=== PATIENT | male | born 1970 | race Caucasian/White ===

== ENCOUNTER 2020-12-26 15:22 | Inpatient (IN) | payer MEDICAID ==
[~2020-12-26] VITALS: Ht 190.5 cm; Wt 125.1 kg
[2020-12-26] MEDS ORDERED: morphine 4 MG/ML inj SYRINge IV PRN (16:40)
[2020-12-26] MEDS ORDERED: furosemide 10 MG/1 ML 10ml inj IV ONE (16:40)
[2020-12-26] MEDS ORDERED: piperacillin/tazo 3.375gm/50ml 50 ML IV ONE (16:40)
--- NOTE | 2020-12-26 17:33 | NUR ---
Pt still not able to void, bladder scan for 161 ml. PA notified
[2020-12-26 17:36] LABS: ALANINE AMINOTRANSFERASE 15 U/L (12-78); ALBUMIN 3.5 G/DL (3.4-5.0); ALBUMIN/GLOBULIN RATIO 0.8 (1.1-1.5); ALKALINE PHOSPHATASE 50 IU/L (46-116); ANION GAP 17 (8-16); ASPARTATE AMINO TRANSFERASE 16 U/L (10-37); BILIRUBIN,TOTAL 0.4 MG/DL (0.1-1.0); BLOOD UREA NITROGEN 40 MG/DL (7-18); BUN/CREATININE RATIO 23.1 (5.4-32.0); CALCIUM 9.8 MG/DL (8.5-10.1); CHLORIDE 99 MMOL/L (99-107); CREATININE 1.73 MG/DL (0.60-1.10); GLUCOSE 249 MG/DL (70-104); SODIUM 134 MMOL/L (135-145); TOTAL CARBON DIOXIDE 18.4 MMOL/L (24-32); TOTAL PROTEIN 7.8 G/DL (6.4-8.2); eGFR 42 ML/MIN
[2020-12-26] MEDS ORDERED: vancomycin/NS 1 GM ADD-VANTAGE 250 ML IV ONE (17:50)
[2020-12-26 17:53] LABS: BASOPHILS # (AUTO) 0.1 X10'3 (0-0.2); BASOPHILS % (AUTO) 0.9 % (0-1); EOSINOPHILS # (AUTO) 0.1 X10'3 (0-0.9); EOSINOPHILS % (AUTO) 0.9 % (0-6); HEMATOCRIT 42.9 % (42.0-52.0); HEMOGLOBIN 13.9 g/dl (14.0-17.9); LYMPHOCYTES # (AUTO) 1.6 X10'3 (1.1-4.8); LYMPHOCYTES % (AUTO) 24.6 % (21-51); MEAN CORPUSCULAR HEMOGLOBIN 29.1 PG (27.0-31.0); MEAN CORPUSCULAR HGB CONC 32.5 g/dL (33.0-36.5); MEAN CORPUSCULAR VOLUME 89.7 FL (78-98); MEAN PLATELET VOLUME 12.1 FL (7.4-10.4); MONOCYTES # (AUTO) 0.4 X10'3 (0-0.9); MONOCYTES % (AUTO) 6.8 % (2-12); NEUTROPHILS # (AUTO) 4.3 X10'3 (1.8-7.7); NEUTROPHILS % (AUTO) 66.8 % (42-75); PLATELET COUNT 155 X10'3 (140-440); RED BLOOD COUNT 4.79 X10'6 (4.70-6.10); RED CELL DISTRIBUTION WIDTH 14.2 % (11.5-14.5); WHITE BLOOD COUNT 6.4 X10'3 (4.5-11.0)
--- NOTE | 2020-12-26 17:54 | NUR ---
PA notified of corrected BNP level
[2020-12-26 17:55] LABS: GIANT PLATELET FEW; LARGE PLATELETS MODERATE; PLATELET ESTIMATE NORMAL
[2020-12-26] MEDS: MESSAGE TO NURSING PO SCH (18:00)
[2020-12-26] MEDS ORDERED: iohexol 350MG/ML 100ml bottle IV ONE (18:06)
[2020-12-26] MEDS ORDERED: LIDOcaine 2% 10ml TOPICAL JELLY (Urojet) MM ONE (18:10)
[2020-12-26 18:28] LABS: CLARITY,URINE CLOUDY (Clear); COLOR,URINE YELLOW (Yellow); GLUCOSE, URINE NEGATIVE (Neg); KETONES,URINE NEGATIVE (Neg); LEUKOCYTE ESTERASE ,URINE NEGATIVE (Neg); NITRITES, URINE NEGATIVE (Neg); OCCULT BLOOD,URINE NEGATIVE (Neg); PROTEIN,URINE TRACE mg/dl (Neg)
--- NOTE | 2020-12-26 18:30 | NUR ---
Pt voided about 20 ml, will place oseguera per PA
[2020-12-26 18:33] LABS: UA COLLECTION TYPE CLN CATCH MIDSTREAM
[2020-12-26 18:37] LABS: RBC,URINE 0-2 /HPF (0-2); WBC,URINE 0-4 /HPF (0-4)
[2020-12-26 18:38] LABS: BACTERIA,URINE FEW /HPF (Neg); MUCUS STRANDS FEW /LPF (Neg); SQUAMOUS EPITHELIAL CELL,UR MODERATE /LPF (FEW); TRANSITIONAL EPI CELLS,URINE FEW /HPF
[2020-12-26 18:39] LABS: AMORPHOUS URATES 2+; HYALINE CASTS 0-3 /LPF (NEGATIVE)
--- NOTE | 2020-12-26 18:53 | NUR ---
Pt resting in bed, vitals taken and oseguera catheter inserted. Pt has urine flowing into bag at this time. Pt states relief. Testicular swelling being monitored as well as blood pressure.
[2020-12-26] MEDS ORDERED: NPH,100V SQ (19:41)
[2020-12-26] MEDS ORDERED: ASPI-1265 PO (19:41)
[2020-12-26] MEDS ORDERED: MAGN296S70 PO (19:41)
[2020-12-26] MEDS ORDERED: GABA-530 PO (19:41)
[2020-12-26] MEDS ORDERED: METF500T PO (19:41)
[2020-12-26] MEDS ORDERED: LIRA0.6P2 SQ (19:41)
[2020-12-26] MEDS ORDERED: LISI-644 PO (19:41)
[2020-12-26] MEDS ORDERED: GEMF600T89 PO (19:41)
[2020-12-26] MEDS ORDERED: FURO-150 PO (19:46)
--- NOTE | 2020-12-26 21:43 | NUR ---
HOSPITALIST AT BEDSIDE FOR EVAL/ADMISSION
[2020-12-26] MEDS ORDERED: potassium Cl 20 mEq SR tablet PO PRN ×2 (22:05)
[2020-12-26] MEDS ORDERED: magnesium hydroxide 30ml (MOM) UD suspension PO PRN (22:05)
[2020-12-26] MEDS ORDERED: ondansetron/PF 4mg/2ml inj IV PRN (22:05)
[2020-12-26] MEDS ORDERED: acetaminophen 325mg tablet PO PRN (22:05)
[2020-12-26] MEDS ORDERED: potassium Cl 40MEQ/1/2NS 520ml 520 ML IV PRN ×2 (22:05)
[2020-12-26] MEDS ORDERED: mag hydrox/Alum hydrox/simeth 30ml oral suspension PO PRN (22:05)
[2020-12-26] MEDS ORDERED: glucagon, human recombinant 1mg kit SUBCUT PRN (22:10)
[2020-12-26] MEDS ORDERED: dextrose ORAL solution 15 GM/59 ML bottle PO PRN ×2 (22:10)
[2020-12-26] MEDS ORDERED: dextrose 50%-water 50ml dispensing syringe IV PRN ×2 (22:10)
[2020-12-26] MEDS ORDERED: MESSAGE TO PHARMACY PO ONE (22:10)
[2020-12-26 22:26] LABS: HEMOGLOBIN A1C 10.3 % (4.5-6.2)
[2020-12-26] MEDS ORDERED: diltiazem 5mg/ml 5ml inj. IV ONE ×2 (22:30→22:55)
[2020-12-26] MEDS ORDERED: diltiazem-D5W 125mg/125ml 125 ML IV SCH (22:45)
--- NOTE | 2020-12-26 22:45 | NUR ---
AZRA (BROTHER) PLEASE CALL FOR A RIDE [phone]
--- NOTE | 2020-12-26 22:45 | NUR ---
Pt moved from bed 14 to bed 4.
[2020-12-26] MEDS: diltiazem-NS 100mg/100ml 100 ML IV SCH (22:55)
--- NOTE | 2020-12-26 22:59 | NUR ---
PT IN AFIB WITH RVR RATE 160-170. GIVEN CARDIZEM 10 MG IV 20 MIN AGO WITH NO CHANGE. JUST GIVEN 2ND DOSE OF CARDIZEM 10 MG IV AND CARDIZEM GTT STARTED AT 5 MG HR. PT REPORTS NOT TAKING ANY MEDS FOR AFIB. DR. GONZALEZ AWARE OF EVENTS.
--- NOTE | 2020-12-26 23:04 | NUR ---
IPA 315A.
--- NOTE | 2020-12-26 23:15 | NUR ---
Per Dr. Mares, BLBEATRICE wrapped with ALLAN wrap towards heart
--- NOTE | 2020-12-26 23:38 | NUR ---
Per Dr. Mares, pt to remain in ER until HR is around 140. ELIZABETH Doe notified. Addendum: 12/27/20 at 0001 by VALENTINE Maia JOHNSON notified about keeping Pt. in ER until heart rate stable in 140's or below.
[2020-12-27] VITALS (11 sets, daily range): BP systolic 97–115; BP diastolic 63–76
--- NOTE | 2020-12-27 00:08 | NUR ---
Dr. Mares updated that pt has been on the cardizem gtt 1 hr 15 min and has been titrated up to 15 mg hr and that Pt received the cardizem IV push of 10mg two doses over 1.5 hr ago. Verbal received for amioderone 100 mg iv push x1 now.
[2020-12-27] MEDS ORDERED: amiodarone 50MG/ML inj IV ONE ×2 (00:15→00:45)
--- NOTE | 2020-12-27 00:45 | NUR ---
given amioderone 100 mg ivp 5 min ago, bp 105/78, hr 145. pt reporting no cp and no pain. denies any sob , but rr 30.
--- NOTE | 2020-12-27 01:02 | NUR ---
Dr. Mares ordering amioderone 150 mg iv push
--- NOTE | 2020-12-27 01:25 | NUR ---
2nd dose amioderone given, 150 mg. i spoke with Dr. Mares just prior to administration
--- NOTE | 2020-12-27 01:41 | NUR ---
Report to ELIZABETH Manrique, ACCE. IPA 315A. PTS HR HAS BEEN PRIMARILY UNDER 140'S SINCE LAST AMIODERONE IV PUSH.
--- NOTE | 2020-12-27 02:17 | NUR ---
patient arrived on the floor. On cardizem drip at 20mg/hr. HR still at upper 130's.
[2020-12-27] MEDS: diltiazem-NS 100mg/100ml 100 ML IV SCH ×5 (02:21→21:53)
[2020-12-27 05:41] LABS: EOSINOPHILS % (AUTO) 0.8 % (0-6); LYMPHOCYTES # (AUTO) 1.2 X10'3 (1.1-4.8); LYMPHOCYTES % (AUTO) 20.3 % (21-51); MEAN CORPUSCULAR HEMOGLOBIN 29.1 PG (27.0-31.0); MEAN CORPUSCULAR HGB CONC 32.5 g/dL (33.0-36.5); MONOCYTES # (AUTO) 0.4 X10'3 (0-0.9); NEUTROPHILS # (AUTO) 4.2 X10'3 (1.8-7.7); WHITE BLOOD COUNT 5.9 X10'3 (4.5-11.0)
[2020-12-27 05:43] LABS: BASOPHILS % (AUTO) 0.6 % (0-1); HEMATOCRIT 38.3 % (42.0-52.0); HEMOGLOBIN 12.4 g/dl (14.0-17.9); MEAN CORPUSCULAR VOLUME 89.7 FL (78-98); MEAN PLATELET VOLUME 11.6 FL (7.4-10.4); MONOCYTES % (AUTO) 6.2 % (2-12); NEUTROPHILS % (AUTO) 72.1 % (42-75); PLATELET COUNT 128 X10'3 (140-440); RED BLOOD COUNT 4.27 X10'6 (4.70-6.10)
[2020-12-27 05:51] LABS: ALANINE AMINOTRANSFERASE 14 U/L (12-78); ALBUMIN/GLOBULIN RATIO 0.8 (1.1-1.5); ALKALINE PHOSPHATASE 41 IU/L (46-116); ANION GAP 11 (8-16); ASPARTATE AMINO TRANSFERASE 13 U/L (10-37); BILIRUBIN,TOTAL 0.5 MG/DL (0.1-1.0); BLOOD UREA NITROGEN 39 MG/DL (7-18); BUN/CREATININE RATIO 23.5 (5.4-32.0); CALCIUM 9.1 MG/DL (8.5-10.1); CHLORIDE 101 MMOL/L (99-107); CREATININE 1.66 MG/DL (0.60-1.10); GLUCOSE 289 MG/DL (70-104); SODIUM 136 MMOL/L (135-145); TOTAL PROTEIN 6.7 G/DL (6.4-8.2); eGFR 44 ML/MIN
[2020-12-27 05:54] LABS: CHOL/HDL RATIO 3.4 (0.00-4.99); CHOLESTEROL 142 MG/DL (0-200); HDL CHOLESTEROL 42 MG/DL (35-60); LDL CHOLESTEROL 76 MG/DL (50-100); TRIGLYCERIDES 140 MG/DL (20-135)
[2020-12-27 06:13] LABS: LARGE PLATELETS FEW; PLATELET ESTIMATE DECREASED
--- NOTE | 2020-12-27 06:34 | NUR ---
Problems reprioritized. Patient report given, questions answered & plan of care reviewed with Carl-RN.
[2020-12-27] MEDS ORDERED: heparin, porcine 5000 units/ml vial SQ SCH (08:00)
[2020-12-27] MEDS ORDERED: levoFLOXACIN-Levaquin 500mg/D5 100 ML IV SCH (08:00)
[2020-12-27] MEDS ORDERED: lisinopril 20mg tablet PO SCH (08:00)
[2020-12-27] MEDS: K and/or MAG REPLACEMENT MC SCH ×2 (08:00→20:00)
[2020-12-27] MEDS: insulin Lispro (HumaLOG) vial - multi-dose SQ SCH ×3 (08:33→19:22)
[2020-12-27] MEDS: aspirin 81mg tab.chew PO SCH (08:38)
[2020-12-27] MEDS: enoxaparin 100mg/ml syringe SUBCUT SCH ×2 (08:39→19:34)
[2020-12-27] MEDS: furosemide 20 MG/2 ML vial IV SCH ×2 (08:40→19:34)
[2020-12-27 09:39] LABS: PARTIAL THROMBOPLASTIN TIME 24 SECONDS (22-32)
--- NOTE | 2020-12-27 14:45 | NUR ---
DM Consult: Pt A1c level is 10.3%. international sourcing manager visited pt at bedside to provide verbal and written DM education. Pt reports living with brother and has been cooking for him. Pt admits being inconsistent with taking diabetes medication and difficulty managing blood glucose. Encouraged pt to f/u with DM dietitian. D/w pt the importance of staying hydrated, carb-counting, having a high protein diet, and some complications of uncontrolled blood glucose. Pt is passive and verbalized understanding of DM education. Will provide full assessment on 12/31 Addendum: 12/27/20 at 1445 by Sravan Kennedy MEASUREMENT SUPERINTENDENT RD Amended: Links added. Addendum: 12/27/20 at [address] RD agree with landscape maintenance internship note
[2020-12-27] MEDS: vancomycin/NS 1 GM ADD-VANTAGE 250 ML IV SCH (15:25)
[2020-12-27] MEDS: piperacillin/tazo 3.375gm/50ml 50 ML IV SCH ×2 (17:06→23:59)
[2020-12-27] MEDS: MESSAGE TO NURSING PO SCH (18:00)
--- NOTE | 2020-12-27 19:27 | NUR ---
Called Dr. Mares regarding the patient's platelet being 128 and 100mg of lovenox SubQ scheduled for 1999. He okayed to administer the Lovenox despite the patient's platelet being 128. No other orders were given at this time.
[2020-12-27] MEDS: lactobacillus rhamnosus 10,000 MMU CELLS/CAPSULE PO SCH (19:34)
[2020-12-27] MEDS: insulin glargine (Lantus) pen - multi-dose SQ SCH (21:13)
[2020-12-28] VITALS (12 sets, daily range): BP systolic 95–108; BP diastolic 58–75
[2020-12-28] MEDS: diltiazem-NS 100mg/100ml 100 ML IV SCH (02:44)
[2020-12-28] MEDS: vancomycin/NS 1 GM ADD-VANTAGE 250 ML IV SCH (03:18)
[2020-12-28 05:51] LABS: BASOPHILS % (AUTO) 0.8 % (0-1); EOSINOPHILS # (AUTO) 0.1 X10'3 (0-0.9); EOSINOPHILS % (AUTO) 1.6 % (0-6); HEMATOCRIT 37.9 % (42.0-52.0); HEMOGLOBIN 12.4 g/dl (14.0-17.9); LYMPHOCYTES # (AUTO) 1.2 X10'3 (1.1-4.8); LYMPHOCYTES % (AUTO) 24.7 % (21-51); MEAN CORPUSCULAR HEMOGLOBIN 29.1 PG (27.0-31.0); MEAN CORPUSCULAR HGB CONC 32.7 g/dL (33.0-36.5); MEAN PLATELET VOLUME 11.2 FL (7.4-10.4); MONOCYTES # (AUTO) 0.4 X10'3 (0-0.9); MONOCYTES % (AUTO) 7.4 % (2-12); NEUTROPHILS # (AUTO) 3.2 X10'3 (1.8-7.7); NEUTROPHILS % (AUTO) 65.5 % (42-75); PLATELET COUNT 128 X10'3 (140-440); RED BLOOD COUNT 4.26 X10'6 (4.70-6.10); RED CELL DISTRIBUTION WIDTH 13.8 % (11.5-14.5); WHITE BLOOD COUNT 4.9 X10'3 (4.5-11.0)
--- NOTE | 2020-12-28 06:12 | NUR ---
Patient report received , questions answered & plan of care reviewed with night ELIZABETH Manrique .
--- NOTE | 2020-12-28 06:12 | NUR ---
Problems reprioritized. Patient report given, questions answered & plan of care reviewed with Katlin-ELIZABETH.
[2020-12-28 06:13] LABS: ALANINE AMINOTRANSFERASE 13 U/L (12-78); ALBUMIN/GLOBULIN RATIO 0.8 (1.1-1.5); ALKALINE PHOSPHATASE 38 IU/L (46-116); ANION GAP 7 (8-16); ASPARTATE AMINO TRANSFERASE 12 U/L (10-37); BILIRUBIN,TOTAL 0.5 MG/DL (0.1-1.0); BLOOD UREA NITROGEN 38 MG/DL (7-18); BUN/CREATININE RATIO 20.8 (5.4-32.0); CALCIUM 9.4 MG/DL (8.5-10.1); CHLORIDE 102 MMOL/L (99-107); CREATININE 1.83 MG/DL (0.60-1.10); GLUCOSE 98 MG/DL (70-104); POTASSIUM 4.2 MMOL/L (3.5-5.1); SODIUM 138 MMOL/L (135-145); TOTAL CARBON DIOXIDE 28.6 MMOL/L (24-32); TOTAL PROTEIN 6.7 G/DL (6.4-8.2); eGFR 39 ML/MIN
--- NOTE | 2020-12-28 06:15 | NUR ---
Patient in room MED 315. I have received report from ELIZABETH Manrique and had the opportunity to ask questions and assume patient care.
[2020-12-28] MEDS: furosemide 20 MG/2 ML vial IV SCH ×2 (07:20→19:18)
[2020-12-28] MEDS: piperacillin/tazo 3.375gm/50ml 50 ML IV SCH (07:20)
[2020-12-28] MEDS: enoxaparin 100mg/ml syringe SUBCUT SCH ×2 (07:21→19:18)
[2020-12-28] MEDS: lactobacillus rhamnosus 10,000 MMU CELLS/CAPSULE PO SCH ×2 (07:21→19:17)
[2020-12-28] MEDS: aspirin 81mg tab.chew PO SCH (07:21)
[2020-12-28] MEDS: diltiazem 30mg tablet PO SCH ×3 (07:51→19:17)
[2020-12-28] MEDS: K and/or MAG REPLACEMENT MC SCH ×2 (08:00→20:00)
[2020-12-28] MEDS: insulin Lispro (HumaLOG) vial - multi-dose SQ SCH ×3 (09:08→19:15)
--- NOTE | 2020-12-28 15:07 | NUR ---
PAGER ID: [phone] MESSAGE: Re: Delmar Venegas Room 315 HR has consistently been trending up since cardizem drip off and PO started. HR 120's to 130's. Last BP 95/67. Thanks, Zoila wright [phone]
--- NOTE | 2020-12-28 15:47 | NUR ---
PAGER ID: [phone] MESSAGE: Re: Delmar Venegas Room 315 2nd page - HR is still elevated in 120's with bursts into 130's. Current BP 94/67. Zoila [phone] Addendum: 12/28/20 at 1548 by Ziola Red RN MD will review and enter orders - awaiting orders.
[2020-12-28] MEDS: amiodarone 200mg tablet PO SCH ×2 (15:59→19:18)
--- NOTE | 2020-12-28 18:06 | NUR ---
Problems reprioritized. Patient report given, questions answered & plan of care reviewed with ELIZABETH Manrique.
[2020-12-28] MEDS: insulin glargine (Lantus) pen - multi-dose SQ SCH (21:31)
--- NOTE | 2020-12-29 01:29 | NUR ---
The patient's vancomycin dc and there was still vanc level ordered for 0230. Called pharmacy regarding the vancomycin level. They said there is no need for it and okayed to cancel the vancomycin level.
[2020-12-29 02:00] VITALS: BP 105/74
[2020-12-29] MEDS: diltiazem 30mg tablet PO SCH ×4 (02:03→19:42)
[2020-12-29] MEDS ORDERED: VANCOMYCIN LEVEL IV ONE (02:30)
[2020-12-29 06:08] LABS: BASOPHILS # (AUTO) 0.1 X10'3 (0-0.2); BASOPHILS % (AUTO) 1.2 % (0-1); EOSINOPHILS # (AUTO) 0.1 X10'3 (0-0.9); EOSINOPHILS % (AUTO) 2.2 % (0-6); HEMATOCRIT 39.5 % (42.0-52.0); HEMOGLOBIN 12.9 g/dl (14.0-17.9); LYMPHOCYTES # (AUTO) 1.6 X10'3 (1.1-4.8); LYMPHOCYTES % (AUTO) 34.7 % (21-51); MEAN CORPUSCULAR HGB CONC 32.6 g/dL (33.0-36.5); MEAN CORPUSCULAR VOLUME 88.8 FL (78-98); MEAN PLATELET VOLUME 11.1 FL (7.4-10.4); MONOCYTES # (AUTO) 0.3 X10'3 (0-0.9); MONOCYTES % (AUTO) 7.2 % (2-12); NEUTROPHILS # (AUTO) 2.5 X10'3 (1.8-7.7); NEUTROPHILS % (AUTO) 54.7 % (42-75); PLATELET COUNT 128 X10'3 (140-440); RED BLOOD COUNT 4.44 X10'6 (4.70-6.10); RED CELL DISTRIBUTION WIDTH 13.9 % (11.5-14.5); WHITE BLOOD COUNT 4.5 X10'3 (4.5-11.0)
[2020-12-29 06:23] LABS: ALANINE AMINOTRANSFERASE 17 U/L (12-78); ALBUMIN 3.1 G/DL (3.4-5.0); ALBUMIN/GLOBULIN RATIO 0.8 (1.1-1.5); ALKALINE PHOSPHATASE 41 IU/L (46-116); ANION GAP 9 (8-16); ASPARTATE AMINO TRANSFERASE 17 U/L (10-37); BILIRUBIN,TOTAL 0.5 MG/DL (0.1-1.0); BLOOD UREA NITROGEN 37 MG/DL (7-18); BUN/CREATININE RATIO 19.9 (5.4-32.0); CALCIUM 9.2 MG/DL (8.5-10.1); CHLORIDE 101 MMOL/L (99-107); CREATININE 1.86 MG/DL (0.60-1.10); GLUCOSE 119 MG/DL (70-104); POTASSIUM 3.6 MMOL/L (3.5-5.1); SODIUM 139 MMOL/L (135-145); TOTAL CARBON DIOXIDE 28.7 MMOL/L (24-32); TOTAL PROTEIN 7.1 G/DL (6.4-8.2); eGFR 38 ML/MIN
--- NOTE | 2020-12-29 06:33 | NUR ---
Problems reprioritized. Patient report given, questions answered & plan of care reviewed with Nely-RN(T).
[2020-12-29] MEDS: K and/or MAG REPLACEMENT MC SCH ×2 (08:00→20:00)
[2020-12-29] MEDS: lactobacillus rhamnosus 10,000 MMU CELLS/CAPSULE PO SCH ×2 (08:56→19:42)
[2020-12-29] MEDS: enoxaparin 100mg/ml syringe SUBCUT SCH (08:56)
[2020-12-29] MEDS: aspirin 81mg tab.chew PO SCH (08:56)
[2020-12-29] MEDS ORDERED: digoxin 250mcg/ml 2ml ampule IV ONE ×3 (09:35→20:50)
[2020-12-29] MEDS: insulin Lispro (HumaLOG) vial - multi-dose SQ SCH ×2 (10:20→13:56)
[2020-12-29] MEDS: amiodarone 200mg tablet PO SCH ×2 (10:34→19:42)
[2020-12-29] MEDS: furosemide 20 MG/2 ML vial IV SCH ×2 (11:54→19:43)
[2020-12-29] MEDS: metolazone 2.5mg tablet PO SCH (11:55)
[2020-12-29 15:00] VITALS: BP 100/58
[2020-12-29 18:00] VITALS: BP 97/67
[2020-12-29] MEDS: apixaban 5mg tablet PO SCH (19:42)
--- NOTE | 2020-12-29 20:38 | NUR ---
Page Sent PAGER ID: [phone] MESSAGE: Delmar Venegas in room 315 adm for scrotal swelling, found to be in afib. 120's to 130's. Pt on 400 amiodarone bid, 60 Cardizem bid, dig 0.5 this am dig .25 this pm. Dig 0.5 ordered this PM, wanted to clear that with you.- [phone] Chapo
[2020-12-29 22:00] VITALS: BP 103/71
[2020-12-29] MEDS: insulin glargine (Lantus) pen - multi-dose SQ SCH (23:14)
[2020-12-30 02:00] VITALS: BP 96/63
[2020-12-30] MEDS: diltiazem 30mg tablet PO SCH ×3 (02:00→13:19)
[2020-12-30 06:35] LABS: BASOPHILS % (AUTO) 0.9 % (0-1); EOSINOPHILS # (AUTO) 0.1 X10'3 (0-0.9); EOSINOPHILS % (AUTO) 2.4 % (0-6); HEMATOCRIT 38.2 % (42.0-52.0); HEMOGLOBIN 12.7 g/dl (14.0-17.9); LYMPHOCYTES # (AUTO) 1.3 X10'3 (1.1-4.8); LYMPHOCYTES % (AUTO) 32.3 % (21-51); MEAN CORPUSCULAR HGB CONC 33.2 g/dL (33.0-36.5); MEAN CORPUSCULAR VOLUME 87.5 FL (78-98); MEAN PLATELET VOLUME 10.1 FL (7.4-10.4); MONOCYTES # (AUTO) 0.3 X10'3 (0-0.9); MONOCYTES % (AUTO) 7.6 % (2-12); NEUTROPHILS # (AUTO) 2.4 X10'3 (1.8-7.7); NEUTROPHILS % (AUTO) 56.8 % (42-75); PLATELET COUNT 128 X10'3 (140-440); RED BLOOD COUNT 4.37 X10'6 (4.70-6.10); RED CELL DISTRIBUTION WIDTH 13.5 % (11.5-14.5); WHITE BLOOD COUNT 4.2 X10'3 (4.5-11.0)
[2020-12-30 06:55] LABS: ALANINE AMINOTRANSFERASE 19 U/L (12-78); ALBUMIN 3.1 G/DL (3.4-5.0); ALBUMIN/GLOBULIN RATIO 0.8 (1.1-1.5); ALKALINE PHOSPHATASE 38 IU/L (46-116); ANION GAP 6 (8-16); ASPARTATE AMINO TRANSFERASE 19 U/L (10-37); BILIRUBIN,TOTAL 0.5 MG/DL (0.1-1.0); BLOOD UREA NITROGEN 32 MG/DL (7-18); BUN/CREATININE RATIO 18.3 (5.4-32.0); CALCIUM 9.3 MG/DL (8.5-10.1); CHLORIDE 101 MMOL/L (99-107); CREATININE 1.75 MG/DL (0.60-1.10); GLUCOSE 117 MG/DL (70-104); POTASSIUM 3.2 MMOL/L (3.5-5.1); SODIUM 141 MMOL/L (135-145); TOTAL CARBON DIOXIDE 34.2 MMOL/L (24-32); TOTAL PROTEIN 7.1 G/DL (6.4-8.2); eGFR 41 ML/MIN
[2020-12-30 07:00] VITALS: BP 97/67
[2020-12-30] MEDS: lisinopril 2.5mg tablet PO SCH (08:00)
[2020-12-30] MEDS: K and/or MAG REPLACEMENT MC SCH ×2 (08:00→20:00)
[2020-12-30] MEDS: furosemide 20 MG/2 ML vial IV SCH ×2 (08:53→19:59)
[2020-12-30] MEDS: amiodarone 200mg tablet PO SCH (08:54)
[2020-12-30] MEDS: metolazone 2.5mg tablet PO SCH (08:54)
[2020-12-30] MEDS: aspirin 81mg tab.chew PO SCH (08:54)
[2020-12-30] MEDS: lactobacillus rhamnosus 10,000 MMU CELLS/CAPSULE PO SCH ×2 (08:55→22:15)
[2020-12-30] MEDS: apixaban 5mg tablet PO SCH ×2 (08:55→22:16)
[2020-12-30] MEDS: digoxin 250mcg (0.25mg) tablet PO SCH (09:03)
[2020-12-30 10:00] VITALS: BP 103/61
--- NOTE | 2020-12-30 13:02 | NUR ---
PAGER ID: [phone] MESSAGE: Teofilo Venegas Room 315 HR 150's, at rest - please advise. K 3.2 - replacing with 40mEq KCL - protocol has been d/c'd. Thanks, Aracelis [phone]
[2020-12-30] MEDS: insulin Lispro (HumaLOG) vial - multi-dose SQ SCH ×2 (13:24→18:17)
[2020-12-30 14:00] VITALS: BP 109/73
[2020-12-30] MEDS ORDERED: ondansetron 4mg rapidly disintigrating tab PO PRN (14:10)
[2020-12-30] MEDS: amiodarone/D5 360MG/200ML BAG 200 ML IV SCH ×2 (14:41→19:59)
--- NOTE | 2020-12-30 16:12 | NUR ---
Initial: Pt presented to ED with c/o scrotal edema and admit with acute CHF, atrial fibrillation, and anasarca per MD notes. Pt average PO intake is 75-100% of meals, meeting nutrient needs. Pt receiving carb-controlled, heart healthy and is on fluid restriction. Pt weight gain of 16.1 kg since admit likely d/t different weight scale method. Pt last BM 12/29, pt receiving bowel care as needed. Will continue to monitor. recs: 1. Continue carb-controlled, heart healthy, and dry tray diet 2. Continue bowel care as needed 3. Weight per rx Addendum: 12/30/20 at [address] RD agree with copywriting intern note Addendum: 12/30/20 at 1613 by Sravan DANIELSETIC INTERN RD Amended: Links added.
[2020-12-30] MEDS ORDERED: potassium Cl 20 mEq SR tablet PO PRN (17:45)
[2020-12-30] MEDS ORDERED: magnesium Cl slow-release 64mg tablet PO PRN (17:45)
[2020-12-30] MEDS ORDERED: magnesium 4gm in 100ml NS 100 ML IV PRN (17:45)
[2020-12-30] MEDS ORDERED: potassium Cl 40MEQ/1/2NS 520ml 520 ML IV PRN (17:45)
[2020-12-30 18:00] VITALS: BP 108/79
[2020-12-30] MEDS: carVEDilol 3.125mg tablet PO SCH (20:00)
--- NOTE | 2020-12-30 21:00 | NUR ---
Clarified with Dr. Friedman that he wanted amiodarone gtt to run continuously for 24 hours at 1 mg/min.
[2020-12-30 22:00] VITALS: BP 108/69
[2020-12-30] MEDS: potassium Cl 20 mEq SR tablet PO PRN (22:17)
[2020-12-30] MEDS: insulin glargine (Lantus) pen - multi-dose SQ SCH (22:19)
[2020-12-31] MEDS: potassium Cl 20 mEq SR tablet PO PRN (01:29)
[2020-12-31 02:00] VITALS: BP 101/77
[2020-12-31] MEDS: amiodarone/D5 360MG/200ML BAG 200 ML IV SCH ×4 (02:23→22:23)
[2020-12-31 06:00] VITALS: BP 100/70
[2020-12-31 06:18] LABS: BASOPHILS % (AUTO) 0.6 % (0-1); EOSINOPHILS # (AUTO) 0.1 X10'3 (0-0.9); EOSINOPHILS % (AUTO) 2.2 % (0-6); HEMATOCRIT 42.6 % (42.0-52.0); LYMPHOCYTES # (AUTO) 1.4 X10'3 (1.1-4.8); LYMPHOCYTES % (AUTO) 28.2 % (21-51); MEAN CORPUSCULAR HEMOGLOBIN 29.2 PG (27.0-31.0); MEAN CORPUSCULAR HGB CONC 32.9 g/dL (33.0-36.5); MEAN CORPUSCULAR VOLUME 88.7 FL (78-98); MEAN PLATELET VOLUME 10.1 FL (7.4-10.4); MONOCYTES # (AUTO) 0.4 X10'3 (0-0.9); MONOCYTES % (AUTO) 8.2 % (2-12); NEUTROPHILS # (AUTO) 3.1 X10'3 (1.8-7.7); NEUTROPHILS % (AUTO) 60.8 % (42-75); PLATELET COUNT 133 X10'3 (140-440); RED CELL DISTRIBUTION WIDTH 13.6 % (11.5-14.5)
[2020-12-31 06:41] LABS: ALANINE AMINOTRANSFERASE 18 U/L (12-78); ALBUMIN 3.2 G/DL (3.4-5.0); ALBUMIN/GLOBULIN RATIO 0.8 (1.1-1.5); ALKALINE PHOSPHATASE 41 IU/L (46-116); ANION GAP 8 (8-16); ASPARTATE AMINO TRANSFERASE 29 U/L (10-37); BILIRUBIN,TOTAL 0.5 MG/DL (0.1-1.0); BLOOD UREA NITROGEN 28 MG/DL (7-18); BUN/CREATININE RATIO 16.6 (5.4-32.0); CALCIUM 9.4 MG/DL (8.5-10.1); CHLORIDE 99 MMOL/L (99-107); CREATININE 1.69 MG/DL (0.60-1.10); GLUCOSE 150 MG/DL (70-104); POTASSIUM 3.7 MMOL/L (3.5-5.1); SODIUM 142 MMOL/L (135-145); TOTAL CARBON DIOXIDE 35.3 MMOL/L (24-32); TOTAL PROTEIN 7.4 G/DL (6.4-8.2); eGFR 43 ML/MIN
[2020-12-31] MEDS: lactobacillus rhamnosus 10,000 MMU CELLS/CAPSULE PO SCH ×2 (08:16→19:18)
[2020-12-31] MEDS: apixaban 5mg tablet PO SCH ×2 (08:17→19:18)
[2020-12-31] MEDS: aspirin 81mg tab.chew PO SCH (08:17)
[2020-12-31] MEDS: carVEDilol 3.125mg tablet PO SCH ×2 (08:17→19:18)
[2020-12-31] MEDS: lisinopril 2.5mg tablet PO SCH (08:17)
[2020-12-31] MEDS: metolazone 2.5mg tablet PO SCH (08:17)
[2020-12-31] MEDS: digoxin 250mcg (0.25mg) tablet PO SCH (08:18)
[2020-12-31] MEDS: furosemide 20 MG/2 ML vial IV SCH ×2 (08:19→19:17)
[2020-12-31] MEDS: K and/or MAG REPLACEMENT MC SCH ×2 (08:31→19:19)
[2020-12-31] MEDS: insulin Lispro (HumaLOG) vial - multi-dose SQ SCH ×3 (09:21→19:17)
[2020-12-31 12:00] VITALS: BP 96/73
[2020-12-31 15:00] VITALS: BP 107/58
[2020-12-31 18:00] VITALS: BP 115/76
[2020-12-31 22:00] VITALS: BP 105/71
[2020-12-31] MEDS: insulin glargine (Lantus) pen - multi-dose SQ SCH (22:16)
[2021-01-01 02:00] VITALS: BP 112/67
[2021-01-01] MEDS: amiodarone/D5 360MG/200ML BAG 200 ML IV SCH ×4 (04:09→19:11)
[2021-01-01 06:00] VITALS: BP 93/72
--- NOTE | 2021-01-01 06:27 | NUR ---
Patient in room MED 315. I have received report from bryn Cochran and had the opportunity to ask questions and assume patient care.
[2021-01-01] MEDS: K and/or MAG REPLACEMENT MC SCH ×2 (08:00→19:22)
[2021-01-01] MEDS: lisinopril 2.5mg tablet PO SCH (08:00)
[2021-01-01] MEDS: aspirin 81mg tab.chew PO SCH (08:18)
[2021-01-01] MEDS: apixaban 5mg tablet PO SCH ×2 (08:18→19:22)
[2021-01-01] MEDS: digoxin 250mcg (0.25mg) tablet PO SCH (08:19)
[2021-01-01] MEDS: carVEDilol 3.125mg tablet PO SCH (08:25)
[2021-01-01] MEDS: furosemide 20 MG/2 ML vial IV SCH ×2 (08:25→19:21)
[2021-01-01] MEDS: insulin Lispro (HumaLOG) vial - multi-dose SQ SCH ×2 (09:27→13:22)
[2021-01-01] MEDS: metolazone 2.5mg tablet PO SCH (09:28)
[2021-01-01] MEDS: lactobacillus rhamnosus 10,000 MMU CELLS/CAPSULE PO SCH ×2 (09:28→19:22)
[2021-01-01 10:00] VITALS: BP 97/72
[2021-01-01 14:00] VITALS: BP 85/64
[2021-01-01] MEDS ORDERED: bisacodyl 10mg suppository rectal RC PRN (15:45)
[2021-01-01 18:00] VITALS: BP 99/67
[2021-01-01] MEDS: carvedilol 6.25mg tablet PO SCH (19:22)
[2021-01-01] MEDS: insulin glargine (Lantus) pen - multi-dose SQ SCH (21:03)
[2021-01-01 22:00] VITALS: BP 106/71
--- NOTE | 2021-01-02 00:52 | NUR ---
Patient in room MED 315. I have received report from Chapo JOHNSON. and had the opportunity to ask questions and assume patient care. Pt resting in bed. NAD noted, RR even and unlabored. Safety precautios in place. Will continue to monitor.
[2021-01-02 02:00] VITALS: BP 114/72
[2021-01-02] MEDS: amiodarone/D5 360MG/200ML BAG 200 ML IV SCH ×4 (02:00→20:55)
[2021-01-02 06:00] VITALS: BP 108/69
--- NOTE | 2021-01-02 06:15 | NUR ---
Problems reprioritized. Patient report given, questions answered & plan of care reviewed with Iris JOHNSON.
--- NOTE | 2021-01-02 06:19 | NUR ---
Patient in room MED 315. I have received report from suzanne clemente and had the opportunity to ask questions and assume patient care.
[2021-01-02] MEDS: furosemide 20 MG/2 ML vial IV SCH ×2 (07:43→20:07)
[2021-01-02] MEDS: carvedilol 6.25mg tablet PO SCH ×2 (07:44→20:07)
[2021-01-02] MEDS: aspirin 81mg tab.chew PO SCH (07:44)
[2021-01-02] MEDS: digoxin 250mcg (0.25mg) tablet PO SCH (07:44)
[2021-01-02] MEDS: lactobacillus rhamnosus 10,000 MMU CELLS/CAPSULE PO SCH ×2 (07:44→20:07)
[2021-01-02] MEDS: apixaban 5mg tablet PO SCH ×2 (07:45→20:07)
[2021-01-02 07:51] LABS: ALBUMIN 3.4 G/DL (3.4-5.0); ANION GAP 5 (8-16); BLOOD UREA NITROGEN 33 MG/DL (7-18); BUN/CREATININE RATIO 21.7 (5.4-32.0); CALCIUM 9.9 MG/DL (8.5-10.1); CHLORIDE 91 MMOL/L (99-107); CREATININE 1.52 MG/DL (0.60-1.10); GLUCOSE 147 MG/DL (70-104); POTASSIUM 3.2 MMOL/L (3.5-5.1); SODIUM 136 MMOL/L (135-145); TOTAL CARBON DIOXIDE 39.6 MMOL/L (24-32); eGFR 49 ML/MIN
[2021-01-02] MEDS: metolazone 2.5mg tablet PO SCH (08:00)
[2021-01-02] MEDS: K and/or MAG REPLACEMENT MC SCH (08:00)
[2021-01-02 09:21] LABS: MAGNESIUM 1.6 MG/DL (1.5-2.4)
[2021-01-02] MEDS: insulin Lispro (HumaLOG) vial - multi-dose SQ SCH ×3 (09:39→18:57)
[2021-01-02] MEDS ORDERED: magnesium citrate 296ml oral solution PO ONE (09:45)
[2021-01-02 11:00] VITALS: BP 96/74
[2021-01-02] MEDS: potassium Cl 20 mEq SR tablet PO PRN ×2 (11:04→20:59)
[2021-01-02 14:00] VITALS: BP 99/62
--- NOTE | 2021-01-02 18:00 | NUR ---
Patient in room MED 315. I have received report from Iris JOHNSON and had the opportunity to ask questions and assume patient care. Assisted pt back to bed. NAD noted, RR even and unlabored. Pt voiced no concern. Safety precautions inplace. Will continue to monitor.
--- NOTE | 2021-01-02 18:20 | NUR ---
Problems reprioritized. Patient report given, questions answered & plan of care reviewed with bryn tolentino.
[2021-01-02] MEDS: amiodarone 200mg tablet PO SCH (20:07)
[2021-01-02] MEDS ORDERED: magnesium Cl slow-release 64mg tablet PO PRN (20:20)
[2021-01-02] MEDS ORDERED: magnesium 4gm in 100ml NS 100 ML IV PRN (20:20)
[2021-01-02] MEDS ORDERED: potassium Cl 20 mEq SR tablet PO PRN (20:20)
[2021-01-02] MEDS: insulin glargine (Lantus) pen - multi-dose SQ SCH (20:46)
[2021-01-02 22:00] VITALS: BP 94/57
[2021-01-03 02:00] VITALS: BP 99/67
[2021-01-03] MEDS: amiodarone/D5 360MG/200ML BAG 200 ML IV SCH ×4 (02:27→20:28)
[2021-01-03] MEDS: potassium Cl 20 mEq SR tablet PO PRN (05:01)
[2021-01-03 06:00] VITALS: BP 96/67
--- NOTE | 2021-01-03 06:20 | NUR ---
Patient in room MED 315. I have received report from bryn palacios and had the opportunity to ask questions and assume patient care.
--- NOTE | 2021-01-03 06:27 | NUR ---
Problems reprioritized. Patient report given, questions answered & plan of care reviewed with Iris JOHNSON.
[2021-01-03 07:41] LABS: ALBUMIN 3.4 G/DL (3.4-5.0); ANION GAP 2 (8-16); BLOOD UREA NITROGEN 43 MG/DL (7-18); BUN/CREATININE RATIO 22.8 (5.4-32.0); CHLORIDE 91 MMOL/L (99-107); CREATININE 1.89 MG/DL (0.60-1.10); GLUCOSE 142 MG/DL (70-104); POTASSIUM 3.5 MMOL/L (3.5-5.1); SODIUM 135 MMOL/L (135-145); eGFR 38 ML/MIN
[2021-01-03 07:52] LABS: TOTAL CARBON DIOXIDE 41.8 MMOL/L (24-32)
[2021-01-03] MEDS: lactobacillus rhamnosus 10,000 MMU CELLS/CAPSULE PO SCH ×2 (07:58→20:36)
[2021-01-03] MEDS: apixaban 5mg tablet PO SCH ×2 (07:59→20:35)
[2021-01-03] MEDS: carvedilol 6.25mg tablet PO SCH ×2 (07:59→20:36)
[2021-01-03] MEDS: digoxin 250mcg (0.25mg) tablet PO SCH (07:59)
[2021-01-03] MEDS: metolazone 2.5mg tablet PO SCH (07:59)
[2021-01-03] MEDS: amiodarone 200mg tablet PO SCH ×2 (07:59→20:36)
[2021-01-03] MEDS: furosemide 20 MG/2 ML vial IV SCH ×2 (08:00→20:36)
[2021-01-03] MEDS: aspirin 81mg tab.chew PO SCH (08:06)
[2021-01-03] MEDS: K and/or MAG REPLACEMENT MC SCH ×2 (08:10→20:00)
[2021-01-03] MEDS: insulin Lispro (HumaLOG) vial - multi-dose SQ SCH ×3 (08:19→21:17)
[2021-01-03 08:37] LABS: MAGNESIUM 2.4 MG/DL (1.5-2.4)
--- NOTE | 2021-01-03 10:00 | NUR ---
aware co2=41.8
[2021-01-03 11:00] VITALS: BP 104/66
[2021-01-03 14:00] VITALS: BP 102/68
--- NOTE | 2021-01-03 16:00 | NUR ---
PT AMB 50 FT IN HALLWAY ON MONITER,HEART RATE UP BRIEFLY 140-150 LESS THAN 1 MIN ,SLOWING TO 100-120 WITH PAUSE IN AMB,PT ASYMPTOMATIC,UP IN CHAIR FOR DINNER,HEART RATE AT REST 95-110
[2021-01-03 18:00] VITALS: BP 109/73
--- NOTE | 2021-01-03 18:07 | NUR ---
Problems reprioritized. Patient report given, questions answered & plan of care reviewed with .ELIZABETH JEFFRIES
--- NOTE | 2021-01-03 18:35 | NUR ---
Patient in room MED 315. I have received report from Winnie, and had the opportunity to ask questions and assume patient care.
--- NOTE | 2021-01-03 21:04 | NUR ---
unable to cover the patient's dinner blood sugar coverage. Will check his 2100 blood sugar and administer insulin as ordered. patient is alert, oriented x4. Not at any distress.
[2021-01-03] MEDS: insulin glargine (Lantus) pen - multi-dose SQ SCH (21:16)
[2021-01-03] MEDS ORDERED: acetaZOLAMIDE IV 500mg inj IV ONE (21:40)
[2021-01-03 22:00] VITALS: BP 109/61
[2021-01-04] MEDS: amiodarone/D5 360MG/200ML BAG 200 ML IV SCH ×5 (01:56→22:28)
[2021-01-04 02:00] VITALS: BP 95/70
[2021-01-04 06:00] VITALS: BP 97/67
--- NOTE | 2021-01-04 06:15 | NUR ---
Problems reprioritized. Patient report given, questions answered & plan of care reviewed with Vu.
[2021-01-04 06:20] LABS: BASOPHILS # (AUTO) 0.1 X10'3 (0-0.2); BASOPHILS % (AUTO) 0.9 % (0-1); EOSINOPHILS # (AUTO) 0.1 X10'3 (0-0.9); EOSINOPHILS % (AUTO) 1.7 % (0-6); HEMATOCRIT 43.3 % (42.0-52.0); HEMOGLOBIN 14.3 g/dl (14.0-17.9); LYMPHOCYTES # (AUTO) 1.7 X10'3 (1.1-4.8); LYMPHOCYTES % (AUTO) 25.3 % (21-51); MEAN CORPUSCULAR HEMOGLOBIN 28.6 PG (27.0-31.0); MEAN CORPUSCULAR VOLUME 86.8 FL (78-98); MEAN PLATELET VOLUME 10.9 FL (7.4-10.4); MONOCYTES # (AUTO) 0.4 X10'3 (0-0.9); MONOCYTES % (AUTO) 6.5 % (2-12); NEUTROPHILS # (AUTO) 4.4 X10'3 (1.8-7.7); NEUTROPHILS % (AUTO) 65.6 % (42-75); PLATELET COUNT 143 X10'3 (140-440); RED BLOOD COUNT 4.99 X10'6 (4.70-6.10); RED CELL DISTRIBUTION WIDTH 13.7 % (11.5-14.5); WHITE BLOOD COUNT 6.7 X10'3 (4.5-11.0)
[2021-01-04 06:30] LABS: ALANINE AMINOTRANSFERASE 26 U/L (12-78); ALBUMIN 3.5 G/DL (3.4-5.0); ALBUMIN/GLOBULIN RATIO 0.7 (1.1-1.5); ALKALINE PHOSPHATASE 55 IU/L (46-116); ANION GAP 6 (8-16); ASPARTATE AMINO TRANSFERASE 22 U/L (10-37); BILIRUBIN,TOTAL 0.9 MG/DL (0.1-1.0); BLOOD UREA NITROGEN 49 MG/DL (7-18); BUN/CREATININE RATIO 23.8 (5.4-32.0); CALCIUM 9.9 MG/DL (8.5-10.1); CHLORIDE 88 MMOL/L (99-107); CREATININE 2.06 MG/DL (0.60-1.10); GLUCOSE 204 MG/DL (70-104); MAGNESIUM 2.7 MG/DL (1.5-2.4); PHOSPHORUS 4.7 MG/DL (2.3-4.5); POTASSIUM 3.3 MMOL/L (3.5-5.1); SODIUM 133 MMOL/L (135-145); TOTAL CARBON DIOXIDE 39.5 MMOL/L (24-32); TOTAL PROTEIN 8.3 G/DL (6.4-8.2); eGFR 34 ML/MIN
[2021-01-04] MEDS: K and/or MAG REPLACEMENT MC SCH ×2 (08:00→20:00)
[2021-01-04] MEDS ORDERED: furosemide 20 MG/2 ML vial IV SCH (08:00)
[2021-01-04] MEDS: lactobacillus rhamnosus 10,000 MMU CELLS/CAPSULE PO SCH ×2 (08:50→19:15)
[2021-01-04] MEDS: digoxin 250mcg (0.25mg) tablet PO SCH (08:50)
[2021-01-04] MEDS: carvedilol 6.25mg tablet PO SCH ×2 (08:50→19:16)
[2021-01-04] MEDS: apixaban 5mg tablet PO SCH ×2 (08:50→19:16)
[2021-01-04] MEDS: aspirin 81mg tab.chew PO SCH (08:50)
[2021-01-04] MEDS: amiodarone 200mg tablet PO SCH ×2 (08:50→19:17)
[2021-01-04] MEDS: metolazone 2.5mg tablet PO SCH (08:52)
[2021-01-04] MEDS: insulin Lispro (HumaLOG) vial - multi-dose SQ SCH ×3 (08:57→19:15)
[2021-01-04] MEDS: potassium Cl 20 mEq SR tablet PO PRN ×2 (09:02→19:21)
[2021-01-04] MEDS: acetaZOLAMIDE IV 500mg inj IV SCH (10:14)
[2021-01-04 10:19] LABS: LARGE PLATELETS MODERATE; PLATELET ESTIMATE NORMAL
--- NOTE | 2021-01-04 10:54 | NUR ---
Orders to D/C lasix IV and start on 40mg PO Lasix BID put in per Dr. Friedman. Orders to D/C metalozone put in as well. Orders to start on 10 mEq of potassium PO BID put in per Dr. Friedman.
[2021-01-04 11:00] VITALS: BP 131/92
--- NOTE | 2021-01-04 18:30 | NUR ---
Patient in room MED 315. I have received report from Vu, and had the opportunity to ask questions and assume patient care.
[2021-01-04] MEDS: furosemide 40mg tablet PO SCH (19:16)
[2021-01-04] MEDS: POTASSIUM BICARBONATE/CIT AC 10 MEQ TABLET.EFF PO SCH (19:21)
[2021-01-04] MEDS: insulin glargine (Lantus) pen - multi-dose SQ SCH (21:00)
--- NOTE | 2021-01-04 21:18 | NUR ---
Patient's 2100 blood sugar was 2100. Patient refused the lantus. No sign and symptom of hypoglycemia. Resting comfortably.
[2021-01-04 22:00] VITALS: BP 131/92
[2021-01-05 02:00] VITALS: BP 100/68
[2021-01-05] MEDS: amiodarone/D5 360MG/200ML BAG 200 ML IV SCH ×4 (04:22→23:32)
[2021-01-05 06:00] VITALS: BP 104/69
[2021-01-05 06:28] LABS: BASOPHILS % (AUTO) 0.8 % (0-1); EOSINOPHILS # (AUTO) 0.2 X10'3 (0-0.9); EOSINOPHILS % (AUTO) 3.2 % (0-6); HEMATOCRIT 41.8 % (42.0-52.0); LYMPHOCYTES # (AUTO) 1.8 X10'3 (1.1-4.8); LYMPHOCYTES % (AUTO) 31.3 % (21-51); MEAN CORPUSCULAR HEMOGLOBIN 28.6 PG (27.0-31.0); MEAN CORPUSCULAR HGB CONC 33.3 g/dL (33.0-36.5); MEAN CORPUSCULAR VOLUME 85.9 FL (78-98); MEAN PLATELET VOLUME 10.5 FL (7.4-10.4); MONOCYTES # (AUTO) 0.5 X10'3 (0-0.9); MONOCYTES % (AUTO) 8.5 % (2-12); NEUTROPHILS # (AUTO) 3.3 X10'3 (1.8-7.7); NEUTROPHILS % (AUTO) 56.2 % (42-75); PLATELET COUNT 144 X10'3 (140-440); RED BLOOD COUNT 4.87 X10'6 (4.70-6.10); RED CELL DISTRIBUTION WIDTH 14.1 % (11.5-14.5); WHITE BLOOD COUNT 5.9 X10'3 (4.5-11.0)
--- NOTE | 2021-01-05 06:34 | NUR ---
Problems reprioritized. Patient report given, questions answered & plan of care reviewed with Dora (T).
[2021-01-05 06:40] LABS: ALANINE AMINOTRANSFERASE 29 U/L (12-78); ALBUMIN 3.4 G/DL (3.4-5.0); ALBUMIN/GLOBULIN RATIO 0.7 (1.1-1.5); ALKALINE PHOSPHATASE 52 IU/L (46-116); ANION GAP 10 (8-16); ASPARTATE AMINO TRANSFERASE 29 U/L (10-37); BILIRUBIN,TOTAL 0.8 MG/DL (0.1-1.0); BLOOD UREA NITROGEN 57 MG/DL (7-18); BUN/CREATININE RATIO 27.7 (5.4-32.0); CALCIUM 9.8 MG/DL (8.5-10.1); CHLORIDE 87 MMOL/L (99-107); CREATININE 2.06 MG/DL (0.60-1.10); GLUCOSE 142 MG/DL (70-104); MAGNESIUM 2.7 MG/DL (1.5-2.4); PHOSPHORUS 5.5 MG/DL (2.3-4.5); SODIUM 133 MMOL/L (135-145); TOTAL CARBON DIOXIDE 36.5 MMOL/L (24-32); TOTAL PROTEIN 8.2 G/DL (6.4-8.2); eGFR 34 ML/MIN
[2021-01-05 06:42] LABS: POTASSIUM 2.8 MMOL/L (3.5-5.1)
[2021-01-05 07:27] LABS: LARGE PLATELETS FEW; PLATELET ESTIMATE NORMAL
[2021-01-05] MEDS: potassium Cl 40MEQ/1/2NS 520ml 520 ML IV PRN ×2 (07:41→13:29)
--- NOTE | 2021-01-05 07:48 | NUR ---
Paged Dr. Way regarding no tele order for patient and patient is on amio gtt. PAGER ID: [phone] MESSAGE: 315. PALMER KINSEY. PATIENT HAS NO TELE ORDER AND ON AMIO GTT. MAY I PUT IN TELE ORDER? THANK YOU. REGI Moreira [phone] Addendum: 01/05/21 at 0935 by Regi Hamlin RN Talked to Dr. Way when he came on the floor and he said to order for patient to be placed on band sawing machine operator.
[2021-01-05] MEDS: apixaban 5mg tablet PO SCH ×2 (08:51→19:28)
[2021-01-05] MEDS: furosemide 40mg tablet PO SCH (08:51)
[2021-01-05] MEDS: POTASSIUM BICARBONATE/CIT AC 10 MEQ TABLET.EFF PO SCH ×2 (08:52→19:27)
[2021-01-05] MEDS: digoxin 250mcg (0.25mg) tablet PO SCH (08:52)
[2021-01-05] MEDS: amiodarone 200mg tablet PO SCH ×2 (08:52→19:28)
[2021-01-05] MEDS: lactobacillus rhamnosus 10,000 MMU CELLS/CAPSULE PO SCH ×2 (08:52→19:28)
[2021-01-05] MEDS: aspirin 81mg tab.chew PO SCH (08:52)
[2021-01-05] MEDS: carvedilol 6.25mg tablet PO SCH ×2 (08:52→19:28)
[2021-01-05] MEDS: K and/or MAG REPLACEMENT MC SCH ×2 (08:53→20:31)
[2021-01-05] MEDS: acetaZOLAMIDE IV 500mg inj IV SCH (09:02)
--- NOTE | 2021-01-05 09:34 | NUR ---
Orders to place patient on telemetry monitoring put in per Dr. Way.
--- NOTE | 2021-01-05 09:58 | NUR ---
Reassessment: Pt continues on heart healthy CHO controlled diet with 2 L fluid restriction, documented with 75-100% PO intake. D/w dietary to send double protein BIDLD for satiety. No new scaled weight however wt likely to fluctuate d/t fluid balance, receiving Lasix with -28,897 mL fluid balance since admit per I&O. Serum K low at 2.8 mg/dL, pt receiving PRN replacement. Noted that Phos is elevated at 5.5 mg/dL, up from 4.7 mg/dL 01/04. LBM 01/03. Will continue to follow and monitor renal labs and need for further nutrition intervention. recs: 1. Continue carb controlled heart healthy diet with 2L fluid restriction per MD 2. Double protein BIDLD 3. Monitor renal labs 4. Bowel care per rx 5. Scaled weights per rx Addendum: 01/05/21 at [address] Amended: Links added.
[2021-01-05] MEDS: insulin Lispro (HumaLOG) vial - multi-dose SQ SCH ×3 (10:59→19:27)
[2021-01-05 11:00] VITALS: BP 100/68
[2021-01-05 15:00] VITALS: BP 102/63
--- NOTE | 2021-01-05 18:30 | NUR ---
Patient in room MED 315. I have received report from Aracelis JOHNSON and had the opportunity to ask questions and assume patient care.
[2021-01-05 18:46] VITALS: BP 106/73
[2021-01-05] MEDS: furosemide 20MG tablet PO SCH (20:00)
[2021-01-05] MEDS: insulin glargine (Lantus) pen - multi-dose SQ SCH (21:11)
[2021-01-05 22:00] VITALS: BP 101/65
[2021-01-06 02:07] VITALS: BP 100/74
[2021-01-06 06:00] VITALS: BP 106/58
--- NOTE | 2021-01-06 06:03 | NUR ---
Problems reprioritized. Patient report given, questions answered & plan of care reviewed with Aracelis Peterson.
[2021-01-06 07:32] LABS: BASOPHILS # (AUTO) 0.1 X10'3 (0-0.2); BASOPHILS % (AUTO) 1.1 % (0-1); EOSINOPHILS # (AUTO) 0.2 X10'3 (0-0.9); EOSINOPHILS % (AUTO) 3.9 % (0-6); HEMOGLOBIN 14.2 g/dl (14.0-17.9); LYMPHOCYTES # (AUTO) 1.7 X10'3 (1.1-4.8); LYMPHOCYTES % (AUTO) 32.3 % (21-51); MEAN CORPUSCULAR HEMOGLOBIN 28.7 PG (27.0-31.0); MEAN CORPUSCULAR VOLUME 86.8 FL (78-98); MEAN PLATELET VOLUME 10.6 FL (7.4-10.4); MONOCYTES # (AUTO) 0.5 X10'3 (0-0.9); MONOCYTES % (AUTO) 9.6 % (2-12); NEUTROPHILS # (AUTO) 2.9 X10'3 (1.8-7.7); NEUTROPHILS % (AUTO) 53.1 % (42-75); PLATELET COUNT 161 X10'3 (140-440); RED BLOOD COUNT 4.95 X10'6 (4.70-6.10); RED CELL DISTRIBUTION WIDTH 13.7 % (11.5-14.5); WHITE BLOOD COUNT 5.4 X10'3 (4.5-11.0)
[2021-01-06 08:15] LABS: ALANINE AMINOTRANSFERASE 34 U/L (12-78); ALBUMIN 3.4 G/DL (3.4-5.0); ALBUMIN/GLOBULIN RATIO 0.7 (1.1-1.5); ALKALINE PHOSPHATASE 58 IU/L (46-116); ANION GAP 11 (8-16); ASPARTATE AMINO TRANSFERASE 36 U/L (10-37); BILIRUBIN,TOTAL 0.7 MG/DL (0.1-1.0); BLOOD UREA NITROGEN 61 MG/DL (7-18); BUN/CREATININE RATIO 28.4 (5.4-32.0); CALCIUM 9.6 MG/DL (8.5-10.1); CHLORIDE 90 MMOL/L (99-107); CREATININE 2.15 MG/DL (0.60-1.10); GLUCOSE 177 MG/DL (70-104); MAGNESIUM 2.5 MG/DL (1.5-2.4); PHOSPHORUS 4.5 MG/DL (2.3-4.5); POTASSIUM 3.3 MMOL/L (3.5-5.1); SODIUM 133 MMOL/L (135-145); TOTAL CARBON DIOXIDE 31.6 MMOL/L (24-32); TOTAL PROTEIN 8.3 G/DL (6.4-8.2); eGFR 33 ML/MIN
[2021-01-06] MEDS: lactobacillus rhamnosus 10,000 MMU CELLS/CAPSULE PO SCH (08:27)
[2021-01-06] MEDS: POTASSIUM BICARBONATE/CIT AC 10 MEQ TABLET.EFF PO SCH (08:27)
[2021-01-06] MEDS: aspirin 81mg tab.chew PO SCH (08:27)
[2021-01-06] MEDS: apixaban 5mg tablet PO SCH (08:27)
[2021-01-06] MEDS: digoxin 250mcg (0.25mg) tablet PO SCH (08:28)
[2021-01-06] MEDS: amiodarone 200mg tablet PO SCH (08:28)
[2021-01-06] MEDS: carvedilol 6.25mg tablet PO SCH (08:29)
[2021-01-06] MEDS: K and/or MAG REPLACEMENT MC SCH (08:30)
[2021-01-06 09:02] LABS: LARGE PLATELETS MODERATE; PLATELET ESTIMATE NORMAL
[2021-01-06] MEDS: furosemide 20MG tablet PO SCH (09:08)
[2021-01-06] MEDS: insulin Lispro (HumaLOG) vial - multi-dose SQ SCH ×2 (09:12→14:02)
[2021-01-06] MEDS ORDERED: CARV6.253 PO (10:31)
[2021-01-06] MEDS ORDERED: DIGO250T4 PO (10:31)
[2021-01-06] MEDS ORDERED: APIX5TAB3 PO (10:31)
[2021-01-06] MEDS ORDERED: AMIO200T67 PO (10:31)
[2021-01-06] MEDS ORDERED: FURO-150 PO (10:31)
[2021-01-06 11:00] VITALS: BP 105/72
[2021-01-06] MEDS ORDERED: potassium Cl 20 mEq SR tablet PO PRN (11:40)
[2021-01-06] MEDS: potassium Cl 20 mEq SR tablet PO PRN ×2 (11:47→16:24)
--- NOTE | 2021-01-06 16:35 | NUR ---
Discharge instructions given to patient, verbalized understanding, discharged home with brother, condition stable.
== END 2021-01-06 16:39 | disposition home health service (06) | DRG 194 ==
LOC: ER 15:23 → ED HOLD 22:05 → MED 3N 12-27 02:03
PROVIDERS: ADMIT Internal Medicine; ATTEND Family Medicine
PROC: BW211ZZ Computerized Tomography (CT Scan) of Abdomen and Pelvis using Low Osmolar Contrast (ICD-10-PCS; principal; 2020-12-26)
DX: I50.23 Acute on chronic systolic (congestive) heart failure (principal); R18.8 Other ascites; N17.9 Acute kidney failure, unspecified; K86.89 Other specified diseases of pancreas; D69.6 Thrombocytopenia, unspecified; E11.22 Type 2 diabetes mellitus with diabetic chronic kidney disease; E87.2 Acidosis; B18.2 Chronic viral hepatitis C; E87.3 Alkalosis; F17.200 Nicotine dependence, unspecified, uncomplicated; I25.10 Atherosclerotic heart disease of native coronary artery without angina pectoris; I25.5 Ischemic cardiomyopathy; I42.8 Other cardiomyopathies; I48.0 Paroxysmal atrial fibrillation; K72.90 Hepatic failure, unspecified without coma; N50.819 Testicular pain, unspecified; D72.819 Decreased white blood cell count, unspecified; N18.30 Chronic kidney disease, stage 3 unspecified; R00.0 Tachycardia, unspecified; E87.6 Hypokalemia; T50.2X5A Adverse effect of carbonic-anhydrase inhibitors, benzothiadiazides and other diuretics, initial encounter; N50.89 Other specified disorders of the male genital organs; Z79.01 Long term (current) use of anticoagulants; Z79.82 Long term (current) use of aspirin; Z79.899 Other long term (current) drug therapy; Z86.19 Personal history of other infectious and parasitic diseases; Y92.89 Other specified places as the place of occurrence of the external cause; Z79.4 Long term (current) use of insulin; Z71.6 Tobacco abuse counseling
CPT/HCPCS: 36415; 71045; 74177; 76870; 76937; 80048; 80053; 80061; 80162; 81001; 82948; 83036; 83605; 83735; 83880; 84100; 84145; 84439; 84443; 84480; 84484; 85008; 85025; 85610; 85730; 87040; 87081; 93005; 93306; 93308; 96365; 96366; 96368; 96375; 97110; 97116; 97161; 97530; 99285; G0378; J1120; J1160; J1650; J1815; J1940; J1956; J2270; J2543; J3370; J3480; J3490; Q9967

== ENCOUNTER 2022-08-01 15:36 | Inpatient (IN) | payer MEDICAID ==
[~2022-08-01] VITALS: Ht 190.5 cm; Wt 120.9 kg
[~2022-08-01 15:36] MED LIST: AMIO200T67 PO; APIX5TAB3 PO; ASPI-1265 PO; CARV6.253 PO; DIGO250T4 PO; FURO-150 PO; GABA-530 PO; GEMF600T89 PO; LIRA0.6P2 SQ; MAGN296S70 PO; NPH,100V SQ
[2022-08-01 16:19] LABS: BASOPHILS # (AUTO) 0.1 X10'3 (0-0.2); BASOPHILS % (AUTO) 1.2 % (0-1); EOSINOPHILS # (AUTO) 0.2 X10'3 (0-0.9); EOSINOPHILS % (AUTO) 2.7 % (0-6); HEMATOCRIT 35.5 % (42.0-52.0); HEMOGLOBIN 12.5 g/dl (14.0-17.9); LYMPHOCYTES # (AUTO) 1.8 X10'3 (1.1-4.8); LYMPHOCYTES % (AUTO) 27.4 % (21-51); MEAN CORPUSCULAR HEMOGLOBIN 33.7 PG (27.0-31.0); MEAN CORPUSCULAR VOLUME 96.2 FL (78-98); MEAN PLATELET VOLUME 9.5 FL (7.4-10.4); MONOCYTES # (AUTO) 0.5 X10'3 (0-0.9); NEUTROPHILS # (AUTO) 3.9 X10'3 (1.8-7.7); NEUTROPHILS % (AUTO) 60.7 % (42-75); PLATELET COUNT 205 X10'3 (140-440); RED CELL DISTRIBUTION WIDTH 14.5 % (11.5-14.5); WHITE BLOOD COUNT 6.4 X10'3 (4.5-11.0)
[2022-08-01 16:28] LABS: ALANINE AMINOTRANSFERASE 21 U/L (12-78); ALBUMIN 3.1 G/DL (3.4-5.0); ALBUMIN/GLOBULIN RATIO 0.8 (1.1-1.5); ALKALINE PHOSPHATASE 74 IU/L (46-116); ANION GAP 12 (8-16); ASPARTATE AMINO TRANSFERASE 16 U/L (10-37); BILIRUBIN,TOTAL 0.3 MG/DL (0.1-1.0); BLOOD UREA NITROGEN 37 MG/DL (7-18); BUN/CREATININE RATIO 13.9 (5.4-32.0); CALCIUM 8.4 MG/DL (8.5-10.1); CHLORIDE 99 MMOL/L (99-107); CREATININE 2.67 MG/DL (0.60-1.10); GLUCOSE 322 MG/DL (70-104); POTASSIUM 4.3 MMOL/L (3.5-5.1); SODIUM 134 MMOL/L (135-145); TOTAL CARBON DIOXIDE 23.3 MMOL/L (24-32); eGFR 25 ML/MIN
[2022-08-01] MEDS ORDERED: normal saline 1000ML IV soln IVB ONE ×2 (17:10→20:20)
[2022-08-01] MEDS ORDERED: potassium CL 10mEq/100ml bag 100 ML IV PRN (21:35)
[2022-08-01] MEDS ORDERED: mag hydrox/Alum hydrox/simeth 30ml oral suspension PO PRN (21:35)
[2022-08-01] MEDS ORDERED: acetaminophen 325mg tablet PO PRN (21:35)
[2022-08-01] MEDS ORDERED: magnesium 2GM in 50ml NS 50 ML IV PRN (21:35)
[2022-08-01] MEDS ORDERED: POTASSIUM BICARB 20meq eff tab 20 MEQ TABLET.EFF PO PRN ×2 (21:35)
[2022-08-01] MEDS ORDERED: ondansetron/PF 4mg/2ml inj IV PRN (21:35)
[2022-08-01] MEDS ORDERED: magnesium Cl slow-release 64mg tablet PO PRN (21:35)
[2022-08-01] MEDS ORDERED: magnesium 4gm in 100ml NS 100 ML IV PRN (21:35)
[2022-08-01] MEDS ORDERED: PERFLUTREN PROTEIN-A MICROSPHR (Optison) 0.22 MG/ML 3ML VIAL IV PRN (21:35)
[2022-08-01] MEDS ORDERED: magnesium hydroxide 30ml (MOM) UD suspension PO PRN (21:35)
[2022-08-01] MEDS ORDERED: MESSAGE TO PHARMACY PO ONE (21:40)
[2022-08-01] MEDS ORDERED: dextrose 50%-water 50ml dispensing syringe IV PRN ×2 (21:40)
[2022-08-01] MEDS ORDERED: glucagon, human recombinant 1mg kit SUBCUT PRN (21:40)
[2022-08-01] MEDS ORDERED: DEXTROSE 15 GM of carb/4 tabs (each vial/BOTTLE has 4 tablets) PO PRN ×2 (21:40)
[2022-08-01 22:43] LABS: APTT 23 SECONDS (22-32)
[2022-08-01] MEDS: normal saline 1000ml 1,000 ML IV SCH (22:51)
[2022-08-01 22:52] LABS: MAGNESIUM 1.9 MG/DL (1.5-2.4); POTASSIUM 4.6 MMOL/L (3.5-5.1)
[2022-08-02 03:08] LABS: BASOPHILS # (AUTO) 0.1 X10'3 (0-0.2); BASOPHILS % (AUTO) 1.3 % (0-1); EOSINOPHILS # (AUTO) 0.2 X10'3 (0-0.9); EOSINOPHILS % (AUTO) 3.1 % (0-6); HEMATOCRIT 33.1 % (42.0-52.0); HEMOGLOBIN 11.7 g/dl (14.0-17.9); LYMPHOCYTES # (AUTO) 2.8 X10'3 (1.1-4.8); LYMPHOCYTES % (AUTO) 39.8 % (21-51); MEAN CORPUSCULAR HEMOGLOBIN 33.8 PG (27.0-31.0); MEAN CORPUSCULAR HGB CONC 35.4 g/dL (33.0-36.5); MEAN CORPUSCULAR VOLUME 95.4 FL (78-98); MEAN PLATELET VOLUME 9.9 FL (7.4-10.4); MONOCYTES # (AUTO) 0.4 X10'3 (0-0.9); MONOCYTES % (AUTO) 6.4 % (2-12); NEUTROPHILS # (AUTO) 3.4 X10'3 (1.8-7.7); NEUTROPHILS % (AUTO) 49.4 % (42-75); PLATELET COUNT 191 X10'3 (140-440); RED BLOOD COUNT 3.47 X10'6 (4.70-6.10); RED CELL DISTRIBUTION WIDTH 14.6 % (11.5-14.5); WHITE BLOOD COUNT 6.9 X10'3 (4.5-11.0)
[2022-08-02 03:22] LABS: ALANINE AMINOTRANSFERASE 21 U/L (12-78); ALBUMIN 3.1 G/DL (3.4-5.0); ALBUMIN/GLOBULIN RATIO 0.8 (1.1-1.5); ALKALINE PHOSPHATASE 63 IU/L (46-116); ANION GAP 11 (8-16); ASPARTATE AMINO TRANSFERASE 14 U/L (10-37); BILIRUBIN,TOTAL 0.3 MG/DL (0.1-1.0); BLOOD UREA NITROGEN 43 MG/DL (7-18); BUN/CREATININE RATIO 14.3 (5.4-32.0); CALCIUM 8.7 MG/DL (8.5-10.1); CHLORIDE 100 MMOL/L (99-107); GLUCOSE 238 MG/DL (70-104); POTASSIUM 4.5 MMOL/L (3.5-5.1); SODIUM 135 MMOL/L (135-145); TOTAL CARBON DIOXIDE 24.5 MMOL/L (24-32); TOTAL PROTEIN 7.1 G/DL (6.4-8.2); eGFR 22 ML/MIN
[2022-08-02] MEDS: K and/or MAG REPLACEMENT MC SCH ×2 (08:00→20:00)
--- NOTE | 2022-08-02 08:03 | NUR ---
SPOKE TO DR ADAMS REGARDING PT STATUS ,INFORMED MD THAT PT IS BEEN D/C AND ALL THE MEDS ARE D/C , PER MD HE HAS NOT D/C THE PT .
[2022-08-02] MEDS: aspirin 81mg tab.chew PO SCH (08:30)
[2022-08-02] MEDS: docusate sod 100mg capsule PO SCH ×2 (08:30→20:17)
--- NOTE | 2022-08-02 09:42 | NUR ---
CALLLED DIETRY TO BRING THE [facility] CONTROL FOOD TRAY WE HAVEN'T RECIEVED THIS AM , PER DIETERY THEY SENT IT ,TOLD IT WAS NOT IN CART.DIETRY WILL SEND THE NEW FOOD TRAY AND THEN WILL CORRECT THE B.S.
--- NOTE | 2022-08-02 09:48 | NUR ---
DR ADAMS CAME TO NURSES STATION ,CHECKED THE PT LAB VALUES ,CREATINE IS HIGH ,VERBAL ORDER TO START NORMAL SALINE 125 ML/HR IT WAS RUNNING AT 40 ML/HR ,ORTHOSTATIC VITALS FOR DIZZINESS.WILL FOLLOW THE ORDERS.
[2022-08-02] MEDS ORDERED: normal saline 1000ml 1,000 ML IV SCH (09:50)
[2022-08-02] MEDS: insulin Lispro (HumaLOG) vial - multi-dose SQ SCH ×2 (10:16→14:14)
[2022-08-02 11:04] LABS: CLARITY,URINE CLEAR (Clear); COLOR,URINE YELLOW (Yellow); GLUCOSE, URINE >=1000 mg/dl (Neg); KETONES,URINE NEGATIVE (Neg); LEUKOCYTE ESTERASE ,URINE NEGATIVE (Neg); NITRITES, URINE NEGATIVE (Neg); OCCULT BLOOD,URINE NEGATIVE (Neg); PROTEIN,URINE NEGATIVE (Neg); UROBILINOGEN,URINE 0.2 E.U/dL (0.2-1.0)
[2022-08-02 11:13] LABS: UA COLLECTION TYPE VOIDED
[2022-08-02 11:17] LABS: BACTERIA,URINE NONE SEEN /HPF (Neg); MUCUS STRANDS NONE SEEN /LPF (Neg); RBC,URINE NONE SEEN /HPF (0-2); SQUAMOUS EPITHELIAL CELL,UR FEW /LPF (FEW); WBC,URINE 0-4 /HPF (0-4)
[2022-08-02 11:18] LABS: SPERM FEW /HPF (NEGATIVE)
[2022-08-02] MEDS: normal saline 1000ml 1,000 ML IV SCH ×2 (14:15→18:35)
[2022-08-02 17:19] VITALS: BP 122/78
[2022-08-02] MEDS ORDERED: AMIO200T61 PO (18:18)
[2022-08-02] MEDS ORDERED: ASPI-1397 PO (18:18)
[2022-08-02] MEDS ORDERED: FURO20TA4 PO (18:18)
[2022-08-02] MEDS ORDERED: IBUP-1985 PO (18:18)
[2022-08-02] MEDS ORDERED: GABA300C PO (18:18)
[2022-08-02] MEDS ORDERED: LISI20TA28 PO (18:18)
[2022-08-02] MEDS ORDERED: METO-411 PO (18:18)
[2022-08-02] MEDS ORDERED: HUM100IN SQ (18:18)
[2022-08-02 20:00] VITALS: BP_SYST 102; BP_SYST 114; BP_SYST 137; BP_DIAS 57; BP_DIAS 64; BP_DIAS 71
[2022-08-02] MEDS: insulin glargine (Lantus) pen - multi-dose SQ SCH ×2 (20:20→20:25)
--- NOTE | 2022-08-02 20:25 | NUR ---
Gfr 22 less than 30 gave 6 units per protocol
[2022-08-02 22:00] VITALS: BP 135/81
[2022-08-03 02:00] VITALS: BP 114/64
[2022-08-03] MEDS: normal saline 1000ml 1,000 ML IV SCH (05:56)
--- NOTE | 2022-08-03 06:38 | NUR ---
Patient in room PCU 3013. I have received report from myrna clemente and had the opportunity to ask questions and assume patient care.
[2022-08-03 07:15] VITALS: BP 148/71
[2022-08-03] MEDS: docusate sod 100mg capsule PO SCH (07:23)
[2022-08-03] MEDS: aspirin 81mg tab.chew PO SCH (07:23)
[2022-08-03] MEDS: K and/or MAG REPLACEMENT MC SCH (08:00)
[2022-08-03 08:34] LABS: ALBUMIN 3.2 G/DL (3.4-5.0); ANION GAP 14 (8-16); BLOOD UREA NITROGEN 37 MG/DL (7-18); CALCIUM 9.3 MG/DL (8.5-10.1); CHLORIDE 103 MMOL/L (99-107); CREATININE 2.05 MG/DL (0.60-1.10); GLUCOSE 270 MG/DL (70-104); POTASSIUM 4.4 MMOL/L (3.5-5.1); SODIUM 141 MMOL/L (135-145); TOTAL CARBON DIOXIDE 23.9 MMOL/L (24-32); eGFR 34 ML/MIN
[2022-08-03] MEDS: insulin Lispro (HumaLOG) vial - multi-dose SQ SCH (09:25)
--- NOTE | 2022-08-03 11:40 | NUR ---
PT DISCHARGED IN STABLE CONDITION. LEFT FACILITY IN PRIVATE VEHICLE WITH BROTHER. IV DC CANULA INTACT. FOLLOW UP INSTRUCTIONS GIVEN, ALL QUESTIONS ANSWERED. ALL BELONGINGS IN HAND. Addendum: 08/03/22 at 1231 by Alida Pedersen RN Amended: Links added.
== END 2022-08-03 11:38 | disposition home health service (06) | DRG 422 ==
LOC: ER 15:37 → ED HOLD 21:38 → UNDODISIN 21:40 → PCU 3S 08-02 17:12
PROVIDERS: ADMIT Internal Medicine; ATTEND Internal Medicine
DX: E86.0 Dehydration (principal); N17.0 Acute kidney failure with tubular necrosis; I42.9 Cardiomyopathy, unspecified; E11.22 Type 2 diabetes mellitus with diabetic chronic kidney disease; I95.1 Orthostatic hypotension; E11.40 Type 2 diabetes mellitus with diabetic neuropathy, unspecified; N20.0 Calculus of kidney; B19.20 Unspecified viral hepatitis C without hepatic coma; I48.0 Paroxysmal atrial fibrillation; Z20.822 Contact with and (suspected) exposure to COVID-19; I12.9 Hypertensive chronic kidney disease with stage 1 through stage 4 chronic kidney disease, or unspecified chronic kidney disease; E11.65 Type 2 diabetes mellitus with hyperglycemia; E78.5 Hyperlipidemia, unspecified; N18.9 Chronic kidney disease, unspecified; Z79.01 Long term (current) use of anticoagulants; Z79.899 Other long term (current) drug therapy; Z79.82 Long term (current) use of aspirin; Z79.4 Long term (current) use of insulin
CPT/HCPCS: 36415; 71045; 76770; 80048; 80053; 81001; 82542; 82948; 83735; 83880; 84132; 84443; 84484; 85025; 85610; 85730; 87081; 87811; 93005; 93306; 96360; 99285; A4615; G0378; J1815; J7030; J7120

== ENCOUNTER 2024-07-15 11:26 | Emergency (ER) | payer MEDICAID ==
[~2024-07-15] VITALS: Ht 190.5 cm; Wt 113.6 kg
[~2024-07-15 11:26] MED LIST changes: +AMI200T PO; -AMIO200T67 PO; -ASPI-1265 PO; +ASPI-1397 PO; -CARV6.253 PO; -DIGO250T4 PO; -FURO-150 PO; +FURO20TA4 PO; -GABA-530 PO; +GABA300C PO; +HUM100IN SQ; +IBUP-1985 PO; -LIRA0.6P2 SQ; -MAGN296S70 PO; -NPH,100V SQ
[2024-07-15 12:04] LABS: BASOPHILS # (AUTO) 0.1 X10'3 (0-0.2); BASOPHILS % (AUTO) 1.1 % (0-1); EOSINOPHILS # (AUTO) 0.3 X10'3 (0-0.9); HEMATOCRIT 37.4 % (42.0-52.0); HEMOGLOBIN 12.7 g/dl (14.0-17.9); LYMPHOCYTES # (AUTO) 1.9 X10'3 (1.1-4.8); LYMPHOCYTES % (AUTO) 25.2 % (21-51); MEAN CORPUSCULAR HEMOGLOBIN 31.1 PG (27.0-31.0); MEAN CORPUSCULAR VOLUME 91.4 FL (78-98); MEAN PLATELET VOLUME 8.6 FL (7.4-10.4); MONOCYTES # (AUTO) 0.5 X10'3 (0-0.9); MONOCYTES % (AUTO) 6.7 % (2-12); NEUTROPHILS # (AUTO) 4.8 X10'3 (1.8-7.7); PLATELET COUNT 248 X10'3 (140-440); RED CELL DISTRIBUTION WIDTH 14.5 % (11.5-14.5); WHITE BLOOD COUNT 7.6 X10'3 (4.5-11.0)
[2024-07-15 12:18] LABS: ALANINE AMINOTRANSFERASE 32 U/L (12-78); ALBUMIN 3.6 G/DL (3.4-5.0); ALBUMIN/GLOBULIN RATIO 0.8 (1.1-1.5); ALKALINE PHOSPHATASE 73 IU/L (46-116); ANION GAP 9 (8-16); ASPARTATE AMINO TRANSFERASE 21 U/L (10-37); BILIRUBIN,TOTAL 0.8 MG/DL (0.1-1.0); BLOOD UREA NITROGEN 20 MG/DL (7-18); BUN/CREATININE RATIO 13.7 (10.0-20.0); CALCIUM 9.2 MG/DL (8.5-10.1); CHLORIDE 102 MMOL/L (99-107); CREATININE 1.46 MG/DL (0.60-1.10); GLUCOSE 171 MG/DL (70-104); POTASSIUM 4.6 MMOL/L (3.5-5.1); SODIUM 136 MMOL/L (135-145); TOTAL CARBON DIOXIDE 25.5 MMOL/L (24-32); TOTAL PROTEIN 8.2 G/DL (6.4-8.2); eCRCL 68 ML/MIN; eGFR 50 ML/MIN
[2024-07-15 12:27] LABS: PRO BRAIN NATRIURETIC PEPTIDE 165 PG/ML (0-125)
[2024-07-15 15:14] VITALS: BP 154/89; PULSE 82; RESP 16; TEMP 98; O2SAT 98
== END 2024-07-15 15:15 | disposition home or self-care (01) ==
LOC: ER 11:26
DX: R07.81 Pleurodynia (principal); H54.8 Legal blindness, as defined in USA; R53.1 Weakness; E11.9 Type 2 diabetes mellitus without complications; Z79.899 Other long term (current) drug therapy; Z79.82 Long term (current) use of aspirin
CPT/HCPCS: 36415; 71045; 80053; 83880; 84484; 85025; 93005; 99285

== ENCOUNTER 2025-08-10 13:47 | Inpatient (IN) | payer MEDICAID ==
[~2025-08-10] VITALS: Ht 190.5 cm; Wt 122.7 kg
[~2025-08-10 13:47] MED LIST changes: -AMI200T PO; +AMIO200T76 PO; -IBUP-1985 PO; +IBUP600T52 PO
--- NOTE | 2025-08-10 14:33 | ELECTROCARDIOGRAPH REPORT ---
[facility] Test Date: 2025-08-10 Test Time: 14:30:01 Pat Name: PALMER KINSEY Department: [facility]-ER Patient ID: [facility]-[id number] Room: [facility] Gender: M [employer]: : 1970 Requested By: LAURA SERRANO Order Number: [id number] Reading MD: Dr. Leonardo Dempsey Measurements Intervals [place] Rate: 99 P: -4 MS: 146 QRS: -40 QRSD: 94 T: 65 QT: 315 QTc: 405 Interpretive Statements Sinus rhythm Left anterior fascicular block Anteroseptal infarct, old Electronically Signed On 08-27-2025 7:44:[address] Leonardo Dempsey Please click the below link to view image of tracing.
[2025-08-10 14:42] LABS: MEAN PLATELET VOLUME 9.0 FL (7.4-10.4); RED CELL DISTRIBUTION WIDTH 13.6 % (11.5-14.5)
[2025-08-10] MEDS: normal saline 1000ml 1,000 ML IV ONE ×3 (14:43→17:36)
[2025-08-10 15:04] LABS: CREATININE 3.47 MG/DL (0.60-1.10); PRO BRAIN NATRIURETIC PEPTIDE 1995 PG/ML (0-125); TOTAL CARBON DIOXIDE 24.1 MMOL/L (24-32); eCRCL 28 ML/MIN; eGFR 18 ML/MIN
--- NOTE | 2025-08-10 15:10 | RADIOLOGY REPORT ---
CLINICAL HISTORY: CP TECHNIQUE: Single view of the chest was obtained. COMPARISON: DI CHEST,SINGLE VIEW on DOS: 07/15/24, CHEST,SINGLE VIEW on DOS: 08/01/22, CHEST,SINGLE VIEW on DOS: 01/03/21, CHEST,SINGLE VIEW on DOS: 12/26/20 FINDINGS: The heart size normal with pulmonary vascular congestion. There are perihilar opacities. IMPRESSION: Pulmonary vascular congestion. Perihilar opacities, favor pulmonary edema.
--- NOTE | 2025-08-10 15:15 | Physician Documentation ---
Addendum CHIEF COMPLAINT/HPI: The patient is a 55-year-old male with a history of intellectual delay, insulin- dependent type 2 diabetes, left foot infection who is brought in accompanied by his caregiver who reports that he has been lethargic for the past two days, spending most of the time lying in bed. There is also worsening of the left foot infection compared with yesterday. He presents with a fever. REVIEW OF SYSTEMS: Not obtainable due to patient intellectual delay. PHYSICAL EXAMINATION: Vitals and nursing note reviewed. Constitutional: General: Patient is awake, alert, oriented x 4 in no acute distress and well appearing. Speech is clear and lucid. Appearance: Normal appearance. Patient is not ill-appearing, toxic-appearing or diaphoretic. HENT: Head: Normocephalic and atraumatic. Mouth: Mucous membranes are moist. Pharynx: Oropharynx is clear. Eyes: General: No scleral icterus. Extraocular Movements: Extraocular movements intact. Pupils: Pupils are equal, round, and reactive to light. Neck: Supple, no Kernig or Brudzinski sign. Cardiovascular: Rate and Rhythm: Normal rate and regular rhythm. Heart sounds: No murmur heard. Pulmonary: Effort: No respiratory distress. Breath sounds: No wheezing, rhonchi or rales. Abdominal: General: There is no distension. Palpations: There is no fluid wave, hepatomegaly or mass. Tenderness: There is no abdominal tenderness. There is no guarding. Musculoskeletal: General: Ulceration on the bottom of the left foot over the head of the 1st metatarsal with swelling and redness of the distal foot. Skin: Coloration: Skin is not jaundiced. Findings: No erythema or rash. Neurological: Mental Status: Patient is alert. MEDICAL DECISION MAKING: PROCEDURE: Ultrasound Guided right internal jugular Central Venous Line Insertion DIAGNOSIS: Septic shock Procedure Performed by Colten Serrano MD INFORMED CONSENT: Informed Consent was obtained. Procedural pause was observed at 1630. I have verified the correct patient, correct procedure, correct position, correct site, and available equipment. The site was marked. PROCEDURE START TIME: 1630 PROCEDURE STOP TIME: 1650 INDICATION: Administration of pressors PROCEDURE IN DETAIL: The patient and ultrasound transducer were prepped and draped in sterile fashion. Using the linear probe covered in a sterile sheath, a short axis view of the vein was obtained. This vein was completely compressible and was identified as separate from the adjacent non-compressible arterial structure. No intraluminal clot was visualized. Longitudinal views of the target vein were also obtained. No intravascular thrombus was identified. Under dynamic ultrasound guidance, an 18 gauge needle was advanced with return of dark red, non-pulsatile blood. A wire was advanced without difficulty. A 0.5 cm incision was made at the skin and the subcutaneous tissue is dilated. The catheter was advanced over the wire via the Seldinger technique and the wire was removed. All ports flushed without difficulty. The catheter was secured in place with sutures and the entrance site covered with a sterile, transparent, semi-permeable dressing With placement of CHG Biopatch. Placement was confirmed by radiography. These images were captured, recorded, and archived. The patient tolerated the procedure well with no complications. Blood loss was minimal. Conclusion: Successful central venous catheterization under ultrasound guidance. This 55-year-old male presents with fever, septic shock, left foot infection, chest infection, elevated troponin and acute on chronic kidney injury. I have started him on fluids and antibiotics and will get him admitted to the ICU. Departure Disposition: ADMITTED INPATIENT Impression: Primary Impression: Septic shock Condition: Critical COLTEN SERRANO MD Aug 10, 2025 15:15
[2025-08-10] MEDS: NORepinephrine 8mg/ 250ml NS 250 ML IV PRN (16:04)
[2025-08-10] MEDS ORDERED: SEMA2PEN SUBCUT (16:55)
[2025-08-10] MEDS ORDERED: CARV-50 PO (16:55)
[2025-08-10] MEDS ORDERED: AMLO2.5T2 PO (16:55)
[2025-08-10] MEDS ORDERED: CHOL200026 PO (16:55)
[2025-08-10] MEDS ORDERED: ATOR80TA13 PO (16:55)
[2025-08-10] MEDS ORDERED: LISI20TA28 PO (16:55)
[2025-08-10] MEDS ORDERED: ESCI10TA PO (16:55)
--- NOTE | 2025-08-10 17:17 | RADIOLOGY REPORT ---
CLINICAL HISTORY: central line placement confirmation TECHNIQUE: Single view of the chest was obtained. COMPARISON: DI CHEST,SINGLE VIEW on DOS: 08/10/25, DI CHEST,SINGLE VIEW on DOS: 07/15/24, CHEST,SINGLE VIEW on DOS: 08/01/22, CHEST,SINGLE VIEW on DOS: 01/03/21, CHEST,SINGLE VIEW on DOS: 12/26/20 FINDINGS: A right IJ line terminates at the cavoatrial junction. The heart size is borderline enlarged with unchanged pulmonary vascular congestion. There is no dense consolidation. IMPRESSION: Pulmonary vascular congestion.
[2025-08-10] MEDS ORDERED: morphine 4 MG/ML inj SYRINge IV PRN (17:35)
[2025-08-10] MEDS ORDERED: ondansetron/PF 4mg/2ml inj IV PRN (17:35)
[2025-08-10] MEDS ORDERED: magnesium hydroxide 30ml (MOM) UD suspension PO PRN (17:35)
[2025-08-10] MEDS: VANCOMYCIN 2GM/400ML H20 (PEG) 400 ML IV ONE (17:36)
--- NOTE | 2025-08-10 17:46 | HISTORY AND PHYSICAL ---
History of Present Illness End CC ~ Admission Diagnosis:.: Severe Sepsis History of Present Illness H/O IDDM sent to ER due to Low BP. Pt with L Foot wound. Has been going to wound care for several weeks. According to group care worker, wound is getting worse. Pressors started in the ER after IVF bolus. Allergies: Coded Allergies: No Known Allergies (Unverified , 07/15/24) Home Medications Home Medications Active Eliquis (Apixaban) 5 Mg Tablet 5 Mg PO BID Reported Lisinopril 20 Mg Tablet 1 Tab PO DAILY 30 Days Lipitor (Atorvastatin Calcium) 80 Mg Tablet 1 Tab PO DAILY 30 Days Coreg* (Carvedilol) 12.5 Mg Tablet 6.25 Tab PO BID 30 Days Vitamin D3 (Cholecalciferol (Vitamin D3)) 50 Mcg (2000 Unit) Tablet 100 Mcg PO DAILY 30 Days Lexapro (Escitalopram Oxalate) 10 Mg Tablet 1 Tab PO DAILY 30 Days Ozempic (Semaglutide) 2 Mg/0.75 Ml (8 Mg/3 Ml) Pen.injctr 0.2 Mg SUBCUT Q7D 30 Days Norvasc* (Amlodipine Besylate) 2.5 Mg Tablet 10 Tab PO DAILY 30 Days Aspirin EC (Aspirin) 81 Mg Tablet.dr 1 Tab PO DAILY Furosemide 20 Mg Tablet 1 Tab PO DAILY Humulin 70/30 Kwikpen (Hum Insulin NPH/Reg Insulin Hm) 100 Unit/1 Ml Insuln.pen 0 SQ BID 40 units before breakfast and 42 units before dinner Neurontin (Gabapentin) 300 Mg Capsule 1 Cap PO TID Past Surgical History Past Surgical History: noncontributory Past Social History Alcohol Use: None Drug Use: None Lives In: Home Advance Care Planning Advanced Care plannin - 30 Minutes Review of Systems Integumentary: Reports: wound(s) Physical Exam Last Vital Signs recorded: Temperature: 100.8, Source: Axillary, Heart Rate: 86, Respiratory Rate: 29, BP: 89/43, Pulse Oximetry: 93, Weight: 122.730 General Appearance: alert, no apparent distress EENT: PERRL/EOMI Neck: full range of motion Respiratory: lungs clear Cardiovascular: normal peripheral pulses Peripheral Pulses: 1+ carotid (R), 1+ carotid (L), 1+ radial (R), 1+ radial (L), 1+ femoral (R), 1+ femoral (L), 1+ dorsalis pedis (R), 1+ dorsalis pedis (L), 1+ posterior tib (R), 1+ posterior tib (L), 1+ other Gastrointestinal: bowels sounds present Extremities: no edema Neurologic: oriented x4 Skin L Foot wound with yellowish discoloration Results Diagram Lab Result Diagram: 08/10/25142108/10/251421 Assessment/Plan 1-Severe Sepsis + Shock due to Infected Diabetic Foot -Broad spectrum abx -Check MRI -Pressors as needed -Fluid resuscitation 2-DM -BS control Kai Epstein CC time 35min DARRON EPSTEIN MD Aug 10, 2025 17:46
[2025-08-10] MEDS: ringers solution, lacted 1,000 ML IV SCH (19:30)
[2025-08-10] MEDS ORDERED: piperacillin/tazo 3.375gm/50ml 50 ML IV SCH (20:00)
[2025-08-10] MEDS: insulin glargine (Lantus) pen - multi-dose SQ SCH (20:00)
[2025-08-10] MEDS: albumin (Human) 5% 250ml 250 ML IV ONE (20:56)
[2025-08-10 22:25] VITALS: BP 112/61; PULSE 91; RESP 20; TEMP 97.7; O2SAT 97
[2025-08-10 22:45] VITALS: RESP 20; O2SAT 97
[2025-08-10] MEDS: morphine 4 MG/ML inj SYRINge IV PRN (22:57)
[2025-08-10] MEDS: piperacillin/tazo 4.5gm/100ml 100 ML IV SCH (23:36)
[2025-08-11 02:00] VITALS: BP 123/69; PULSE 96; RESP 23; TEMP 98.4; O2SAT 92
[2025-08-11 05:14] LABS: MEAN PLATELET VOLUME 8.8 FL (7.4-10.4); RED CELL DISTRIBUTION WIDTH 13.9 % (11.5-14.5)
[2025-08-11 05:27] LABS: CREATININE 2.77 MG/DL (0.60-1.10); PHOSPHORUS 3.1 MG/DL (2.3-4.5); TOTAL CARBON DIOXIDE 20.8 MMOL/L (24-32); eCRCL 36 ML/MIN; eGFR 24 ML/MIN
[2025-08-11 06:00] VITALS: BP 121/54; PULSE 96; RESP 25; TEMP 97.8; O2SAT 95
[2025-08-11 08:00] VITALS: RESP 18; O2SAT 98
[2025-08-11] MEDS: pantoprazole 40mg Tablet.DR PO SCH (09:44)
[2025-08-11] MEDS: enoxaparin 40mg/0.4ml syringe SUBCUT SCH (09:45)
[2025-08-11] MEDS ORDERED: CARV6.253 PO (10:16)
[2025-08-11 10:40] LABS: MEAN PLATELET VOLUME 8.6 FL (7.4-10.4); RED CELL DISTRIBUTION WIDTH 14.0 % (11.5-14.5)
--- NOTE | 2025-08-11 13:49 | RADIOLOGY REPORT ---
CLINICAL HISTORY: Left foot osteomyelitis. Left foot infection. TECHNIQUE: Multi sequence multi planar MRI images of the left midfoot and forefoot were obtained without IV contrast. COMPARISON: None FINDINGS: There is a wound at the plantar aspect of the forefoot near the level of the 1st MTP joint with adjacent subcutaneous edema and ill-defined fluid, likely cellulitis and possible phlegmon. There is prominent fluid in the 1st intermetatarsal bursa. There is no evidence for osteomyelitis. No evidence of acute osseous abnormality. There is moderate subcutaneous edema throughout the rest of the midfoot and forefoot, which is nonspecific, may be due to cellulitis and/or other inflammation or venous stasis changes. There is a cutaneous fluid collection along the plantar medial aspect of the foot measuring up to 4.6 cm in greatest dimension, possible skin blistering, although correlation with clinical findings is needed. Marked fatty atrophy of the intrinsic musculature of the forefoot. IMPRESSION: 1. Wound at the plantar aspect of the forefoot near the 1st MTP joint with adjacent soft tissue inflammatory changes, likely cellulitis and possible phlegmon in the appropriate clinical setting. 2. No evidence for osteomyelitis. 3. Additional findings as described above.
[2025-08-11 18:00] VITALS: BP 140/72; PULSE 108; RESP 8; TEMP 99.9; O2SAT 93
--- NOTE | 2025-08-11 18:45 | CARDIOLOGY REPORT ---
APPROVED REPORT EXAM: Comprehensive 2D, Doppler, and color-flow Echocardiogram. Patient Location: [facility] Blood Pressure: 123/69 mmHg Heart Rate: 104 bpm Rhythm: Sinus Tachycardia with PVCs Indications Cardiomegaly Diabetes E Commerce Developer is Alphonso Munoz MD Previous echo 08/02/22 [facility] 65-70% ; tr MR m TR 2D Dimensions LA Diam 5.6 cm IVSd 1.4 (0.7-1.1cm) LVDd 6.7 cm PWd 1.4 (0.7-1.1cm) IVSs 2.0 (0.8-1.2cm) LVDs 3.8 (2.5-4.0cm) Aortic Root(2D) 4.0 cm PWs 1.9 (0.8-1.2cm) LVOT Diameter 2.56 (1.8-2.4cm) LVEF(%) 72.6 (>50%) Ao Asc Diam. 3.80 cm IVC 23.10 mm FS (%) 42.7 % SV 166.3 ml CO 17.5 L/min M-Mode Dimensions Aortic Cusp Exc 1.88 (1.5-2.0cm) MV EPSS 0.6 (<0.5cm) Aortic Valve AoV Peak Adam. 233.5 cm/s AoV VTI 41.6 cm AO Peak GR. 21.8 mmHg AO Mean GR. 11 mmHg LVOT VTI 32.80 cm LVOT Peak Adam. 155.1 cm/s RACHEL(VTI)/BSA 4.07 cm2/m2 RACHEL (VTI) 4.07 cm2 AV DI 0.79 % Mitral Valve MV E Velocity 123.1 cm/s MV Peak Gr. 11 mmHg MV DECEL TIME 232 ms MV A Velocity 93.0 cm/s MV PHT 64 ms E/A Ratio 1.3 MVA (PHT) 3.44 cm2 MV VMax 166.5 cm/s Tricuspid Valve TR P. Velocity 306 cm/s RAP ESTIMATE 15 mmHg TR Peak Gr. 37 mmHg RVSP 52 mmHg LEFT VENTRICLE LV is moderately dilated with moderate concentric hypertrophy and prominent septal knuckle. Increased LV basal velocity of 3.54 cm/s. Peak / mean LV gradients of 50 / 16 mmHg at rest. Velocity increases to 7.42 mmHg. Peak / mean LV gradients of 220 / 97 mmHg post PVC. Patient unable to perform successful Valsalva. Significant systolic anterior motion (OMAR detected). See loop: 11, 37. Velocity increase throughout due to prominent septal hyperdynamic LV function. Findings consistent with HOCM (hypertrophic obstructive cardiomyopathy). Overall systolic function is hyperdynamic. LVEF is 75%. RIGHT VENTRICLE RV appears mildly dilated with normal contractility. RVSP is estimated at 52 mmHG. ATRIA Left atrium is severely dilated. AORTIC VALVE Trileaflet AV appears sclerotic without stenosis. No insufficiency. MITRAL VALVE MV is thickened with mild annular thickening. OMAR of the mitral apparatus present (Loop 11, 37) with obstruction. TRICUSPID VALVE The tricuspid valve is normal in structure. Trace tricuspid regurgitation. PULMONIC VALVE The pulmonary valve is normal in structure. Trace pulmonic insufficiency. GREAT VESSELS Aortic root is dilated. Ascending aorta measured at 3.8 cm. IVC is dilated and collapses greater than 50% with inspiration. PERICARDIUM There is no pericardial effusion. Other Information Study Quality: Adequate Conclusion LV is moderately dilated with moderate concentric hypertrophy and prominent septal knuckle. Increased LV basal velocity of 3.54 cm/s. Peak / mean LV gradients of 50 / 16 mmHg at rest. Velocity increases to 7.42 mmHg. Peak / mean LV gradients of 220 / 97 mmHg post PVC. Patient unable to perform succ essful Valsalva. Significant systolic anterior motion (OMAR detected). See loop: 11, 37. Velocity increase throughout due to prominent septal hyperdynamic LV function. Findings consistent with HOCM (hypertrophic obstructive cardiomyopathy). Overall systolic function is hyperdynamic. LVEF is 75%. RV appears mildly dilated with normal contractility. RVSP is estimated at 52 mmHG. Left atrium is severely dilated. Trileaflet AV appears sclerotic without stenosis. No insufficiency. MV is thickened with mild annular thickening. OMAR of the mitral apparatus present (Loop 11, 37) with obstruction. The tricuspid valve is normal in structure. Trace tricuspid regurgitation. The pulmonary valve is normal in structure. Trace pulmonic insufficiency. Aortic root is dilated. Ascending aorta measured at 3.8 cm. There is no pericardial effusion.
--- NOTE | 2025-08-11 19:11 | HISTORY AND PHYSICAL-Residence ---
History & Physical Providers to CC Resident Creating Document: DASH CUMMINS RES ~ History of Present Illness Primary Medical Doctor: [facility] Reason for Admit\Complaint: Sepsis, septic shock History of Present Illness This is a 55-year-old male with past medical history of hypertension, type 2 diabetes, heart failure preserved ejection fraction who came to the ER with septicemia and septic shock from a wound on his left plantar surface. According to the patient he had a wound from a trauma which he did not notice due to diabetic neuropathy. When the [facility] worker came for a checkup, he examined the wound and ask the patient to follow up with the primary care. He was on outpatient antibiotic and wound care since the past 3-4 months. He came to the ER yesterday when he developed high fever and generalized weakness. He was found to be in septic shock in the ER and was admitted to the ICU for fluid resuscitation. Once his vitals had normalized he was downgraded to PCU. Currently the patient is maintaining blood pressure, off pressors and fluids, short of breath at rest most likely due to exacerbation of heart failure from fluid resuscitation. He also complains of orthopnea. Allergies: Coded Allergies: No Known Allergies (Unverified , 07/15/24) Home Medications Home Medications Active Eliquis (Apixaban) 5 Mg Tablet 5 Mg PO BID Reported Carvedilol 6.25 Mg Tablet 1 Tab PO BID Lisinopril 20 Mg Tablet 1 Tab PO DAILY 30 Days Lipitor (Atorvastatin Calcium) 80 Mg Tablet 1 Tab PO DAILY 30 Days Vitamin D3 (Cholecalciferol (Vitamin D3)) 50 Mcg (2000 Unit) Tablet 100 Mcg PO DAILY 30 Days Lexapro (Escitalopram Oxalate) 10 Mg Tablet 1 Tab PO DAILY 30 Days Ozempic (Semaglutide) 2 Mg/0.75 Ml (8 Mg/3 Ml) Pen.injctr 0.2 Mg SUBCUT Q7D 30 Days Norvasc* (Amlodipine Besylate) 2.5 Mg Tablet 10 Tab PO DAILY 30 Days Aspirin EC (Aspirin) 81 Mg Tablet.dr 1 Tab PO DAILY Furosemide 20 Mg Tablet 1 Tab PO DAILY Humulin 70/30 Kwikpen (Hum Insulin NPH/Reg Insulin Hm) 100 Unit/1 Ml Insuln.pen 0 SQ BID 40 units before breakfast and 42 units before dinner Neurontin (Gabapentin) 300 Mg Capsule 1 Cap PO TID Past Medical History Past Medical History Hypertension Type 2 diabetes Diabetic neuropathy Congestive heart failure with preserved ejection fraction Family History Family History: Family history was reviewed; no changes noted. Past Social History Alcohol Use: None Drug Use: None Lives with: Other (Roommate) Lives In: Home Domestic Violence: Neg ROS Constitutional: Reports: diaphoresis, fever Eyes: Reports: no symptoms reported ENT: Reports: no symptoms reported Respiratory: Reports: SOB with exertion, SOB at rest Cardiovascular: Reports: no symptoms reported Gastrointestinal: Reports: no symptoms reported Genitourinary: Reports: no symptoms reported Male Genitalia: Reports: no symptoms reported Neurological: Reports: no symptoms reported Musculoskeletal: Reports: no symptoms reported Integumentary: Reports: no symptoms reported, wound(s) Allergic/Immunologic: Reports: no symptoms reported Hematologic/Lymphatic: Reports: no symptoms reported Endocrine: Reports: no symptoms reported Psychiatric: Reports: no symptoms reported Exam Vitals: Vital Signs Date Time Temp Pulse Resp B/P (MAP) Pulse Ox O2 Delivery O2 Flow Rate FiO2 08/11/25 08:00 18 98 Room Air 08/11/25 06:00 97.8 96 121/54 (76) 08/10/25 20:51 0 08/10/25 14:37 N/A General: General: Obese, Well alert, well oriented, not confused, not agitated, not in acute distress, well cooperated during the physical. HEENT: Conjunctive are pink, sclerae clear, no icterus, pupil is equal in both sides, reactive to light, no ear discharge, no pharyngeal erythema or an edema. Neck: Supple, no JVD, no lymphadenopathy and thyromegaly. Chest: Equal air entry on both lungs, bilateral fine Creps in lower lobes Cardiovascular: S1-S2 regular sinus rhythm and, regular rate, no gallops, no rubs, no murmurs Abdomen: No visible peristalsis, Bowel sounds present on auscultation, soft, nontender, no guarding, no rigidity Extremities: Localized region of temperature in the left leg. Wound noticed on left plantar surface 1 x1 cm, 2+ pitting edema bilaterally, capillary refill intact, peripheral pulsations are intact on both sides Central Nervous System: No focal neurological deficits, no motor or sensory weakness in all 4 extremities, could move all 4 extremities, 2+ deep tendon reflexes, negative Babinski. Musculoskeletal: No joint swelling, deformities, inflammations, and no scoliosis and back tenderness Skin: Warm and dry. Diagnostic Data Last Recorded Lab Results: 08/11/25 1027 08/11/25 0450 Counseling Services Smoking & Tobacco Cessation: 3-10 Minutes Advance Care Planning Advanced Care planning: N/A Additional Plan Assessment: This is a 55-year-old male with history of diabetes and diabetic nephropathy who came in with sepsis and septic shock from of wound in left foot, restricted in the ICU, downgraded to PCU once his blood pressure stabilized. Plan: Sepsis, septic shock Left foot wound Currently the patient does not meet sepsis criteria Vitals: Blood pressure soft 100/60, pulse 80s, respiratory rate 25 One fever spike of 102 in the past 24 hour WBC 10.5, raised inflammatory markers Lactic acid normalized to 1.2 Lower extremity MRI ruled out osteomyelitis Plan: Patient on Zosyn 4.5 IV q.4h linezolid 600 mg p.o. b.i.d. Fluid resuscitation Ringer's lactate at 150 mL/hour Wound culture sent, continue wound care Hypertension , hyperlipidemia Acute exacerbation of CHF with preserved ejection fraction of 75% NYHA class 4 -Serial troponin negative, NT proBNP 10318 Most likely due to fluid resuscitation from septic shock -Blood pressure still on the soft side, to diurese when the blood pressure stabilize -Chest x-ray shows pulmonary vascular congestion -Echocardiogram shows moderately dilated left ventricle with concentric hypertrophy and prominent septal knuckle with hyperdynamic ejection fraction of 75% Significant some detected, findings consistent with HOCM, most likely due to dehydration RVSP at 52, left atrium severely dilated, serum of mitral apparatus present with obstruction. Plan: Hold all antihypertensive medication until BP stabilizes Continue home medication aspirin 81 mg p.o. daily, apixaban 5 mg p.o. b.i.d., atorvastatin 80 mg p.o. daily. Ordered lipid level and urinalysis Type 2 diabetes with diabetic nephropathy Hemoglobin A1c 6.9 Patient on low-dose insulin protocol with insulin glargine 20 Continue gabapentin 100 mg p.o. b.i.d. Code status: Full code DVT prophylaxis: Eliquis 5 mg p.o. b.i.d. Analgesia/sedation: Morphine/[place] Line/tube: PIV GI prophylaxis: None Nutrition: Heart healthy PT: Ordered. Prognosis: Guarded Disposition: Continue medical management in PCU Dash Cummins MD PGY1, Internal Medicine [facility] Addendum esr 110, needs ortho eval jocelyn 2 to sepsis Date of Service: Aug 11, 2025 Billing Provider: JUAN ADAMS MD Common Visit Codes: [id number] INP/OBS CARE (HIGH) DASH CUMMINS, RES Aug 11, 2025 19:11 JUAN ADAMS MD Aug 11, 2025 22:50
[2025-08-11 20:00] VITALS: RESP 8; O2SAT 93
[2025-08-12] VITALS (7 sets, daily range): BP systolic 146–160; BP diastolic 44–74; PULSE 100–115; RESP 17–30; TEMP 98.1–101.8; O2SAT 91–98
[2025-08-12 06:47] LABS: CREATININE 2.51 MG/DL (0.60-1.10); PHOSPHORUS 2.4 MG/DL (2.3-4.5); TOTAL CARBON DIOXIDE 21.6 MMOL/L (24-32); eCRCL 39 ML/MIN; eGFR 27 ML/MIN
[2025-08-12] MEDS: aspirin 81mg, enteric-coated 1 TAB TABLET.DR PO SCH (08:21)
--- NOTE | 2025-08-12 19:35 | PROGRESS NOTE- Residence ---
Progress Note - Resident Providers to CC Resident Creating Document: DASH WEI RES ~ Central Line/PICC still needed: N\A Rodriguez-Non Protocol Rodriguez Indications Met/Not Met: F/C Indications Not Met Antibiotic Timeout Antibiotic Ordered?: Yes Objective Vital Signs Date Time Temp Pulse Resp B/P (MAP) Pulse Ox O2 Delivery O2 Flow Rate FiO2 08/12/25 15:00 98.3 115 30 152/74 (100) 92 Room Air 08/10/25 20:51 0 08/10/25 14:37 N/A Result Diagram: 08/11/25 1027 08/12/25 0606 General: Obese, Well alert, well oriented, not confused, not agitated, not in acute distress, well cooperated during the physical. HEENT: Conjunctive are pink, sclerae clear, no icterus, pupil is equal in both sides, reactive to light, no ear discharge, no pharyngeal erythema or an edema. Neck: Supple, no JVD, no lymphadenopathy and thyromegaly. Chest: Equal air entry on both lungs, bilateral fine Creps in lower lobes Cardiovascular: S1-S2 regular sinus rhythm and, regular rate, no gallops, no rubs, no murmurs Abdomen: No visible peristalsis, Bowel sounds present on auscultation, soft, nontender, no guarding, no rigidity Extremities: Localized region of temperature in the left leg. Wound noticed on left plantar surface 1 x1 cm, 2+ pitting edema bilaterally, capillary refill intact, peripheral pulsations are intact on both sides Central Nervous System: No focal neurological deficits, no motor or sensory weakness in all 4 extremities, could move all 4 extremities, 2+ deep tendon reflexes, negative Babinski. Musculoskeletal: No joint swelling, deformities, inflammations, and no scoliosis and back tenderness Skin: Warm and dry. Assessment Assessment This is a 55-year-old male with history of diabetes and diabetic nephropathy who came in with sepsis and septic shock from of wound in left foot, restricted in the ICU, downgraded to PCU once his blood pressure stabilized. Plan Plan Sepsis, septic shock Left foot wound Currently the patient does not meet sepsis criteria Vitals: Blood pressure soft 100/60, pulse 80s, respiratory rate 25 One fever spike of 102 in the past 24 hour WBC 10.5, raised inflammatory markers Lactic acid normalized to 1.2 Lower extremity MRI ruled out osteomyelitis Plan: Patient on Zosyn 4.5 IV q.4h linezolid 600 mg p.o. b.i.d. Fluid resuscitation Ringer's lactate at 150 mL/hour Wound culture sent, continue wound care 08/12/2025: Blood culture came back positive for Staphylococcus aureus Patient already on linezolid 600 mg p.o. b.i.d. MRI shows phlegmon, Dr. Perez fire prevention inspector consulted if incision and drainage needs to be done Fluid resuscitation stopped. Hypertension , hyperlipidemia Acute exacerbation of CHF with preserved ejection fraction of 75% NYHA class 4 -Serial troponin negative, NT proBNP 51710 Most likely due to fluid resuscitation from septic shock -Blood pressure still on the soft side, to diurese when the blood pressure stabilize -Chest x-ray shows pulmonary vascular congestion -Echocardiogram shows moderately dilated left ventricle with concentric hypertrophy and prominent septal knuckle with hyperdynamic ejection fraction of 75% Significant some detected, findings consistent with HOCM, most likely due to dehydration RVSP at 52, left atrium severely dilated, serum of mitral apparatus present with obstruction. Plan: Hold all antihypertensive medication until BP stabilizes Lasix 20 mg IV b.i.d. strict input and output monitoring Continue home medication aspirin 81 mg p.o. daily, apixaban 5 mg p.o. b.i.d., atorvastatin 80 mg p.o. daily. Ordered lipid level and urinalysis Type 2 diabetes with diabetic nephropathy Hemoglobin A1c 6.9 Patient on low-dose insulin protocol with insulin glargine 20 Continue gabapentin 100 mg p.o. b.i.d. Code status: Full code DVT prophylaxis: Eliquis 5 mg p.o. b.i.d. Analgesia/sedation: Morphine/[place] Line/tube: PIV GI prophylaxis: None Nutrition: Heart healthy PT: Ordered. Prognosis: Guarded Disposition: Continue medical management in PCU Dash Wei MD PGY1, Internal Medicine [facility] Date of Service: Aug 12, 2025 Billing Provider: JUAN ADAMS MD Common Visit Codes: [id number] INP/OBS CARE(HIGH) DASH WEI, RES Aug 12, 2025 19:35 JUAN ADAMS MD Aug 13, 2025 06:52
[2025-08-12 20:34] LABS: CHOL/HDL RATIO 4.3 (0.00-4.99); LDL CHOLESTEROL 46 MG/DL (50-100)
[2025-08-12 23:21] LABS: LEUKOCYTE ESTERASE ,URINE NEGATIVE (Neg); NITRITES, URINE NEGATIVE (Neg); OCCULT BLOOD,URINE MODERATE (Neg)
[2025-08-12 23:27] LABS: UA COLLECTION TYPE NON-SPECIFIED
[2025-08-12 23:35] LABS: AMORPHOUS URATES 1+; MUCUS STRANDS NONE SEEN /LPF (Neg); SQUAMOUS EPITHELIAL CELL,UR FEW /LPF (FEW)
[2025-08-13] VITALS (14 sets, daily range): BP systolic 117–138; BP diastolic 63–69; PULSE 86–97; RESP 18–24; TEMP 97.9–98.4; O2SAT 93–98
[2025-08-13] MEDS ORDERED: DEXTROSE 15 GM of carb/4 tabs (each vial/BOTTLE has 4 tablets) PO PRN ×2 (00:20)
[2025-08-13] MEDS ORDERED: dextrose 50%-water 50ml dispensing syringe IV PRN ×2 (00:20)
[2025-08-13] MEDS ORDERED: glucagon, human recombinant 1mg kit SUBCUT PRN (00:20)
[2025-08-13 06:15] LABS: CREATININE 2.20 MG/DL (0.60-1.10); PHOSPHORUS 2.9 MG/DL (2.3-4.5); TOTAL CARBON DIOXIDE 26.0 MMOL/L (24-32); eCRCL 45 ML/MIN; eGFR 31 ML/MIN
[2025-08-13] MEDS: ipratropium/albuterol 3ml nebule NEB SCH (07:00)
[2025-08-13] MEDS: INSULIN LISPRO 100 UNIT/ML INSULN.PEN MULTI-DOSE SQ SCH (07:27)
[2025-08-13] MEDS: ESCITALOPRAM 10 mg tablet 10 MG TABLET PO SCH (07:44)
[2025-08-13] MEDS: carvedilol 6.25mg tablet PO SCH (07:44)
[2025-08-13] MEDS: JUVEN Smoothie Arginine/Glut./Ca2+Bmb (Juven 19.3pkt) 240ml cup PO SCH (08:00)
--- NOTE | 2025-08-13 11:33 | CONSULTATION REPORT ---
History of Present Illness Providers to CC ~ Reason for Admit\Admit Dx: Sepsis, septic shock Refering MD: ALLAN History of Present Illness pt with chronic wound sub 1st met head left foot with surrounding cellulitis Allergies: Coded Allergies: No Known Allergies (Unverified , 07/15/24) Home Medications Home Medications Active Eliquis (Apixaban) 5 Mg Tablet 5 Mg PO BID Reported Carvedilol 6.25 Mg Tablet 1 Tab PO BID Lisinopril 20 Mg Tablet 1 Tab PO DAILY 30 Days Lipitor (Atorvastatin Calcium) 80 Mg Tablet 1 Tab PO DAILY 30 Days Vitamin D3 (Cholecalciferol (Vitamin D3)) 50 Mcg (2000 Unit) Tablet 100 Mcg PO DAILY 30 Days Lexapro (Escitalopram Oxalate) 10 Mg Tablet 1 Tab PO DAILY 30 Days Ozempic (Semaglutide) 2 Mg/0.75 Ml (8 Mg/3 Ml) Pen.injctr 0.2 Mg SUBCUT Q7D 30 Days Norvasc* (Amlodipine Besylate) 2.5 Mg Tablet 10 Tab PO DAILY 30 Days Aspirin EC (Aspirin) 81 Mg Tablet.dr 1 Tab PO DAILY Furosemide 20 Mg Tablet 1 Tab PO DAILY Humulin 70/30 Kwikpen (Hum Insulin NPH/Reg Insulin Hm) 100 Unit/1 Ml Insuln.pen 0 SQ BID 40 units before breakfast and 42 units before dinner Neurontin (Gabapentin) 300 Mg Capsule 1 Cap PO TID Physical Exam Last Vital Signs Recorded: Temperature: 98.0, Source: Oral, Heart Rate: 89, Respiratory Rate: 24, BP: 137/64, Pulse Oximetry: 93, Weight: 122.730 Physical Exam gen: pt is NAD vasc: edema to LLe and pedal pulses faintly palpable derm: wound sub 1st met head with surrounding edema, erythema and bullous changes, wound does not probe to bone neuro: sensation decreased to ian LLE msk: no gross msk deformities noted General Appearance: alert, no apparent distress EENT: PERRL/EOMI Neck: full range of motion Respiratory: lungs clear Cardiovascular: normal peripheral pulses Peripheral Pulses: 1+ carotid (R), 1+ carotid (L), 1+ radial (R), 1+ radial (L), 1+ femoral (R), 1+ femoral (L), 1+ dorsalis pedis (R), 1+ dorsalis pedis (L), 1+ posterior tib (R), 1+ posterior tib (L), 1+ other Gastrointestinal: bowels sounds present Extremities: no edema Neurologic: oriented x4 Results Diagram Lab Result Diagram: 08/11/25 1027 08/13/25 0531 Assessment/Plan Additional Plan pt seen and evaluated imaging reviewed continue abx per medical team will order arterial us and decide treatment plan after that continue wound care BRENNEN NAJERA DPM Aug 13, 2025 11:33
--- NOTE | 2025-08-13 16:51 | PROGRESS NOTE- Residence ---
Progress Note - Resident Providers to CC Resident Creating Document: DASH WEI RES ~ Central Line/PICC still needed: N\A Rodriguez-Non Protocol Rodriguez Indications Met/Not Met: F/C Indications Not Met Antibiotic Timeout Antibiotic Ordered?: Yes Objective Vital Signs Date Time Temp Pulse Resp B/P (MAP) Pulse Ox O2 Delivery O2 Flow Rate FiO2 08/13/25 15:22 87 20 Room Air 0.0 08/13/25 15:13 94 21 08/13/25 11:52 98.1 117/63 (81) Result Diagram: 08/11/25 1027 08/13/25 0531 General: Obese, Well alert, well oriented, not confused, not agitated, not in acute distress, well cooperated during the physical. HEENT: Conjunctive are pink, sclerae clear, no icterus, pupil is equal in both sides, reactive to light, no ear discharge, no pharyngeal erythema or an edema. Neck: Supple, no JVD, no lymphadenopathy and thyromegaly. Chest: Equal air entry on both lungs, bilateral fine Creps in lower lobes Cardiovascular: S1-S2 regular sinus rhythm and, regular rate, no gallops, no rubs, no murmurs Abdomen: No visible peristalsis, Bowel sounds present on auscultation, soft, nontender, no guarding, no rigidity Extremities: Localized region of temperature in the left leg. Wound noticed on left plantar surface 1 x1 cm, 2+ pitting edema bilaterally, capillary refill intact, peripheral pulsations are intact on both sides Central Nervous System: No focal neurological deficits, no motor or sensory weakness in all 4 extremities, could move all 4 extremities, 2+ deep tendon reflexes, negative Babinski. Musculoskeletal: No joint swelling, deformities, inflammations, and no scoliosis and back tenderness Skin: Warm and dry. Assessment Assessment This is a 55-year-old male with history of diabetes and diabetic nephropathy who came in with sepsis and septic shock from of wound in left foot, restricted in the ICU, downgraded to ortho after his blood pressure stabilized. Plan Plan Sepsis, septic shock. MRSA bacteremia Left foot wound Currently the patient does not meet sepsis criteria Vitals: Blood pressure soft 100/60, pulse 80s, respiratory rate 25 One fever spike of 102 in the past 24 hour WBC 10.5, raised inflammatory markers Lactic acid normalized to 1.2 Lower extremity MRI ruled out osteomyelitis Plan: Patient on Zosyn 4.5 IV q.4h linezolid 600 mg p.o. b.i.d. Fluid resuscitation Ringer's lactate at 150 mL/hour Wound culture sent, continue wound care 08/12/2025: Blood culture came back positive for Staphylococcus aureus Patient already on linezolid 600 mg p.o. b.i.d. MRI shows phlegmon, Dr. Perez forger helper consulted if incision and drainage needs to be done Fluid resuscitation stopped. 08/13/2025: Continue linezolid 600 mg p.o. b.i.d. and Zosyn 4.[address] Morataya started for segment and a possible incision and drainage Hypertension , hyperlipidemia Acute exacerbation of CHF with preserved ejection fraction of 75% NYHA class 4 -Serial troponin negative, NT proBNP 91726 Most likely due to fluid resuscitation from septic shock -Blood pressure still on the soft side, to diurese when the blood pressure stabilize -Chest x-ray shows pulmonary vascular congestion -Echocardiogram shows moderately dilated left ventricle with concentric hypertrophy and prominent septal knuckle with hyperdynamic ejection fraction of 75% Significant some detected, findings consistent with HOCM, most likely due to dehydration RVSP at 52, left atrium severely dilated, serum of mitral apparatus present with obstruction. Plan: Requiring 2-3 L oxygen via nasal cannula, but shortness of breath getting better Hold all antihypertensive medication until BP stabilizes Lasix 20 mg IV b.i.d. strict input and output monitoring Output of 950 mL in 24 hours Continue home medication aspirin 81 mg p.o. daily, apixaban 5 mg p.o. b.i.d., atorvastatin 80 mg p.o. daily. Type 2 diabetes with diabetic nephropathy Hemoglobin A1c 6.9 Patient on low-dose insulin protocol with insulin glargine 20 Continue gabapentin 100 mg p.o. b.i.d. Code status: Full code DVT prophylaxis: Eliquis 5 mg p.o. b.i.d. Analgesia/sedation: Morphine/[place] Line/tube: PIV GI prophylaxis: None Nutrition: Heart healthy PT: Ordered. Prognosis: Guarded Disposition: Continue medical management in U Dash Wei MD PGY1, Internal Medicine [facility] Date of Service: Aug 13, 2025 Billing Provider: JUAN ADAMS MD Common Visit Codes: [id number] INP/OBS CARE(HIGH) DASH WEI, RES Aug 13, 2025 16:51 JUAN ADAMS MD Aug 14, 2025 07:18
--- NOTE | 2025-08-13 19:25 | VASCULAR REPORT ---
Left Lower Extremity Arterial Duplex Date: 08/13/2025 05:38 PM Clinical History: Left foot ulcer Comparison: MR MRI LOWER EXTREMITY LEFT on DOS: 08/11/25, VASC VL DEBRA on DOS: 06/25/25, VASC VL ARTERIAL on DOS: 06/25/25, VASC VL VENOUS on DOS: 06/25/25 Findings: Duplex Doppler evaluation including color Doppler and spectral/pulsed waveform analysis of the lower extremity arteries was performed. Triphasic waveforms within the left common femoral artery, profunda femoris artery, superficial femoral artery, popliteal artery, posterior tibial artery, peroneal artery, anterior tibial artery, and dorsalis pedis artery. Mild hyperemic waveforms noted. Minimal scattered plaque. REFERENCE VALUES, [facility] ([facility]) vascular Imaging Lab Criteria: Peak systolic velocity ranges (in cm/sec) are as follows: <150 cm/s - <20 % stenosis 150-200 cm/s - 20-49% stenosis 200-300 cm/s - 50-75% stenosis >300 cm/s -> 75% stenosis IMPRESSION: No hemodynamically significant stenoses in the left lower extremity. Mild hyperemic flow, likely in the setting of known wound.
[2025-08-14] VITALS (18 sets, daily range): BP systolic 127–146; BP diastolic 65–75; PULSE 68–91; RESP 16–20; TEMP 95.1–98.6; O2SAT 91–98
--- NOTE | 2025-08-14 05:30 | CARDIOLOGY REPORT ---
APPROVED REPORT EXAM: Limited 2D, Doppler, and color-flow Echocardiogram. Patient Location: [facility] Blood Pressure: 138/64 mmHg Heart Rate: 88 bpm Indications Rule Out Endocarditis - only POINT OF CARE TECHNICIAN: Alphonso Munoz MD Previous ECHO: 08/11/25, [facility], EF: 75, OMAR, sev LAE Tricuspid Valve TR P. Velocity 221 cm/s RAP ESTIMATE 10 mmHg TR Peak Gr. 20 mmHg RVSP 30 mmHg LEFT VENTRICLE Left ventricle appears dilated with concentric hypertrophy. Overall systolic function is hyperdynamic. LVEF is 75%. AORTIC VALVE No vegetation see. AV not fully evaluated due to limited exam. MITRAL VALVE No vegetation see. Redundant chordae noted with anterior leaflet, (seen in image #4). MV not fully evaluated due to limited exam. TRICUSPID VALVE No vegetation see. TV not fully evaluated due to limited exam. PULMONIC VALVE No vegetation see. PV not fully evaluated due to limited exam. PERICARDIUM Normal pericardium. No effusion. Conclusion Left ventricle appears dilated with concentric hypertrophy. Overall systolic function is hyperdynamic. LVEF is 75%. No vegetation see. AV not fully evaluated due to limited exam. No vegetation see. Redundant chordae noted with anterior leaflet, (seen in image #4). MV not fully evaluated due to limited exam. No vegetation see. TV not fully evaluated due to limited exam. No vegetation see. PV not fully evaluated due to limited exam. Normal pericardium. No effusion.
[2025-08-14 07:45] LABS: CREATININE 2.12 MG/DL (0.60-1.10); PHOSPHORUS 3.7 MG/DL (2.3-4.5); TOTAL CARBON DIOXIDE 27.6 MMOL/L (24-32); eCRCL 47 ML/MIN; eGFR 32 ML/MIN
--- NOTE | 2025-08-14 17:50 | PROGRESS NOTE- Residence ---
Progress Note - Resident Providers to CC Resident Creating Document: REBECA HUNT RES ~ Antibiotic Timeout Antibiotic Ordered?: Yes Subjective Patient was seen at bedside. Patient reports improvement in his shortness of breath. Patient underwent I and D with Dr. Morataya today afternoon. Objective Vital Signs Date Time Temp Pulse Resp B/P (MAP) Pulse Ox O2 Delivery O2 Flow Rate FiO2 08/14/25 16:22 85 18 Room Air 0.0 08/14/25 16:17 91 21 08/14/25 10:00 98.6 127/65 (85) Result Diagram: 08/11/25 1027 08/14/25 0657 General: Obese, Well alert, well oriented, not confused, not agitated, not in acute distress, well cooperated during the physical. HEENT: Conjunctive are pink, sclerae clear, no icterus, pupil is equal in both sides, reactive to light, no ear discharge, no pharyngeal erythema or an edema. Neck: Supple, no JVD, no lymphadenopathy and thyromegaly. Chest: Equal air entry on both lungs, bilateral fine Creps in lower lobes Cardiovascular: S1-S2 regular sinus rhythm and, regular rate, no gallops, no rubs, no murmurs Abdomen: No visible peristalsis, Bowel sounds present on auscultation, soft, nontender, no guarding, no rigidity vasc: edema to LLe and pedal pulses faintly palpable derm: wound sub 1st met head with surrounding edema, erythema and bullous changes, wound does not probe to bone neuro: sensation decreased to ian LLE msk: no gross msk deformities noted Skin: Warm and dry. Assessment Assessment This is a 55-year-old male with history of diabetes and diabetic nephropathy who came in with sepsis and septic shock from of wound in left foot, restricted in the ICU, downgraded to ortho after his blood pressure stabilized. Plan Plan Sepsis, septic shock. MRSA bacteremia Left foot infected wound s/p I & D by Dr. Morataya on 08/14/25 Currently the patient does not meet sepsis criteria Vitals: Blood pressure soft 100/60, pulse 80s, respiratory rate 25 One fever spike of 102 in the past 24 hour WBC 10.5, raised inflammatory markers Lactic acid normalized to 1.2 Lower extremity MRI ruled out osteomyelitis Plan: Patient on Zosyn 4.5 IV q.4h linezolid 600 mg p.o. b.i.d. Fluid resuscitation Ringer's lactate at 150 mL/hour Wound culture sent, continue wound care 08/12/2025: Blood culture came back positive for Staphylococcus aureus Patient already on linezolid 600 mg p.o. b.i.d. MRI shows phlegmon, Dr. Perez seedling puller consulted if incision and drainage needs to be done Fluid resuscitation stopped. 08/13/2025: Continue linezolid 600 mg p.o. b.i.d. and Zosyn 4.[address] Morataya started for segment and a possible incision and drainage 08/14/25: Arterial ultrasound showed no stenosis Continue linezolid 600 mg p.o. b.i.d. and Zosyn 4.5 IV q.4h Patient underwent I&D on bedside by Dr. Morataya today Dr. Morataya will assess the patient tomorrow morning and decide if patient needs surgical intervention or not NPO after midnight Hypertension , hyperlipidemia Acute exacerbation of CHF with preserved ejection fraction of 75% NYHA class 4 -Serial troponin negative, NT proBNP 34482 Most likely due to fluid resuscitation from septic shock -Blood pressure still on the soft side, to diurese when the blood pressure stabilize -Chest x-ray shows pulmonary vascular congestion -Echocardiogram shows moderately dilated left ventricle with concentric hypertrophy and prominent septal knuckle with hyperdynamic ejection fraction of 75% Significant some detected, findings consistent with HOCM, most likely due to dehydration RVSP at 52, left atrium severely dilated, serum of mitral apparatus present with obstruction. Plan: Requiring 2-3 L oxygen via nasal cannula, but shortness of breath getting better Hold all antihypertensive medication until BP stabilizes Lasix 20 mg IV b.i.d. strict input and output monitoring Output of 950 mL in 24 hours Continue home medication aspirin 81 mg p.o. daily, apixaban 5 mg p.o. b.i.d., atorvastatin 80 mg p.o. daily. 08/14/25: Patient oxygen saturation is 92% on room air Blood pressure is 127/65 Hold all antihypertensive medication until BP stabilizes Negative fluid balance of 500 mL Continue IV Lasix 20 mg Continue home medication aspirin 81 mg p.o. daily, apixaban 5 mg p.o. b.i.d., atorvastatin 80 mg p.o. daily. Type 2 diabetes with diabetic nephropathy Hemoglobin A1c 6.9 Patient on low-dose insulin protocol with insulin glargine 20 Continue gabapentin 100 mg p.o. b.i.d. ALEKSANDAR on CKD stage 3b, likely prerenal Creatinine is trending down Monitor BMP levels Code status: Full code DVT prophylaxis: Eliquis 5 mg p.o. b.i.d. Analgesia/sedation: Morphine/[place] Line/tube: PIV GI prophylaxis: None Nutrition: Heart healthy PT: Pending Prognosis: Guarded Disposition: Continue medical management & follow up with seedling puller tomorrow Resident attestation The above note has been reviewed and supervised by a senior resident PGY3 Patient was seen, examined and discussed with the attending physician Ros Hunt MD Internal Medicine Resident, PGY 1 Date of Service: Aug 14, 2025 Billing Provider: JUAN ADAMS MD Common Visit Codes: [id number] INP/OBS CARE(HIGH) REBECA HUNT, RES Aug 14, 2025 17:50 JUAN ADAMS MD Aug 15, 2025 07:45
[2025-08-15] VITALS (32 sets, daily range): BP systolic 92–143; BP diastolic 52–68; PULSE 69–103; RESP 12–23; TEMP 97.5–98; O2SAT 91–98
[2025-08-15 06:14] LABS: CREATININE 2.01 MG/DL (0.60-1.10); PHOSPHORUS 3.5 MG/DL (2.3-4.5); TOTAL CARBON DIOXIDE 28.6 MMOL/L (24-32); eCRCL 49 ML/MIN; eGFR 35 ML/MIN
[2025-08-15] MEDS ORDERED: bacitracin 15gm ointment TP ONE (07:31)
[2025-08-15] MEDS ORDERED: vancomycin 1,000mg inj ONE (07:31)
[2025-08-15] MEDS ORDERED: LIDOcaine 1% (10mg/ml)w/preservative inj. 20ml MDV ONE (07:31)
[2025-08-15] MEDS ORDERED: BUPIVAcaine 2.5mg/ml inj 50ml vial (contains preservative) ONE (07:31)
[2025-08-15] MEDS ORDERED: hydrALAZINE 20mg/ml inj. IV PRN (07:45)
[2025-08-15] MEDS ORDERED: fentaNYL/PF 50MCG/1 ML 2ML syringe IV PRN ×2 (07:45)
[2025-08-15] MEDS ORDERED: ondansetron/PF 4mg/2ml inj IV PRN (07:45)
[2025-08-15] MEDS ORDERED: morphine 4 MG/ML inj SYRINge IV PRN ×2 (07:45)
[2025-08-15] MEDS ORDERED: labetalol 20mg/4ml (5mg/ml) syringe IV PRN (07:45)
[2025-08-15 08:09] LABS: MEAN PLATELET VOLUME 8.2 FL (7.4-10.4); RED CELL DISTRIBUTION WIDTH 13.8 % (11.5-14.5)
[2025-08-15] MEDS: ringers solution, lacted 1,000 ML IV SCH (08:28)
[2025-08-15] MEDS ORDERED: fentaNYL/PF 50MCG/1 ML 2ML syringe ONE ×2 (09:12→09:52)
[2025-08-15] MEDS ORDERED: ondansetron/PF 4mg/2ml inj ONE (09:39)
[2025-08-15] MEDS ORDERED: acetaminophen 1,000mg/100ml IV 100 ML IV ONE (09:39)
[2025-08-15] MEDS ORDERED: propofol inj 20 ML IV ONE (09:39)
[2025-08-15] MEDS ORDERED: phenylephrine 10mg/ml inj. ONE (09:45)
[2025-08-15] MEDS ORDERED: PCA WASTE DOCUMENTATION 1 MG ML MC SCH (10:15)
--- NOTE | 2025-08-15 10:16 | PROGRESS NOTE ---
Progress Progress Note: S/P I&D of left foot large abscess present woujd care orders placed continue abx per medicine recs may need further surgical intervention for further I&D and/or VAC placement Results/Orders Result Diagram: 08/15/25 0504 08/15/25 0504 Dietary Evaluation Recommendations by RD: Other - see comments Comments: III 08/17 <7+[id number] Reassessment: Pt overall has been eating well, documented with 100% PO intake of most meals though with 0-25% PO intake of five meals. Despite documentation indicating pt with 0% PO intake of breakfast RD observed tray ticket documenting pt with 100% PO intake of milk, pears, and yogurt. Fortunately meal intake back up to 100% at lunch today. Pt initially refusing Vikram ONS though up to 100% at lunch today. No changes to nutrition interventions at this time d/t improved PO intake. LBM 08/11 x2 per I&O, currently not receiving routine bowel care though with PRN bowel care available. D/w dietary to send power pudding with next meal to assist with a BM. Will continue to follow closely and monitor need for further nutrition intervention. Recommendations: 1. Continue SB6 75 g CHO controlled diet; double meat BIDLD for satiety 2. Vikram smoothie BIDBD for wound healing; monitor PO trends for adjustment needs 3. Implement routine bowel care; utilize PRN bowel care 4. Weekly scaled wts Expected Outcomes/Goals: maintain stable wt, meet at least 75% of estimated nutrient needs, ONS acceptance, bowel regularity, wound healing, BG 80-180 mg/dl BRENNEN NAJERA DPCarrie Aug 15, 2025 10:16
--- NOTE | 2025-08-15 16:27 | PROGRESS NOTE- Residence ---
Progress Note - Resident Providers to CC Resident Creating Document: REBECA HUNT RES ~ Antibiotic Timeout Antibiotic Ordered?: Yes Subjective Patient was seen at bedside. Patient reports improvement in his shortness of breath. Patient underwent I and D with Dr. Morataya today afternoon. Objective Vital Signs Date Time Temp Pulse Resp B/P (MAP) Pulse Ox O2 Delivery O2 Flow Rate FiO2 08/15/25 15:00 97.9 72 16 102/54 (70) 93 Room Air 08/15/25 14:00 2.0 08/15/25 12:44 28 Result Diagram: 08/15/25 0504 08/15/25 0504 General: Obese, Well alert, well oriented, not confused, not agitated, not in acute distress, well cooperated during the physical. HEENT: Conjunctive are pink, sclerae clear, no icterus, pupil is equal in both sides, reactive to light, no ear discharge, no pharyngeal erythema or an edema. Neck: Supple, no JVD, no lymphadenopathy and thyromegaly. Chest: Equal air entry on both lungs, bilateral fine Creps in lower lobes Cardiovascular: S1-S2 regular sinus rhythm and, regular rate, no gallops, no rubs, no murmurs Abdomen: No visible peristalsis, Bowel sounds present on auscultation, soft, nontender, no guarding, no rigidity vasc: edema to LLe and pedal pulses faintly palpable derm: wound sub 1st met head with surrounding edema, erythema and bullous changes, wound does not probe to bone neuro: sensation decreased to ian LLE msk: no gross msk deformities noted Skin: Warm and dry. Assessment Assessment This is a 55-year-old male with history of diabetes and diabetic nephropathy who came in with sepsis and septic shock from of wound in left foot, restricted in the ICU, downgraded to ortho after his blood pressure stabilized. Plan Plan Sepsis, septic shock. MRSA bacteremia Left foot abscess s/p I & D by Dr. Morataya on 08/14/25 and 08/15/25 Currently the patient does not meet sepsis criteria Vitals: Blood pressure soft 100/60, pulse 80s, respiratory rate 25 One fever spike of 102 in the past 24 hour WBC 10.5, raised inflammatory markers Lactic acid normalized to 1.2 Lower extremity MRI ruled out osteomyelitis Plan: Patient on Zosyn 4.5 IV q.4h linezolid 600 mg p.o. b.i.d. Fluid resuscitation Ringer's lactate at 150 mL/hour Wound culture sent, continue wound care 08/12/2025: Blood culture came back positive for Staphylococcus aureus Patient already on linezolid 600 mg p.o. b.i.d. MRI shows phlegmon, Dr. Perez electrician research consulted if incision and drainage needs to be done Fluid resuscitation stopped. 08/13/2025: Continue linezolid 600 mg p.o. b.i.d. and Zosyn 4.[address] Morataya started for segment and a possible incision and drainage 08/14/25: Arterial ultrasound showed no stenosis Continue linezolid 600 mg p.o. b.i.d. and Zosyn 4.5 IV q.4h Patient underwent I&D on bedside by Dr. Morataya today Dr. Morataya will assess the patient tomorrow morning and decide if patient needs surgical intervention or not NPO after midnight 08/15/25: Patient underwent I and D on left foot, today. Patient tolerated the procedure well ESR is 121 Continue linezolid 600 mg p.o. b.i.d. and Zosyn 4.5 IV q.4h We will consult ID regarding course of antibiotics Acute exacerbation of CHF with preserved ejection fraction of 75% NYHA class 4 Hypertrophic obstructive cardiomyopathy -Serial troponin negative, NT proBNP 90774 Most likely due to fluid resuscitation from septic shock -Blood pressure still on the soft side, to diurese when the blood pressure stabilize -Chest x-ray shows pulmonary vascular congestion -Echocardiogram shows moderately dilated left ventricle with concentric hypertrophy and prominent septal knuckle with hyperdynamic ejection fraction of 75% Significant some detected, findings consistent with HOCM, most likely due to dehydration RVSP at 52, left atrium severely dilated, serum of mitral apparatus present with obstruction. Plan: Requiring 2-3 L oxygen via nasal cannula, but shortness of breath getting better Hold all antihypertensive medication until BP stabilizes Lasix 20 mg IV b.i.d. strict input and output monitoring Output of 950 mL in 24 hours Continue home medication aspirin 81 mg p.o. daily, apixaban 5 mg p.o. b.i.d., atorvastatin 80 mg p.o. daily. 08/14/25: Patient oxygen saturation is 92% on room air Blood pressure is 127/65 Hold all antihypertensive medication until BP stabilizes Negative fluid balance of 500 mL Continue IV Lasix 20 mg Continue home medication aspirin 81 mg p.o. daily, apixaban 5 mg p.o. b.i.d., 08/15/25: Discontinue nasal cannula Patient O2 saturation > 92% on room air Negative fluid balance of 951 mL Continue IV Lasix 20 mg B.I.D Type 2 diabetes with diabetic nephropathy Hemoglobin A1c 6.9 Patient on low-dose insulin protocol with insulin glargine 20 Continue gabapentin 100 mg p.o. b.i.d. ALEKSANDAR on CKD stage 3b, likely prerenal Creatinine is trending down Monitor BMP levels Hypertension Blood pressure is on 102/54 Held amlodipine Continue carvedilol 6.25 and lisinopril 20 mg Hyperlipidemia LDL is 46 atorvastatin 80 mg p.o. daily. Normocytic normochromic anemia H&H are 8.0/23.7 Patient is hemodynamically stable Follow up with outpatient Code status: Full code DVT prophylaxis: Eliquis 5 mg p.o. b.i.d. Analgesia/sedation: Morphine/[place] Line/tube: PIV GI prophylaxis: None Nutrition: Heart healthy PT: Pending Prognosis: Guarded Disposition: Continue medical management & follow up with electrician research, ID , PT evaluation. Resident attestation The above note has been reviewed and supervised by a senior resident PGY3 Patient was seen, examined and discussed with the attending physician Ros Hunt MD Internal Medicine Resident, PGY 1 Date of Service: Aug 15, 2025 Billing Provider: JUAN ADAMS MD Common Visit Codes: [id number] INP/OBS CARE(HIGH) REBECA HUNT, RES Aug 15, 2025 16:27 JUAN ADAMS MD Aug 16, 2025 06:37
[2025-08-16] VITALS (12 sets, daily range): BP systolic 124–136; BP diastolic 64–72; PULSE 74–84; RESP 16–20; TEMP 97.8–99; O2SAT 92–98
[2025-08-16 06:03] LABS: MEAN PLATELET VOLUME 7.8 FL (7.4-10.4); RED CELL DISTRIBUTION WIDTH 13.9 % (11.5-14.5)
[2025-08-16 06:27] LABS: CREATININE 2.30 MG/DL (0.60-1.10); PHOSPHORUS 4.1 MG/DL (2.3-4.5); TOTAL CARBON DIOXIDE 29.5 MMOL/L (24-32); eCRCL 43 ML/MIN; eGFR 30 ML/MIN
[2025-08-16] MEDS: vancomycin/NS 1 GM ADD-VANTAGE 250 ML X 1 DOSE IV SCH (12:33)
--- NOTE | 2025-08-16 16:17 | PROGRESS NOTE- Residence ---
Progress Note - Resident Providers to CC Resident Creating Document: REBECA HUNT, RES ~ Rodriguez-Non Protocol Rodriguez Indications Met/Not Met: F/C Indications Not Met Antibiotic Timeout Antibiotic Ordered?: Yes Subjective Patient was seen at bedside. Patient was resting comfortably in the bed and reports mild pain in left foot. Patient denies shortness of breath, lightheadedness and dizzy Objective Vital Signs Date Time Temp Pulse Resp B/P (MAP) Pulse Ox O2 Delivery O2 Flow Rate FiO2 08/16/25 11:00 97.8 80 16 136/70 (92) 95 Room Air 08/16/25 08:06 3.0 08/16/25 08:01 32 Result Diagram: 08/16/25 0459 08/16/25 0459 Awake , alert and oriented to time,place, person,not in distress HEENT: Atraumatic, normocephalic, PERRLA, EOMI, anicteric sclera ; pink conjunctiva, moist mucos membranes Neck: Trachea midline. Supple, normal range of motion, no JVD, no lymphadenopathy Chest and Respiratory: Equal breath sounds bilaterally, no tachypnea, wheezing, ronchi,rubs .Chest wall is symmetric and without deformity. Cardiac: S1, S2 heard,Regular rate and rhythm, no murmurs heard. Abdomen: Soft, No tenderness, No guarding or rigidity, Rasheed's sign negative. normal bowel sounds x4 quadrant, no hepatosplenomegaly MSK: Range of motion of all extremities are normal. There is no joint pain or joint swelling or joint erythema. There is no muscle pain or tenderness or swelling. Extremities: Left leg covered with dressing, warm, well-perfused, No cyanosis, clubbing, 2+ pulses felt Neurological: Decreased sensation in bilateral lower extremities Speech is clear, alert, and oriented x 4. No motor deficits. Cranial nerves II-XII intact. Skin: Warm and dry Psychiatry: Affect and mood are normal Assessment Assessment This is a 55-year-old male with history of diabetes and diabetic nephropathy who came in with sepsis and septic shock from Left foot abscess, restricted in the ICU, downgraded to ortho after his blood pressure stabilized. Patient underwent I&D of left foot abscess by Dr. Morataya. Plan Plan Sepsis, septic shock Left foot abscess s/p I & D by Dr. Morataya on 08/14/25 and 08/15/25 Blood cultures positive for MRSA Currently the patient does not meet sepsis criteria Vitals: Blood pressure soft 100/60, pulse 80s, respiratory rate 25 One fever spike of 102 in the past 24 hour WBC 10.5, raised inflammatory markers Lactic acid normalized to 1.2 Lower extremity MRI ruled out osteomyelitis Plan: Patient on Zosyn 4.5 IV q.4h linezolid 600 mg p.o. b.i.d. Fluid resuscitation Ringer's lactate at 150 mL/hour Wound culture sent, continue wound care 08/12/2025: Blood culture came back positive for Staphylococcus aureus Patient already on linezolid 600 mg p.o. b.i.d. MRI shows phlegmon, Dr. Perez train announcer consulted if incision and drainage needs to be done Fluid resuscitation stopped. 08/13/2025: Continue linezolid 600 mg p.o. b.i.d. and Zosyn 4.[address] Morataya started for segment and a possible incision and drainage 08/14/25: Arterial ultrasound showed no stenosis Continue linezolid 600 mg p.o. b.i.d. and Zosyn 4.5 IV q.4h Patient underwent I&D on bedside by Dr. Morataya today Dr. Morataya will assess the patient tomorrow morning and decide if patient needs surgical intervention or not NPO after midnight 08/15/25: Patient underwent I and D on left foot, today. Patient tolerated the procedure well ESR is 121 Continue linezolid 600 mg p.o. b.i.d. and Zosyn 4.5 IV q.4h We will consult ID regarding course of antibiotics 08/16/25: Wound care was performed Continue linezolid 600 mg p.o. b.i.d. and Zosyn 4.5 IV q.4h Waiting for ID recommendations about course of antibiotics Dr. Morataya on yesterday note mentioned that patient may need further surgical intervention, awaiting for recommendations Acute exacerbation of CHF with preserved ejection fraction of 75% NYHA class 4 Hypertrophic obstructive cardiomyopathy -Serial troponin negative, NT proBNP 11790 Most likely due to fluid resuscitation from septic shock -Blood pressure still on the soft side, to diurese when the blood pressure stabilize -Chest x-ray shows pulmonary vascular congestion -Echocardiogram shows moderately dilated left ventricle with concentric hypertrophy and prominent septal knuckle with hyperdynamic ejection fraction of 75% Significant some detected, findings consistent with HOCM, most likely due to dehydration RVSP at 52, left atrium severely dilated, serum of mitral apparatus present with obstruction. Plan: Requiring 2-3 L oxygen via nasal cannula, but shortness of breath getting better Hold all antihypertensive medication until BP stabilizes Lasix 20 mg IV b.i.d. strict input and output monitoring Output of 950 mL in 24 hours Continue home medication aspirin 81 mg p.o. daily, apixaban 5 mg p.o. b.i.d., atorvastatin 80 mg p.o. daily. 08/14/25: Patient oxygen saturation is 92% on room air Blood pressure is 127/65 Hold all antihypertensive medication until BP stabilizes Negative fluid balance of 500 mL Continue IV Lasix 20 mg Continue home medication aspirin 81 mg p.o. daily, apixaban 5 mg p.o. b.i.d., 08/15/25: Discontinue nasal cannula Patient O2 saturation > 92% on room air Negative fluid balance of 951 mL Continue IV Lasix 20 mg B.I.D 08/16/25: Patient O2 saturation is greater than 92% on room air Continue IV Lasix 20 mg B.I.D Type 2 diabetes with diabetic nephropathy Hemoglobin A1c 6.9 Patient on low-dose insulin protocol with insulin glargine 20 Continue gabapentin 100 mg p.o. b.i.d. ALEKSANDAR on CKD stage 3b, likely prerenal Cr at admission is 3.47 , baseline creatinine is 1.46(07/15/24) Creatinine is trending down Monitor BMP levels Advise follow up with outpatient Hypertension Blood pressure is on 102/54 Held amlodipine Continue carvedilol 6.25 and lisinopril 20 mg Hyperlipidemia LDL is 46 Continue atorvastatin 80 mg p.o. daily. Normocytic normochromic anemia H&H are 8.0/23.7 Patient is hemodynamically stable Follow up with outpatient Code status: Full code DVT prophylaxis: Eliquis 5 mg p.o. b.i.d. Analgesia/sedation: Morphine/[place] Line/tube: PIV Nutrition: Heart healthy PT: Post acute care Disposition: Awaiting recommendations from train announcerMARIELENA. PT recommended post-acute care. Resident attestation The above note has been reviewed and supervised by a senior resident PGY3 Patient was seen, examined and discussed with the attending physician Ros Hunt MD Internal Medicine Resident, PGY 1 Date of Service: Aug 16, 2025 Billing Provider: JUAN ADAMS MD Common Visit Codes: [id number] INP/OBS CARE(HIGH) REBECA HUNT, RES Aug 16, 2025 16:17 JUAN ADAMS MD Aug 17, 2025 07:47
[2025-08-16] MEDS ORDERED: JUVEN Smoothie Arginine/Glut./Ca2+Bmb (Juven 19.3pkt) 240ml cup PO SCH (17:00)
[2025-08-16] MEDS: JUVEN Smoothie Arginine/Glut./Ca2+Bmb (Juven 19.3pkt) 240ml cup PO SCH (17:21)
--- NOTE | 2025-08-16 23:20 | CONSULTATION REPORT ---
Consult Consult Consultation Reason for Consult: DFI Consulting Provider: Dr. Way Antibiotic Days: Zyvox 6, Zosyn 6 Lines: PIV Micro: 08/10 Blood- MRSA 08/13 Blood- ngtd HPI: Patient is a 55 year old male with past medical history of intellectual delay, DM, L foot wound who was brought to [facility] by his caregiver due to lethargy. He was briefly admitted to the ICU due to hypotension and started on broad spectrum antibiotics to cover his foot. Podiatry was consulted and he was taken to the OR yesterday for I&D of a large abscess. Op note is still pending but ID is asked to consult as blood cultures are growing MRSA. On current exam, he is seen with a caregiver at bedside who explained the [facility] program. He was also seen just prior to PT. He would be able to get rides to the infusion center but prefers SNF placement for antibiotics. He denies any grafts, pacemakers, prosthetic joints or other risk factors for metastasis. He denies any antibiotic allergies nor known immunocompromising conditions. Past Medical/Surgical History: Hypertension, Type 2 diabetes, Diabetic neuropathy, Congestive heart failure with preserved ejection fraction Current Medications Medications (Trade) Dose Ordered Sig/Lucinda Route PRN Reason Start Time Stop Time Status Last Admin Dose Admin Acetaminophen (Tylenol tablet) 650 mg ONCE ONCE PO 08/10/25 14:20 08/10/25 14:21 DC 08/10/25 14:23 650 MG Sodium Chloride 1,000 ml @ 1,000 mls/hr ONCE ONCE IV 08/10/25 14:40 08/10/25 15:39 DC 08/10/25 14:43 1,000 MLS/HR Acetaminophen (Tylenol tablet) 325 mg ONCE ONCE PO 08/10/25 15:05 08/10/25 15:36 DC 08/10/25 15:46 325 MG Sodium Chloride 1,000 ml @ 1,000 mls/hr ONCE ONCE IV 08/10/25 15:10 08/10/25 16:09 DC 08/10/25 17:36 1,000 MLS/HR Sodium Chloride 1,000 ml @ 1,000 mls/hr ONCE ONCE IV 08/10/25 15:30 08/10/25 16:29 DC 08/10/25 15:35 1,000 MLS/HR Vancomycin HCl 400 ml @ 134 mls/hr ONCE ONCE IV 08/10/25 15:40 08/10/25 18:39 DC 08/10/25 17:36 134 MLS/HR Norepinephrine Bitartrate 250 ml @ 23.012 mls/ hr [id number] PRN IV to maintain mean MAP 60 08/10/25 15:50 08/11/25 03:16 DC 08/10/25 16:04 23.012 MLS/HR Acetaminophen (Tylenol tablet) 650 mg Q6H PRN PO MILD PAIN (1-3) 08/10/25 17:35 08/12/25 17:32 650 MG Pantoprazole Sodium (Protonix) 40 mg DAILY@0730 PO 08/11/25 07:30 08/16/25 08:24 40 MG Enoxaparin Sodium (Lovenox syringe) 40 mg DAILY SUBCUT 08/11/25 08:00 08/11/25 19:11 DC 08/11/25 09:45 40 MG Linezolid (Zyvox tablet) 600 mg BID PO 08/10/25 20:00 08/16/25 10:29 DC 08/16/25 08:24 600 MG Piperacillin/ Tazobactam/ Dextrose 100 ml @ 25 mls/hr Q8H IV 08/11/25 00:00 08/16/25 10:29 DC 08/16/25 08:31 25 MLS/HR Lactated Ringer's 1,000 ml @ 150 mls/hr Q6H40M IV 08/10/25 17:40 08/12/25 12:45 DC 08/12/25 03:51 150 MLS/HR Insulin Glargine (Lantus inj) 20 unit BID SQ 08/10/25 20:00 08/16/25 21:39 20 UNIT Albumin Human 250 ml @ 250 mls/hr ONCE ONCE IV 08/10/25 20:35 08/10/25 21:34 DC 08/10/25 20:56 250 MLS/HR Morphine Sulfate (morphine inj.) 2 mg Q4H PRN IV moderate pain (4-6) 08/10/25 22:50 08/15/25 22:49 DC 08/10/25 22:57 2 MG Apixaban (Eliquis tablet) 5 mg BID PO 08/12/25 08:00 08/16/25 21:34 5 MG Aspirin (Ecotrin tablet) 1 tab DAILY PO 08/12/25 08:00 08/16/25 08:24 1 TAB Gabapentin (Neurontin capsule) 300 mg TID PO 08/11/25 21:00 08/12/25 15:55 DC 08/12/25 13:40 300 MG Atorvastatin Calcium (Lipitor tablet) 80 mg DAILY PO 08/12/25 08:00 08/16/25 08:24 80 MG Furosemide (Lasix inj) 40 mg STK-MED ONCE .ROUTE 08/12/25 08:44 08/12/25 08:44 DC 08/12/25 08:55 40 MG Furosemide (Lasix inj) 20 mg BID IV 08/12/25 20:00 08/16/25 21:36 20 MG Gabapentin (Neurontin capsule) 300 mg BID PO 08/12/25 15:55 08/16/25 21:34 300 MG Enteral Nutritional Formula (MT Smoothie Arginine/glutam/ Ca2+Bmb) 1 cup BIDBD PO 08/13/25 08:00 08/16/25 12:45 DC 08/16/25 08:25 1 CUP Insulin Human Lispro (Humalog Kwikpen U-100 (100 Unit/ ml) 3ml) SUPPLEMENTAL INSULIN To ... ACHS SQ 08/13/25 07:00 08/16/25 21:38 3 UNIT Albuterol/ Ipratropium (ipratrop/ albuterol 0.5-3(2.5) MG/3ml nebule) 3 ml Q4HRT NEB 08/13/25 07:00 08/16/25 23:00 3 ML Amlodipine Besylate (Norvasc tablet) 2.5 mg DAILY PO 08/13/25 08:00 08/15/25 16:50 DC 08/15/25 08:29 2.5 MG Carvedilol (Coreg tablet) 6.25 mg BID PO 08/13/25 08:00 08/16/25 21:36 6.25 MG Escitalopram Oxalate (Lexapro 10mg tablet) 10 mg DAILY PO 08/13/25 08:00 08/16/25 08:24 10 MG Lisinopril (Zestril tablet) 20 mg DAILY PO 08/13/25 08:00 08/16/25 08:31 20 MG Lactated Ringer's 1,000 ml @ 100 mls/hr Q10H IV 08/15/25 07:45 08/15/25 10:44 DC 08/15/25 08:28 100 MLS/HR Vancomycin HCl (Vancomycin Pharmacy To Dose) 1 unit ONCE ONCE IV 08/16/25 10:30 08/16/25 10:31 DC 08/16/25 11:10 1 UNIT Vancomycin HCl 250 ml @ 166 mls/hr Q12H@0000,1200 IV 08/16/25 12:00 08/16/25 12:33 166 MLS/HR Enteral Nutritional Formula (MT Smoothie Arginine/glutam/ Ca2+Bmb) 1 cup BIDBD PO 08/16/25 17:30 08/16/25 17:21 1 CUP Social History: As in HPI Family History: Noncontrbutory ROS: As in HPI, otherwise negative Objective: Vitals: Afebrile, 80, 16, 136/70, 95% on RA General: A&Ox3, NAD HEENT: NC/AT, normal conjunctiva, no oral lesions CV: Regular Resp: Clear anteriorly Abd: Soft, nontender, nondistended Ext: L foot in postop dressing Lines: PIV ok Laboratory Tests 08/16/25 04:59 08/11 MRI 1. Wound at the plantar aspect of the forefoot near the 1st MTP joint with adjacent soft tissue inflammatory changes, likely cellulitis and possible phlegmon in the appropriate clinical setting. 2. No evidence for osteomyelitis. 3. Additional findings as described above. 08/11 Echo Trileaflet AV appears sclerotic without stenosis. No insufficiency. MV is thickened with mild annular thickening. OMAR of the mitral apparatus present (Loop 11, 37) with obstruction. The tricuspid valve is normal in structure. Trace tricuspid regurgitation. The pulmonary valve is normal in structure. Trace pulmonic insufficiency. 08/13 Arterial No hemodynamically significant stenoses in the left lower extremity. Mild hyperemic flow, likely in the setting of known wound. Assessment: // MRSA septicemia, source is SSTI. No vegetation seen on 2D echo. Repeats 08/13 ngtd // L foot cellulitis/abscess s/p I&D yesterday with op report pending. No cultures obtained // ALEKSANDAR // DM, A1c 6.9 // Antibiotic Allergies: none known Plan: - Recommend Vanco for MRSA - He has had a week of Anaerobic coverage; Nadiya Estrella - Follow up op report and clearance cultures to decide duration - Will place line once duration is known - Wound care per podiatry - Dispo planning: SNF - Monitor Cr - Thank you for the consult, will continue to follow CECILIO MOISE DO Aug 16, 2025 23:20
[2025-08-17] VITALS (13 sets, daily range): BP systolic 138–143; BP diastolic 68–72; PULSE 75–84; RESP 16–19; TEMP 96.8–98.2; O2SAT 92–98
[2025-08-17 08:03] LABS: MEAN PLATELET VOLUME 7.2 FL (7.4-10.4); RED CELL DISTRIBUTION WIDTH 13.5 % (11.5-14.5)
[2025-08-17 08:17] LABS: CREATININE 1.92 MG/DL (0.60-1.10); PHOSPHORUS 3.4 MG/DL (2.3-4.5); TOTAL CARBON DIOXIDE 31.7 MMOL/L (24-32); eCRCL 51 ML/MIN; eGFR 36 ML/MIN
--- NOTE | 2025-08-17 16:01 | PROGRESS NOTE ---
Progress Note ID Providers to CC ~ Progress Note Progress Note: Antibiotic Days: Vanco 1 Lines: PIV Micro: 08/10 Blood- MRSA 08/13 Blood- ngtd Subjective: Patient was expecting surgical re-eval today to see if he needs to go back to the OR Objective: Vitals: Afebrile, 81, 19, 141/72, 89% on 1L General: Alert, NAD CV: Regular Resp: Clear anteriorly Abd: Soft, nontender, nondistended Ext: L foot in postop dressing Lines: PIV ok Laboratory Tests 08/17/25 07:39 Assessment: // MRSA septicemia, source is SSTI. No vegetation seen on 2D echo. Repeats cleared 08/13 // L foot cellulitis/abscess s/p I&D 08/15 with op report pending. No cultures obtained // ALEKSANDAR, Cr improved today // DM, A1c 6.9 // Antibiotic Allergies: none known Plan: - Continue Vanco for MRSA - Follow up op report to decide duration - Will place line once duration is known - Wound care per podiatry. Appreciate plans for possible repeat I&D - Dispo planning: SNF - Monitor Cr - Physical therapy - Will continue to follow CECILIO MOISE DO Aug 17, 2025 16:01
--- NOTE | 2025-08-17 18:16 | PROGRESS NOTE ---
Progress Progress Note: S/P I&D left foot POD#2 pt reports no pain to the left foot at this time wound appears to be healing well with decreased edema, erythema, and no purulence. 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 -will need continued wound care - may benefit from [facility] wound care for daily dressing changes -recommend daily dressing changed with betadine wet to dry dressing -sutures will need to be removed within 1 month of surgery -pt can be heel touch weight bearing with post-op shoe/forefoot offlaoding shoe at this time -continue ABX per medical/ID team while admitted and recommend ABX upon DC per ID recs Exam Exam GEN: pt is NAD and AAOx3 DERM: surgical site looks good with minimal erythema, no purulent drainage, minimal serous drainage, and no necrosis noted to skin surrounding surgical sites NEURO: diminished BL VASC: capilarry fill time WNL, no ischemia noted to surgical sites MSK: no gross msk deformities noted Results/Orders Result Diagram: 08/17/25 0739 08/17/25 0739 Dietary Evaluation Recommendations by RD: Other - see comments Comments: II 08/21 <7+[id number]^prodn F/u 08/16: Pt PO remains improves since last assessment w/ slight diet change in EMR ~95% 75g carb control now just chop all meals continues to receive double protein BIDLD. Pt s/p L foot I&D 10/12 AM per EMR; outside NPO period meeting nutrition needs. LBM 12 per EMR. Will monitor PO trends for further nutrition intervention needs. Recommendations: 1. Continue 75g CHO controlled/chop all diet; double meat BIDLD for satiety 2. Vikram smoothie BIDBD for wound healing; monitor PO trends for adjustment needs 3. Routine bowel regimen 4. Weekly scaled wts Expected Outcomes/Goals: maintain stable wt, meet at least 75% of estimated nutrient needs, ONS acceptance, bowel regularity, wound healing, BG 80-180 mg/dl BRENNEN NAJERA DPM Aug 17, 2025 18:16
--- NOTE | 2025-08-17 18:30 | PROGRESS NOTE- Residence ---
Progress Note - Resident Providers to CC Resident Creating Document: REBECA HUNT, RES ~ Central Line/PICC still needed: N\A Rodriguez-Non Protocol Rodriguez Indications Met/Not Met: F/C Indications Not Met Antibiotic Timeout Antibiotic Ordered?: Yes Subjective Patient was seen at bedside. Patient was resting comfortably in the bed, and denies shortness of breath, lightheadedness and dizzy, foot pain. No acute overnight symptoms noted. Patient denies any concerns or complaints at that moment. Objective Vital Signs Date Time Temp Pulse Resp B/P (MAP) Pulse Ox O2 Delivery O2 Flow Rate FiO2 08/17/25 10:00 97.9 84 17 143/68 (93) 93 Room Air 08/17/25 08:00 0.0 08/17/25 07:48 24 Result Diagram: 08/17/25 0739 08/17/25 0739 Awake , alert and oriented to time,place, person,not in distress HEENT: Atraumatic, normocephalic, PERRLA, EOMI, anicteric sclera ; pink conjunctiva, moist mucos membranes Neck: Trachea midline. Supple, normal range of motion, no JVD, no lymphadenopathy Chest and Respiratory: Equal breath sounds bilaterally, no tachypnea, wheezing, ronchi,rubs .Chest wall is symmetric and without deformity. Cardiac: S1, S2 heard,Regular rate and rhythm, no murmurs heard. Abdomen: Soft, No tenderness, No guarding or rigidity, Rasheed's sign negative. normal bowel sounds x4 quadrant, no hepatosplenomegaly MSK: Range of motion of all extremities are normal. There is no joint pain or joint swelling or joint erythema. There is no muscle pain or tenderness or swelling. Extremities: Left leg covered with dressing, warm, well-perfused, No cyanosis, clubbing, 2+ pulses felt Neurological: Decreased sensation in bilateral lower extremities, Speech is clear, alert, and oriented x 4. No motor deficits. Cranial nerves II-XII intact. Skin: Warm and dry Psychiatry: Affect and mood are normal Assessment Assessment This is a 55-year-old male with history of diabetes and diabetic nephropathy who came in with sepsis and septic shock from Left foot abscess, restricted in the ICU, downgraded to ortho after his blood pressure stabilized. Patient underwent I&D of left foot abscess by Dr. Morataya. Plan Plan Sepsis, septic shock MRSA septicemia Left foot abscess s/p I & D by Dr. Morataya on 08/14/25 and 08/15/25 Blood cultures positive for MRSA on 08/10/25 Blood Culture showed no growth on 08/13/25 Currently the patient does not meet sepsis criteria Vitals: Blood pressure soft 100/60, pulse 80s, respiratory rate 25 One fever spike of 102 in the past 24 hour WBC 10.5, raised inflammatory markers Lactic acid normalized to 1.2 Lower extremity MRI ruled out osteomyelitis Plan: Patient on Zosyn 4.5 IV q.4h linezolid 600 mg p.o. b.i.d. Fluid resuscitation Ringer's lactate at 150 mL/hour Wound culture sent, continue wound care 08/12/2025: Blood culture came back positive for Staphylococcus aureus Patient already on linezolid 600 mg p.o. b.i.d. MRI shows phlegmon, Dr. Perez grounds worker consulted if incision and drainage needs to be done Fluid resuscitation stopped. 08/13/2025: Continue linezolid 600 mg p.o. b.i.d. and Zosyn 4.[address] Morataya started for segment and a possible incision and drainage 08/14/25: Arterial ultrasound showed no stenosis Continue linezolid 600 mg p.o. b.i.d. and Zosyn 4.5 IV q.4h Patient underwent I&D on bedside by Dr. Morataya today Dr. Morataya will assess the patient tomorrow morning and decide if patient needs surgical intervention or not NPO after midnight 08/15/25: Patient underwent I and D on left foot, today. Patient tolerated the procedure well ESR is 121 Continue linezolid 600 mg p.o. b.i.d. and Zosyn 4.5 IV q.4h We will consult ID regarding course of antibiotics 08/16/25: Wound care was performed Discontinue linezolid 600 mg p.o. b.i.d. and Zosyn 4.5 IV q.4h Started on vancomycin pharmacy to dose Waiting for ID recommendations about course of antibiotics Dr. Morataya on yesterday note mentioned that patient may need further surgical intervention, awaiting for recommendations 08/17/25: Discontinue linezolid and Zosyn Continue vancomycin ( Day 2 ) for 2 weeks as per ID recommendation. Planning to place midline tomorrow. Advised to Follow up with outpatient Podiatry, the wound care center as Dr. Lindo recommendation Acute exacerbation of CHF with preserved ejection fraction of 75% NYHA class 4 Hypertrophic obstructive cardiomyopathy -Serial troponin negative, NT proBNP 73050 Most likely due to fluid resuscitation from septic shock -Blood pressure still on the soft side, to diurese when the blood pressure stabilize -Chest x-ray shows pulmonary vascular congestion -Echocardiogram shows moderately dilated left ventricle with concentric hypertrophy and prominent septal knuckle with hyperdynamic ejection fraction of 75% Significant some detected, findings consistent with HOCM, most likely due to dehydration RVSP at 52, left atrium severely dilated, serum of mitral apparatus present with obstruction. Plan: Requiring 2-3 L oxygen via nasal cannula, but shortness of breath getting better Hold all antihypertensive medication until BP stabilizes Lasix 20 mg IV b.i.d. strict input and output monitoring Output of 950 mL in 24 hours Continue home medication aspirin 81 mg p.o. daily, apixaban 5 mg p.o. b.i.d., atorvastatin 80 mg p.o. daily. 08/14/25: Patient oxygen saturation is 92% on room air Blood pressure is 127/65 Hold all antihypertensive medication until BP stabilizes Negative fluid balance of 500 mL Continue IV Lasix 20 mg Continue home medication aspirin 81 mg p.o. daily, apixaban 5 mg p.o. b.i.d., 08/15/25: Discontinue nasal cannula Patient O2 saturation > 92% on room air Negative fluid balance of 951 mL Continue IV Lasix 20 mg B.I.D 08/16/25: Patient O2 saturation is greater than 92% on room air Continue IV Lasix 20 mg B.I.D 08/17/25: Patient O2 saturation > 92% on room air Continue IV Lasix 20 mg B.I.D ontinue carvedilol 6.25 and lisinopril 20 mg Type 2 diabetes with diabetic nephropathy Hemoglobin A1c 6.9 Patient on low-dose insulin protocol with insulin glargine 20 Continue gabapentin 100 mg p.o. b.i.d. ALEKSANDAR on CKD stage 3b, likely prerenal, resolving Cr at admission is 3.47 , baseline creatinine is 1.46(07/15/24) Creatinine is trending down Monitor BMP levels Advise follow up with outpatient Hypertension Blood pressure is on 102/54 Held amlodipine Continue carvedilol 6.25 and lisinopril 20 mg Hyperlipidemia LDL is 46 Continue atorvastatin 80 mg p.o. daily. Normocytic normochromic anemia H&H are 8.0/23.7 Patient is hemodynamically stable Follow up with outpatient Code status: Full code DVT prophylaxis: Eliquis 5 mg p.o. b.i.d. Analgesia/sedation: Morphine/[place] Line/tube: PIV Nutrition: Heart healthy PT: Post acute care Disposition: ID recommended IV antibiotics for 2 weeks. PT recommended post- acute care. Anticipate discharge next 24 hours. Resident attestation The above note has been reviewed and supervised by a senior resident PGY3 Patient was seen, examined and discussed with the attending physician Ros Hunt MD Internal Medicine Resident, PGY 1 Date of Service: Aug 17, 2025 Billing Provider: JUAN ADAMS MD Common Visit Codes: [id number] INP/OBS CARE(HIGH) REBECA HUNT, RES Aug 17, 2025 18:30 JUAN ADAMS MD Aug 18, 2025 07:00
--- NOTE | 2025-08-17 18:31 | OPERATIVE REPORT ---
Operative Report Providers to CC ~ Date of Procedure: Aug 15, 2025 Pre-Operative Diagnosis: infection/abscess left foot Post-Operative Diagnosis SAME as PRE-Op Procedure Performed Incision and drainage left foot Surgeon: Brennen Morataya DPM [place] None Anesthesiologist: Matt Stewart Type of Anesthesia: General Findings: abscess to left foot that started at chronic wound sub first met head tracked proximally along plantar fascia and distall along lateral aspect of hallux Complications none Estimated Blood Loss: 30cc Specimen Removed: none Description of Procedure: pt seen in holding room, planned procedure explained to [facility] pt in detail, all risks and benefits explained to opt in detail. Pt consented to planned procedure and correct limb was signed. pt was taken to operating room and placed on or table in supine position, anesthesia was administered and LLE was scrubbed and draped in normal sterile fashion. attention was directed to the LLE where a chronic wound is noted sub 1st met head with surrounding erythema and edema with purulent a small stab incision no justice distal and proximal to the wound where bedside I&D was performed. also small stab incision noted to dorsal lateral aspect of hallux. an incision was made starting at the base of the proximal phalanx of the hallux extending proximally through the stab incision, through the chronic wound and proximally along plantar aspect of the foot along to the other stab incision and followed proximally to the midfoot, There is copious amounts of purulence noted with minimal necrosis noted. the distal end of the abscess tracks dorsally along the lateral aspect of the hallux to the stab incision to the dorsal hallux, the stab incision was extended both proximally and distally. at this time the site is copiously irrigated with pulse lavage with vanco. at this time a 15 blade was then utilized to sharply excise the chronic wound and any non-viable skin and soft tissue. the sites were then irrigated with betadine, hydrogen peroxide, hibiclense, and more pulse lavage containing vanco. at this time all remaining soft tissue appears to be healthy without signs of further abscess tracking or necrotic/non-viable tissue. the incision was then loosely re-approximated using 2-0 nylon and a betadine wet to dry dressing was applied. pt tolerated anesthesia and the procedure well and was transferred to recovery in stable condition. Counts repoted as correct: Yes BRENNEN MORATAYA DPM Aug 17, 2025 18:31
[2025-08-17] MEDS: VANCOMYCIN LEVEL IV ONE (23:47)
[2025-08-18] VITALS (14 sets, daily range): BP systolic 125–151; BP diastolic 65–83; PULSE 69–94; RESP 16–24; TEMP 97.6–98.3; O2SAT 92–95
[2025-08-18 09:01] LABS: MEAN PLATELET VOLUME 7.4 FL (7.4-10.4); RED CELL DISTRIBUTION WIDTH 13.5 % (11.5-14.5)
[2025-08-18 09:29] LABS: CREATININE 1.58 MG/DL (0.60-1.10); PHOSPHORUS 3.3 MG/DL (2.3-4.5); TOTAL CARBON DIOXIDE 30.1 MMOL/L (24-32); eCRCL 62 ML/MIN; eGFR 46 ML/MIN
--- NOTE | 2025-08-18 15:39 | PROGRESS NOTE- Residence ---
Progress Note - Resident Providers to CC Resident Creating Document: REBECA HUNT, RES ~ Rodriguez-Non Protocol Rodriguez Indications Met/Not Met: F/C Indications Not Met Antibiotic Timeout Antibiotic Ordered?: Yes Subjective Patient was seen at bedside . No acute overnight symptoms noted. Patient denies shortness or breath, chest pain, lightheadedness or syncope. Patient denies any concerns or complaints at that moment. Objective Vital Signs Date Time Temp Pulse Resp B/P (MAP) Pulse Ox O2 Delivery O2 Flow Rate FiO2 08/18/25 11:24 81 16 Room Air 0.0 08/18/25 11:23 92 21 08/18/25 10:08 98.3 125/69 (87) Result Diagram: 08/18/25 0749 08/18/25 0749 Awake , alert and oriented to time,place, person,not in distress HEENT: Atraumatic, normocephalic, PERRLA, EOMI, anicteric sclera ; pink conjunctiva, moist mucos membranes Neck: Trachea midline. Supple, normal range of motion, no JVD, no lymphadenopathy Chest and Respiratory: Equal breath sounds bilaterally, no tachypnea, wheezing, ronchi,rubs .Chest wall is symmetric and without deformity. Cardiac: S1, S2 heard,Regular rate and rhythm, no murmurs heard. Abdomen: Soft, No tenderness, No guarding or rigidity, Rasheed's sign negative. normal bowel sounds x4 quadrant, no hepatosplenomegaly MSK: Range of motion of all extremities are normal. There is no joint pain or joint swelling or joint erythema. There is no muscle pain or tenderness or swelling. Extremities: Left leg covered with dressing, warm, well-perfused, No cyanosis, clubbing, 2+ pulses felt Neurological: Decreased sensation in bilateral lower extremities, Speech is clear, alert, and oriented x 4. No motor deficits. Cranial nerves II-XII intact. Skin: Warm and dry Psychiatry: Affect and mood are normal Assessment Assessment This is a 55-year-old male with history of diabetes and diabetic nephropathy who came in with sepsis and septic shock from Left foot abscess, restricted in the ICU, downgraded to ortho after his blood pressure stabilized. Patient underwent I&D of left foot abscess by Dr. Morataya. Plan Plan Sepsis, septic shock MRSA septicemia Left foot abscess s/p I & D by Dr. Morataya on 08/14/25 and 08/15/25 Ruled out osteomyelitis Blood cultures positive for MRSA on 08/10/25 Blood Culture showed no growth on 08/13/25 Currently the patient does not meet sepsis criteria Vitals: Blood pressure soft 100/60, pulse 80s, respiratory rate 25 One fever spike of 102 in the past 24 hour WBC 10.5, raised inflammatory markers Lactic acid normalized to 1.2 Lower extremity MRI ruled out osteomyelitis Plan: Patient on Zosyn 4.5 IV q.4h linezolid 600 mg p.o. b.i.d. Fluid resuscitation Ringer's lactate at 150 mL/hour Wound culture sent, continue wound care 08/12/2025: Blood culture came back positive for Staphylococcus aureus Patient already on linezolid 600 mg p.o. b.i.d. MRI shows phlegmon, Dr. Perez pipe straightener consulted if incision and drainage needs to be done Fluid resuscitation stopped. 08/13/2025: Continue linezolid 600 mg p.o. b.i.d. and Zosyn 4.[address] Morataya started for segment and a possible incision and drainage 08/14/25: Arterial ultrasound showed no stenosis Continue linezolid 600 mg p.o. b.i.d. and Zosyn 4.5 IV q.4h Patient underwent I&D on bedside by Dr. Morataya today Dr. Morataya will assess the patient tomorrow morning and decide if patient needs surgical intervention or not NPO after midnight 08/15/25: Patient underwent I and D on left foot, today. Patient tolerated the procedure well ESR is 121 Continue linezolid 600 mg p.o. b.i.d. and Zosyn 4.5 IV q.4h We will consult ID regarding course of antibiotics 08/16/25: Wound care was performed Discontinue linezolid 600 mg p.o. b.i.d. and Zosyn 4.5 IV q.4h Started on vancomycin pharmacy to dose Waiting for ID recommendations about course of antibiotics Dr. Morataya on yesterday note mentioned that patient may need further surgical intervention, awaiting for recommendations 08/17/25: Discontinue linezolid and Zosyn Continue vancomycin ( Day 2 ) for 2 weeks as per ID recommendation. Planning to place midline tomorrow. Advised to Follow up with outpatient Podiatry, the wound care center as Dr. Lindo recommendation 08/18/25: Midline was placed Continue vancomycin ( Day 3 ) for 2 weeks as per ID recommendation. Stop date is 08/26/25 Advised to Follow up with outpatient Podiatry, the wound care center as Dr. Lindo recommendation Acute exacerbation of CHF with preserved ejection fraction of 75% NYHA class 4 Hypertrophic obstructive cardiomyopathy -Serial troponin negative, NT proBNP 71489 Most likely due to fluid resuscitation from septic shock -Blood pressure still on the soft side, to diurese when the blood pressure stabilize -Chest x-ray shows pulmonary vascular congestion -Echocardiogram shows moderately dilated left ventricle with concentric hypertrophy and prominent septal knuckle with hyperdynamic ejection fraction of 75% Significant some detected, findings consistent with HOCM, most likely due to dehydration RVSP at 52, left atrium severely dilated, serum of mitral apparatus present with obstruction. Plan: Requiring 2-3 L oxygen via nasal cannula, but shortness of breath getting better Hold all antihypertensive medication until BP stabilizes Lasix 20 mg IV b.i.d. strict input and output monitoring Output of 950 mL in 24 hours Continue home medication aspirin 81 mg p.o. daily, apixaban 5 mg p.o. b.i.d., atorvastatin 80 mg p.o. daily. 08/14/25: Patient oxygen saturation is 92% on room air Blood pressure is 127/65 Hold all antihypertensive medication until BP stabilizes Negative fluid balance of 500 mL Continue IV Lasix 20 mg Continue home medication aspirin 81 mg p.o. daily, apixaban 5 mg p.o. b.i.d., 08/15/25: Discontinue nasal cannula Patient O2 saturation > 92% on room air Negative fluid balance of 951 mL Continue IV Lasix 20 mg B.I.D 08/16/25: Patient O2 saturation is greater than 92% on room air Continue IV Lasix 20 mg B.I.D 08/17/25: Patient O2 saturation > 92% on room air Continue IV Lasix 20 mg B.I.D ontinue carvedilol 6.25 and lisinopril 20 mg 08/18/25: Continue IV Lasix 20 mg B.I.D Continue carvedilol 6.25 and lisinopril 20 mg Type 2 diabetes with diabetic nephropathy Hemoglobin A1c 6.9 Patient on low-dose insulin protocol with insulin glargine 20 Continue gabapentin 100 mg p.o. b.i.d. ALEKSANDAR on CKD stage 3b, likely prerenal, resolving Cr at admission is 3.47 , baseline creatinine is 1.46(07/15/24) Creatinine is trending down Monitor BMP levels Advise follow up with outpatient Hypertension Blood pressure is on 102/54 Held amlodipine Continue carvedilol 6.25 and lisinopril 20 mg Hyperlipidemia LDL is 46 Continue atorvastatin 80 mg p.o. daily. Normocytic normochromic anemia H&H are 8.0/23.7 Patient is hemodynamically stable Follow up with outpatient Code status: Full code DVT prophylaxis: Eliquis 5 mg p.o. b.i.d. Analgesia/sedation: Morphine/[place]/tube: PIV Nutrition: Heart healthy PT: Post acute care Disposition: ID recommended IV antibiotics for 2 weeks. PT recommended post- acute care. Awaiting for placement Anticipate discharge next 24-48 hours. Resident attestation The above note has been reviewed and supervised by a senior resident PGY3 Patient was seen, examined and discussed with the attending physician Ros Hunt MD Internal Medicine Resident, PGY 1 Date of Service: Aug 18, 2025 Billing Provider: JUAN ADAMS MD Common Visit Codes: [id number] INP/OBS CARE(HIGH) REBECA HUNT, RES Aug 18, 2025 15:39 JUAN ADAMS MD Aug 19, 2025 10:14
--- NOTE | 2025-08-18 17:33 | DISCHARGE SUMMARY-Residence ---
Discharge Summary Providers to CC Resident Creating Document: REBECA MARTINS JOE, RES ~ Discharge Summary Admission Diagnosis: infection/abscess left foot Hospital Course DATE OF ADMISSION: DATE OF DISCHARGE: Discharge Diagnosis\Comment: Sepsis, septic shock, POA resolved MRSA septicemia Left foot abscess s/p I & D by Dr. Morataya on 08/14/25 and 08/15/25 Left foot cellulitis Acute exacerbation of CHF with preserved ejection fraction of 75% Type 2 diabetes with diabetic nephropathy ALEKSANDAR on CKD stage 3b, likely prerenal with possible vasomotor nephropathy Hypertension Hyperlipidemia Normocytic normochromic anemia Operations\Procedures: Left foot abscess s/p I & D by Dr. Morataya on 08/14/25 and 08/15/25 Consultants: Dr. Morataya, podiatry Dr. Cain, the Infectious Disease Complications: None Condition on DC: Stable for transfer Discharge Summary: History of present illness: This is a 55-year-old male with past medical history of hypertension, type 2 diabetes, heart failure preserved ejection fraction who came to the ER with se pticemia and septic shock from a wound on his left plantar surface. According to the patient he had a wound from a trauma which he did not notice due to diabetic neuropathy. When the SS worker came for a checkup, he examined the wound and ask the patient to follow up with the primary care. He was on outpatient antibiotic and wound care since the past 3-4 months. He came to the ER yesterday when he developed high fever and generalized weakness. He was found to be in septic shock in the ER and was admitted to the ICU for fluid resuscitation. Once his vitals had normalized he was downgraded to PCU. Currently the patient is maintaining blood pressure, off pressors and fluids, short of breath at rest most likely due to exacerbation of heart failure from fl uid resuscitation. He also complains of orthopnea. Course in the hospital: Patient was admitted with sepsis and septic shock secondary to left plantar wound infected with MRSA. He was initially managed in the ICU with IV fluids for hemodynamic stabilization and later downgraded. Broad-spectrum antibiotics( IV Zosyn and oral linezolid) were started after blood culture showed MRSA. MRI of left foot ruled out osteomyelitis. Podiatry and ID doctor was consulted. Patient underwent incision and drainage of abscess of left foot on 08/14/2025 and 08/15/2025 which he tolerated well. ID recommended IV vancomycin with midline for 2 weeks and stop date is 08/27/2025. At the time of discharge, he was afebrile, hemodynamically stable and tolerated oral intake with clean, healing wound. Advised to follow up outpatient podiatry and wound care. Patient has heart failure was managed with diuretics, GDMT drugs and his blood glucose was optimized during hospital course with glargine and low-dose insulin Humalog protocol. Held amlodipine in view of low blood pressure and advised to check blood pressures regularly home, follow up with PCP. Patient condition improved steadily and stable at the time of discharge. Imaging: Chest x-ray: 08/10/25: Pulmonary vascular congestion. Perihilar opacities, favor pulmonary edema. 08/10/25: Pulmonary vascular congestion. Echocardiogram: 08/11/25: LV is moderately dilated with moderate concentric hypertrophy and prominent septal knuckle. Increased LV basal velocity of 3.54 cm/s. Peak / mean LV gradients of 50 / 16 mmHg at rest. Velocity increases to 7.42 mmHg. Peak / mean LV gradients of 220 / 97 mmHg post PVC. Patient unable to perform successful Valsalva. Significant systolic anterior motion (OMAR detected). See loop: 11, 37. Velocity increase throughout due to prominent septal hyperdynamic LV function. Findings consistent with HOCM (hypertrophic obstructive cardiomyopathy). Overall systolic function is hyperdynamic. LVEF is 75%. RV appears mildly dilated with normal contractility. RVSP is estimated at 52 mmHG. Left atrium is severely dilated. Trileaflet AV appears sclerotic without stenosis. No insufficiency. MV is thickened with mild annular thickening. OMAR of the mitral apparatus present (Loop 11, 37) with obstruction. The tricuspid valve is normal in structure. Trace tricuspid regurgitation. The pulmonary valve is normal in structure. Trace pulmonic insufficiency. Aortic root is dilated. Ascending aorta measured at 3.8 cm. There is no pericardial effusion. 08/13/25: Left ventricle appears dilated with concentric hypertrophy. Overall systolic function is hyperdynamic. LVEF is 75% No vegetation see. AV not fully evaluated due to limited exam. No vegetation see. Redundant chordae noted with anterior leaflet, (seen in image #4). MV not fully evaluated due to limited exam. No vegetation see. TV not fully evaluated due to limited exam. No vegetation see. PV not fully evaluated due to limited exam. Normal pericardium. No effusion. Lower extremity MRI: 1. Wound at the plantar aspect of the forefoot near the 1st MTP joint with adjacent soft tissue inflammatory changes, likely cellulitis and possible phlegmon in the appropriate clinical setting. 2. No evidence for osteomyelitis. Arterial ultrasound: No hemodynamically significant stenoses in the left lower extremity. Mild hyperemic flow, likely in the setting of known wound. Vital Signs Date Time Temp Pulse Resp B/P (MAP) Pulse Ox O2 Delivery O2 Flow Rate FiO2 08/20/25 14:39 80 16 Room Air 0.0 08/20/25 14:31 92 21 08/20/25 10:00 97.8 120/67 (84) Laboratory Tests Test 08/18/25 21:05 08/19/25 04:40 08/19/25 07:43 08/19/25 13:06 Glucometer 290 mg/dl 229 mg/dl 289 mg/dl Sodium Level 135 MMOL/L Potassium Level 4.3 MMOL/L Chloride Level 99 MMOL/L Carbon Dioxide Level 31.3 MMOL/L Anion Gap 5 Blood Urea Nitrogen 30 MG/DL Creatinine 1.79 MG/DL Estimated GFR/1.73 m2 39 ML/MIN BUN/Creatinine Ratio 16.8 Glucose Level 224 MG/DL Calcium Level 8.8 MG/DL Phosphorus Level 3.8 MG/DL Magnesium Level 1.6 MG/DL Albumin 2.2 G/DL Chemistry Comments Test 08/19/25 17:24 08/19/25 20:58 08/20/25 04:15 08/20/25 06:48 Glucometer 266 mg/dl 291 mg/dl 276 mg/dl Sodium Level 134 MMOL/L Potassium Level 4.3 MMOL/L Chloride Level 98 MMOL/L Carbon Dioxide Level 29.9 MMOL/L Anion Gap 6 Blood Urea Nitrogen 41 MG/DL Creatinine 2.08 MG/DL Estimated GFR/1.73 m2 33 ML/MIN BUN/Creatinine Ratio 19.7 Glucose Level 260 MG/DL Calcium Level 8.6 MG/DL Phosphorus Level 4.6 MG/DL Magnesium Level 1.7 MG/DL Albumin 2.2 G/DL Chemistry Comments Test 08/20/25 11:58 Glucometer 314 mg/dl Physical exam at discharge: Awake , alert and oriented to time,place, person,not in distress HEENT: Atraumatic, normocephalic, PERRLA, EOMI, anicteric sclera ; pink conjunctiva, moist mucos membranes Neck: Trachea midline. Supple, normal range of motion, no JVD, no lymphadenopathy Chest and Respiratory: Equal breath sounds bilaterally, no tachypnea, wheezing, ronchi,rubs .Chest wall is symmetric and without deformity. Cardiac: S1, S2 heard,Regular rate and rhythm, no murmurs heard. Abdomen: Soft, No tenderness, No guarding or rigidity, Rasheed's sign negative. normal bowel sounds x4 quadrant, no hepatosplenomegaly MSK: Range of motion of all extremities are normal. There is no joint pain or joint swelling or joint erythema. There is no muscle pain or tenderness or swelling. Extremities: Left leg covered with dressing, warm, well-perfused, No cyanosis, clubbing, 2+ pulses felt Neurological: Decreased sensation in bilateral lower extremities, Speech is clear, alert, and oriented x 4. No motor deficits. Cranial nerves II-XII intact. Skin: Warm and dry Psychiatry: Affect and mood are normal Discharge instructions: Advised to follow up with Podiatry Dr. Lindo and Wound care consult Continue IV vancomycin through midline for 2 weeks and stop date is 08/27/25 Advised to follow up with PCP and GI consult for anemia with suspicion of GI bleed *Problems/Diagnosis: (1) Sepsis (2) Septic shock (3) MRSA (methicillin resistant Staphylococcus aureus) septicemia (4) Foot abscess, left (5) Cellulitis of left foot (6) Acute exacerbation of CHF (congestive heart failure) (7) Type 2 diabetes mellitus with diabetic nephropathy (8) ALEKSANDAR (acute kidney injury) (9) Hypertension (10) Hyperlipidemia (11) Normocytic normochromic anemia Total Time Spent on D/C: > 30 Minutes Date of Service: Aug 20, 2025 Billing Provider: EMMY ALMENDAREZ MD Common Visit Codes: [id number] DISCH DAY >30min REBECA MARTINS, RES Aug 18, 2025 17:18 EMMY ALMENDAREZ MD Aug 22, 2025 14:08
[2025-08-19] VITALS (13 sets, daily range): BP systolic 109–151; BP diastolic 56–79; PULSE 80–91; RESP 14–22; TEMP 97.8–98.3; O2SAT 92–94
[2025-08-19 06:14] LABS: CREATININE 1.79 MG/DL (0.60-1.10); PHOSPHORUS 3.8 MG/DL (2.3-4.5); TOTAL CARBON DIOXIDE 31.3 MMOL/L (24-32); eCRCL 55 ML/MIN; eGFR 39 ML/MIN
--- NOTE | 2025-08-19 18:19 | PROGRESS NOTE- Residence ---
Progress Note - Resident Providers to CC Resident Creating Document: REBECA HUNT, RES ~ Rodriguez-Non Protocol Rodriguez Indications Met/Not Met: F/C Indications Not Met Antibiotic Timeout Antibiotic Ordered?: Yes Subjective Patient was seen at bedside . No acute overnight symptoms noted. Patient denies shortness or breath, chest pain, lightheadedness or syncope. Patient denies any concerns or complaints at that moment. Awaiting for approval from SNF placement Objective Vital Signs Date Time Temp Pulse Resp B/P (MAP) Pulse Ox O2 Delivery O2 Flow Rate FiO2 08/19/25 16:11 83 22 Room Air 0.0 08/19/25 16:09 94 21 08/18/25 22:00 97.6 142/78 (99) Result Diagram: 08/18/25 0749 08/19/25 0440 Awake , alert and oriented to time,place, person,not in distress HEENT: Atraumatic, normocephalic, PERRLA, EOMI, anicteric sclera ; pink conjunctiva, moist mucos membranes Neck: Trachea midline. Supple, normal range of motion, no JVD, no lymphadenopathy Chest and Respiratory: Equal breath sounds bilaterally, no tachypnea, wheezing, ronchi,rubs .Chest wall is symmetric and without deformity. Cardiac: S1, S2 heard,Regular rate and rhythm, no murmurs heard. Abdomen: Soft, No tenderness, No guarding or rigidity, Rasheed's sign negative. normal bowel sounds x4 quadrant, no hepatosplenomegaly MSK: Range of motion of all extremities are normal. There is no joint pain or joint swelling or joint erythema. There is no muscle pain or tenderness or swelling. Extremities: Left leg covered with dressing, warm, well-perfused, No cyanosis, clubbing, 2+ pulses felt Neurological: Decreased sensation in bilateral lower extremities, Speech is clear, alert, and oriented x 4. No motor deficits. Cranial nerves II-XII intact. Skin: Warm and dry Psychiatry: Affect and mood are normal Assessment Assessment This is a 55-year-old male with history of diabetes who came in with sepsis and septic shock from Left foot abscess, initially admitted to ICU, later downgraded. Patient underwent I&D of left foot abscess by Dr. Morataya. ID advised IV vancomycin for 2 weeks and PT recommended post-acute care. Waiting for SNF approval Plan Plan Sepsis, septic shock MRSA septicemia Left foot abscess s/p I & D by Dr. Morataya on 08/14/25 and 08/15/25 Ruled out osteomyelitis Blood cultures positive for MRSA on 08/10/25 Blood Culture showed no growth on 08/13/25 Currently the patient does not meet sepsis criteria Vitals: Blood pressure soft 100/60, pulse 80s, respiratory rate 25 One fever spike of 102 in the past 24 hour WBC 10.5, raised inflammatory markers Lactic acid normalized to 1.2 Lower extremity MRI ruled out osteomyelitis Plan: Patient on Zosyn 4.5 IV q.4h linezolid 600 mg p.o. b.i.d. Fluid resuscitation Ringer's lactate at 150 mL/hour Wound culture sent, continue wound care 08/12/2025: Blood culture came back positive for Staphylococcus aureus Patient already on linezolid 600 mg p.o. b.i.d. MRI shows phlegmon, Dr. Perez santa's helper consulted if incision and drainage needs to be done Fluid resuscitation stopped. 08/13/2025: Continue linezolid 600 mg p.o. b.i.d. and Zosyn 4.[address] Morataya started for segment and a possible incision and drainage 08/14/25: Arterial ultrasound showed no stenosis Continue linezolid 600 mg p.o. b.i.d. and Zosyn 4.5 IV q.4h Patient underwent I&D on bedside by Dr. Morataya today Dr. Morataya will assess the patient tomorrow morning and decide if patient needs surgical intervention or not NPO after midnight 08/15/25: Patient underwent I and D on left foot, today. Patient tolerated the procedure well ESR is 121 Continue linezolid 600 mg p.o. b.i.d. and Zosyn 4.5 IV q.4h We will consult ID regarding course of antibiotics 08/16/25: Wound care was performed Discontinue linezolid 600 mg p.o. b.i.d. and Zosyn 4.5 IV q.4h Started on vancomycin pharmacy to dose Waiting for ID recommendations about course of antibiotics Dr. Morataya on yesterday note mentioned that patient may need further surgical intervention, awaiting for recommendations 08/17/25: Discontinue linezolid and Zosyn Continue vancomycin ( Day 2 ) for 2 weeks as per ID recommendation. Planning to place midline tomorrow. Advised to Follow up with outpatient Podiatry, the wound care center as Dr. Lindo recommendation 08/18/25: Midline was placed Continue vancomycin ( Day 3 ) for 2 weeks as per ID recommendation. Stop date is 08/26/25 Advised to Follow up with outpatient Podiatry, the wound care center as Dr. Lindo recommendation 08/19/25: Patient has Midline Continue vancomycin ( Day 4 ) for 2 weeks as per ID recommendation. Stop date is 08/26/25 Advised to Follow up with outpatient Podiatry, the wound care center as Dr. Lindo recommendation Acute exacerbation of CHF with preserved ejection fraction of 75% NYHA class 4 Ruled out Hypertrophic obstructive cardiomyopathy -Serial troponin negative, NT proBNP 29108 Most likely due to fluid resuscitation from septic shock -Blood pressure still on the soft side, to diurese when the blood pressure stabilize -Chest x-ray shows pulmonary vascular congestion -Echocardiogram shows moderately dilated left ventricle with concentric hypertrophy and prominent septal knuckle with hyperdynamic ejection fraction of 75% Significant some detected, findings consistent with HOCM, most likely due to dehydration RVSP at 52, left atrium severely dilated, serum of mitral apparatus present with obstruction. Plan: Requiring 2-3 L oxygen via nasal cannula, but shortness of breath getting better Hold all antihypertensive medication until BP stabilizes Lasix 20 mg IV b.i.d. strict input and output monitoring Output of 950 mL in 24 hours Continue home medication aspirin 81 mg p.o. daily, apixaban 5 mg p.o. b.i.d., atorvastatin 80 mg p.o. daily. 08/14/25: Patient oxygen saturation is 92% on room air Blood pressure is 127/65 Hold all antihypertensive medication until BP stabilizes Negative fluid balance of 500 mL Continue IV Lasix 20 mg Continue home medication aspirin 81 mg p.o. daily, apixaban 5 mg p.o. b.i.d., 08/15/25: Discontinue nasal cannula Patient O2 saturation > 92% on room air Negative fluid balance of 951 mL Continue IV Lasix 20 mg B.I.D 08/16/25: Patient O2 saturation is greater than 92% on room air Continue IV Lasix 20 mg B.I.D 08/17/25: Patient O2 saturation > 92% on room air Continue IV Lasix 20 mg B.I.D ontinue carvedilol 6.25 and lisinopril 20 mg 08/18/25: Continue IV Lasix 20 mg B.I.D Continue carvedilol 6.25 and lisinopril 20 mg 08/19/25: Continue IV Lasix 20 mg B.I.D Continue carvedilol 6.25 and lisinopril 20 mg Type 2 diabetes with diabetic nephropathy Hemoglobin A1c 6.9 Patient on low-dose insulin protocol with insulin glargine 20 Continue gabapentin 100 mg p.o. b.i.d. ALEKSANDAR on CKD stage 3b, likely prerenal, resolving Cr at admission is 3.47 , baseline creatinine is 1.46(07/15/24) Creatinine is trending down Monitor BMP levels Advise follow up with outpatient Hypertension Blood pressure is on 102/54 Held amlodipine Continue carvedilol 6.25 and lisinopril 20 mg Hyperlipidemia LDL is 46 Continue atorvastatin 80 mg p.o. daily. Normocytic normochromic anemia H&H are 8.0/23.7 Patient is hemodynamically stable Follow up with outpatient Code status: Full code DVT prophylaxis: Eliquis 5 mg p.o. b.i.d. Analgesia/sedation: Morphine/[place] Line/tube: PIV Nutrition: Heart healthy PT: Post acute care Disposition: ID recommended IV antibiotics for 2 weeks. PT recommended post- acute care. Awaiting for placement Anticipate discharge next 24-48 hours. Resident attestation The above note has been reviewed and supervised by a senior resident PGY3 Patient was seen, examined and discussed with the attending physician Rso Hunt MD Internal Medicine Resident, PGY 1 Date of Service: Aug 19, 2025 Billing Provider: EMMY ALMENDAREZ MD Common Visit Codes: [id number] INP/OBS CARE(HIGH) REBECA HUNT, RES Aug 19, 2025 18:19 EMMY ALMENDAREZ MD Aug 20, 2025 13:13
--- NOTE | 2025-08-19 21:31 | PROGRESS NOTE ---
Progress Note ID Providers to CC ~ Progress Note Progress Note: Antibiotic Days: Vanco 3 Lines: Midline Micro: 08/10 Blood- MRSA 08/13 Blood- negative Subjective: Patient's operation was confirmed to involve the soft tissue rather than the bone Objective: Vitals: Afebrile, 83, 16, 117/66, 92% on RA General: Alert, NAD CV: Regular Resp: Clear anteriorly Abd: Soft, nontender, nondistended Ext: L foot in postop dressing Lines: Midline new Laboratory Tests 08/18/25 07:49 08/19/25 04:40 Assessment: // MRSA septicemia, source is SSTI. No vegetation seen on 2D echo. Repeats cleared 08/13 // L foot cellulitis/abscess s/p I&D 08/15. No cultures obtained // ALEKSANDAR versus CKD, GFR 39 // DM, A1c 6.9 // Antibiotic Allergies: none known Plan: - Continue Vanco until 08/27/25 - CBC, CMP, Vanco level weekly and PRN - Wound care per podiatry - Dispo planning: SNF - Physical therapy - Will continue to follow CECILIO MOISE DO Aug 19, 2025 21:31
[2025-08-19] MEDS ORDERED: dextrose 50%-water 50ml dispensing syringe IV PRN ×2 (22:00)
[2025-08-19] MEDS ORDERED: glucagon, human recombinant 1mg kit SUBCUT PRN (22:00)
[2025-08-19] MEDS ORDERED: DEXTROSE 15 GM of carb/4 tabs (each vial/BOTTLE has 4 tablets) PO PRN ×2 (22:00)
[2025-08-20] VITALS (10 sets, daily range): BP systolic 106–120; BP diastolic 54–67; PULSE 78–84; RESP 16–20; TEMP 97.8–97.9; O2SAT 91–95
[2025-08-20 04:46] LABS: CREATININE 2.08 MG/DL (0.60-1.10); PHOSPHORUS 4.6 MG/DL (2.3-4.5); TOTAL CARBON DIOXIDE 29.9 MMOL/L (24-32); eCRCL 47 ML/MIN; eGFR 33 ML/MIN
[2025-08-20] MEDS: INSULIN LISPRO 100 UNIT/ML INSULN.PEN MULTI-DOSE SQ SCH (07:00)
== END 2025-08-20 15:00 | DRG 720 ==
LOC: ER 13:48 → ED HOLD 17:35 → EDBEDREQSVC 21:08 → PCU 3S 22:26 → ORTHO 4S 08-12 22:42
PROVIDERS: ADMIT Internal Medicine Critical Care Medicine; ATTEND Internal Medicine Critical Care Medicine
PROC: 0JBR0ZZ Excision of Left Foot Subcutaneous Tissue and Fascia, Open Approach (ICD-10-PCS; principal; 2025-08-15 09:26)
PROC: 05HF33Z Insertion of Infusion Device into Left Cephalic Vein, Percutaneous Approach (ICD-10-PCS; 2025-08-18)
PROC: B54NZZA Ultrasonography of Left Upper Extremity Veins, Guidance (ICD-10-PCS; 2025-08-18)
DX: A41.02 Sepsis due to Methicillin resistant Staphylococcus aureus (principal); R65.21 Severe sepsis with septic shock; I50.33 Acute on chronic diastolic (congestive) heart failure; L02.612 Cutaneous abscess of left foot; S91.302A Unspecified open wound, left foot, initial encounter; E11.40 Type 2 diabetes mellitus with diabetic neuropathy, unspecified; L03.116 Cellulitis of left lower limb; N17.9 Acute kidney failure, unspecified; Z20.822 Contact with and (suspected) exposure to COVID-19; X58.XXXA Exposure to other specified factors, initial encounter; I11.0 Hypertensive heart disease with heart failure; Z79.4 Long term (current) use of insulin; Z79.82 Long term (current) use of aspirin; Z79.899 Other long term (current) drug therapy; Y93.89 Activity, other specified; Y92.89 Other specified places as the place of occurrence of the external cause; Y99.8 Other external cause status
CPT/HCPCS: 36410; 36415; 71045; 73718; 76937; 80048; 80061; 80202; 81001; 82948; 83036; 83605; 83735; 83880; 84100; 84145; 84484; 85025; 85027; 85651; 87040; 87077; 87081; 87186; 87811; 93005; 93306; 93308; 93926; 94640; 94760; 96365; 96367; 97116; 97161; 97164; 97530; 99285; A4615; A4618; A4620; A4649; A6212; A6213; A6223; A6250; A6253; A6266; A6446; A6449; A7000; C1751; G0378; J0131; J1650; J1815; J1938; J2270; J2371; J2405; J2543; J2704; J3010; J3373; J3375; J3490; J7030; J7040; J7050; J7120; P9045

== ENCOUNTER 2025-10-12 14:17 | Inpatient (IN) | payer MEDICAID ==
[~2025-10-12] VITALS: Ht 190.5 cm; Wt 118.0 kg
[~2025-10-12 14:17] MED LIST changes: -AMIO200T76 PO; +ATOR80TA13 PO; +CARV6.253 PO; +CHOL200026 PO; +ESCI10TA PO; -GEMF600T89 PO; -IBUP600T52 PO; +LISI20TA28 PO; +SEMA2PEN SUBCUT
[2025-10-12 15:01] LABS: MEAN PLATELET VOLUME 7.7 FL (7.4-10.4); RED CELL DISTRIBUTION WIDTH 15.9 % (11.5-14.5)
[2025-10-12 15:12] LABS: CREATININE 4.59 MG/DL (0.60-1.10); TOTAL CARBON DIOXIDE 24.5 MMOL/L (24-32); eCRCL 21 ML/MIN; eGFR 13 ML/MIN
[2025-10-12 15:30] LABS: LEUKOCYTE ESTERASE ,URINE NEGATIVE (Neg); NITRITES, URINE NEGATIVE (Neg); OCCULT BLOOD,URINE NEGATIVE (Neg)
[2025-10-12 15:38] LABS: UA COLLECTION TYPE STRAIGHT CATH
[2025-10-12] MEDS: normal saline 1000ml 1,000 ML IV ONE (15:45)
--- NOTE | 2025-10-12 16:16 | RADIOLOGY REPORT ---
CHEST RADIOGRAPH INDICATION: protocol TECHNIQUE: Single frontal view of the chest was obtained COMPARISON: DI CHEST,SINGLE VIEW on DOS: 09/28/25, DI CHEST,SINGLE VIEW on DOS: 09/26/25, DI CHEST,SINGLE VIEW on DOS: 08/10/25, DI CHEST,SINGLE VIEW on DOS: 08/10/25, DI CHEST,SINGLE VIEW on DOS: 07/15/24 FINDINGS: Lines and Tubes: None Lungs: Clear Pleura: No effusion. No pneumothorax. Cardiomediastinal contours: Unremarkable Bones: Unremarkable IMPRESSION: No acute disease.
--- NOTE | 2025-10-12 16:22 | Physician Documentation ---
History of Present Illness ~ General Chief Complaint: Abnormal Lab(s) Stated Complaint: ABNORMAL LABS Time Seen by MD: 15:15 Primary Medical Doctor: ALLAN Mode of Arrival: EMS, Stretcher History of Present Illness Initial Comments 55-year-old male, son in with abnormal labs The patient was sent in with abnormal outpatient laboratory testing that showed an elevated creatinine. Reportedly his baseline creatinine is around 1, and today was 4 Here in the ED, the patient denies any complaints. He denies any fevers or infectious symptoms. No dizziness, abdominal pain, or other. He did have some diarrhea recently but not today. He does have low blood pressure. He tells me that sometimes his blood pressure goes up and down. He is accompanied by a ingot caster, who says that the last time he had low blood pressure like this he was septic. Medication Reconciliation Allergies: Coded Allergies: No Known Allergies (Unverified , 09/26/25) Scheduled Apixaban (Eliquis), 5 MG PO BID Aspirin (Aspirin EC), 1 TAB PO DAILY, (Reported) Atorvastatin Calcium (Lipitor), 1 TAB PO DAILY, (Reported) Carvedilol (Carvedilol), 1 TAB PO BID, (Reported) Cholecalciferol (Vitamin D3) (Vitamin D3), 100 MCG PO DAILY, (Reported) Escitalopram Oxalate (Lexapro), 1 TAB PO DAILY, (Reported) Furosemide (Furosemide), 1 TAB PO DAILY, (Reported) Gabapentin (Neurontin), 1 CAP PO TID, (Reported) Hum Insulin NPH/Reg Insulin Hm (Humulin 70/30 Kwikpen), 0 SQ BID, (Reported) Lisinopril (Lisinopril), 1 TAB PO DAILY, (Reported) Semaglutide (Ozempic), 0.2 MG SUBCUT Q7D, (Reported) Past Medical History Past Medical History: Diabetes Past Surgical History: noncontributory Alcohol Use: None Drug Use: none Lives with: Other Lives In: Home Review of Systems Constitutional: Denies: fever Gastrointestinal: Reports: diarrhea Physical Exam Physical Exam Vital Signs: Temperature: 97.6, Source: Oral, Heart Rate: 87, Respiratory Rate: 14, BP: 100/53, Pulse Oximetry: 96, Weight: 118.000 Oxygen Flow Rate: 0 Physical Exam General: This is a pleasant and smiling man, sitting calmly in bed, staff m ember at bedside HEENT: Atraumatic, oropharynx appears dry Heart: Regular rate and rhythm, normal-appearing peripheral perfusion Lungs: normal work of breathing, normal oxygen saturation on room air Abdomen: Soft, mild distention in the lower abdomen. Nontender Skin: Pale Left lower extremity: The patient has a wound over his left foot, does not appear infected, no erythema or purulent drainage Neuro: Alert and oriented Psychiatric: Calm and cooperative with exam Progress Results/Orders Results/Orders Orders - MANASA MARTELL MD Culture Blood (10/12/25 15:32) Chest,Single View (10/12/25 15:57) Monitor (10/12/25 15:32) Oxygen (10/12/25 15:32) Saline Lock (10/12/25 15:32) Procalcitonin (10/12/25 15:32) Lacticsepsis (10/12/25 15:32) Normal Saline 1000ml (0.9% Sodium Chlori (10/12/25 15:35) * (B) Rodriguez- Non Protocol * Q12H@07,19 (10/12/25 15:32) Page Hospitalist (10/12/25 16:14) Completed Orders - MANASA MARTELL MD Urinalysis, Cult If Indicated (10/12/25 14:30) Cbc/Diff (10/12/25 14:30) BMP (10/12/25 14:30) Lipase (10/12/25 14:30) CMP (10/12/25 14:30) Chest,Single View (10/12/25 15:57) Medications Received in ER Medications (Trade) Dose Ordered Sig/Lucinda Route PRN Reason Start Time Stop Time Status Last Admin Dose Admin Sodium Chloride 1,000 ml @ 1,000 mls/hr ONCE ONCE IV 10/12/25 15:35 10/12/25 16:34 10/12/25 15:45 1,000 MLS/HR Vital Signs 10/12/25 10/12/25 10/12/25 10/12/25 14:22 14:30 14:45 15:00 Temp 97.6 Pulse 81 81 82 83 Resp 16 14 16 14 B/P (MAP) 81/50 84/50 (61) 81/50 (60) 82/52 (62) Pulse Ox 100 97 98 97 O2 Flow Rate 0 0 0 0 10/12/25 10/12/25 10/12/25 10/12/25 15:15 15:26 15:30 15:45 Pulse 78 78 87 Resp 16 16 14 B/P (MAP) 77/50 (59) 85/49 (61) 100/53 (69) Pulse Ox 98 97 98 O2 Flow Rate 0 0 0 10/12/25 15:49 Pulse Ox 96 O2 Delivery Room Air* O2 Flow Rate 0 FiO2 21 Laboratory Tests Test 10/12/25 14:39 10/12/25 15:01 10/12/25 15:43 White Blood Count 7.6 Red Blood Count 3.32 L Hemoglobin 9.2 L Hematocrit 27.1 L Mean Corpuscular Volume 81.7 Mean Corpuscular Hemoglobin 27.7 Mean Corpuscular Hemoglobin Concent 33.9 Red Cell Distribution Width 15.9 H Platelet Count 258 Mean Platelet Volume 7.7 Neutrophils (%) (Auto) 68.7 Lymphocytes (%) (Auto) 16.4 L Monocytes (%) (Auto) 8.2 Eosinophils (%) (Auto) 6.1 H Basophils (%) (Auto) 0.6 Neutrophils # (Auto) 5.2 Lymphocytes # (Auto) 1.2 Monocytes # (Auto) 0.6 Eosinophils # (Auto) 0.5 Basophils # (Auto) 0.0 CBC Comment Sodium Level 126 L Potassium Level 5.0 Chloride Level 92 L Carbon Dioxide Level 24.5 Anion Gap 10 Blood Urea Nitrogen 103 H Creatinine 4.59 H Estimated GFR/1.73 m2 13 BUN/Creatinine Ratio 22.4 H Glucose Level 161 H Calcium Level 8.1 L Total Bilirubin 0.4 Aspartate Amino Transf (AST/SGOT) 21 Alanine Aminotransferase (ALT/SGPT) 28 Alkaline Phosphatase 67 Total Protein 7.0 Albumin 2.2 L Globulin 4.8 H Albumin/Globulin Ratio 0.5 L Lipase 33 Chemistry Comments Urine Specimen Description Straight cath Urine Color Yellow Urine Clarity Clear Urine pH 5.5 Urine Specific Clayton 1.015 Urine Protein Negative Urine Glucose (UA) Negative Urine Ketones Negative Urine Occult Blood Negative Urine Nitrite Negative Urine Bilirubin Negative Urine Urobilinogen 0.2 Urine Leukocyte Esterase Negative Urine Culture Indicated Not ind Volume Urine Centrifuged 10 ml Urine Comment Consults/PCP Consults/PCP : Additional Comment Consult: I spoke to the internal medicine service, for admission in the hospital Medical Decision Making Additional information obtaine: ingot caster Findings Further information obtained from the ingot caster Differential Diagnosis Sepsis, UTI, pneumonia, dehydration, electrolyte derangement, C diff Assessment The patient presents with elevated creatinine and low blood pressure. He was found to have difficulty urinating and a distended bladder. Rodriguez catheter was placed with 2 L of urine. Labs confirm significant ALEKSANDAR. This is likely postobstructive. He is also hypotensive and was given IV fluids. Given his low blood pressure and acute kidney injury, he will be admitted for further treatment. No evidence of UTI or obvious infection. Departure Impression: Primary Impression: Abnormal laboratory test result Additional Impressions: ALEKSANDAR (acute kidney injury) Urinary obstruction Hypotension Referrals: NO PRIMARY CARE PROVIDER (PCP) Signature Scribe Signature: na Attestation: MANASA Kolb MD Oct 12, 2025 16:22
--- NOTE | 2025-10-12 17:17 | HISTORY AND PHYSICAL ---
History & Physical Providers to CC ~ History of Present Illness Reason for Admit\Complaint: Acute renal failure History of Present Illness Patient is a 55-year-old gentleman who is morbidly obese with multiple comorbidities of CHF CAD chronic renal failure diabetes hypertension hyperlipidemia. Was in his usual state of health does not know what his baseline creatinine in his but knows he has some kidney disease. He was noted to have acute renal failure secondary to obstruction as soon as a Rodriguez catheter was placed patient's abdominal distension and symptoms started improving and patient is being admitted for further follow up of his acute renal failure. Unfortunately patient is a poor historian unable to give any other significant history. Allergies: Coded Allergies: No Known Allergies (Unverified , 09/26/25) Home Medications Home Medications Active Eliquis (Apixaban) 5 Mg Tablet 5 Mg PO BID Reported Carvedilol 6.25 Mg Tablet 1 Tab PO BID Lisinopril 20 Mg Tablet 1 Tab PO DAILY 30 Days Lipitor (Atorvastatin Calcium) 80 Mg Tablet 1 Tab PO DAILY 30 Days Vitamin D3 (Cholecalciferol (Vitamin D3)) 50 Mcg (2000 Unit) Tablet 100 Mcg PO DAILY 30 Days Lexapro (Escitalopram Oxalate) 10 Mg Tablet 1 Tab PO DAILY 30 Days Ozempic (Semaglutide) 2 Mg/0.75 Ml (8 Mg/3 Ml) Pen.injctr 0.2 Mg SUBCUT Q7D 30 Days Aspirin EC (Aspirin) 81 Mg Tablet.dr 1 Tab PO DAILY Furosemide 20 Mg Tablet 1 Tab PO DAILY Humulin 70/30 Kwikpen (Hum Insulin NPH/Reg Insulin Hm) 100 Unit/1 Ml Insuln.pen 0 SQ BID 40 units before breakfast and 42 units before dinner Neurontin (Gabapentin) 300 Mg Capsule 1 Cap PO TID Past Medical History Past Medical History Past Medical History Past Medical History HFpEF CKD Paroxysmal AFib Hypertension Type 2 diabetes mellitus complicated with diabetic neuropathy and nephropathy Past Surgical History Surgical History Comment Incision drainage of the left foot Family History Family History: FH: heart failure MOTHER Past Social History Social History Comment Quit smoking three weeks ago. Used to smoke one pack a day. Denies alcohol or illicit drug use. Exam Vitals: Vital Signs Date Time Temp Pulse Resp B/P (MAP) Pulse Ox O2 Delivery O2 Flow Rate FiO2 10/12/25 16:36 80 16 92/55 (67) 100 10/12/25 15:49 Room Air* 0 21 10/12/25 14:22 97.6 General: Patient is alert and oriented x3 no acute distress lying down comfortably speaking in full sentences HEENT normocephalic nontraumatic head PERRLA. EOMI. CVS first and second heart sounds are regular rate rhythm no murmurs gallops or rubs Respiratory system is clear to auscultate bilaterally no rales rhonchi crackles or wheezing Abdomen is soft obese bowel sounds are positive nontender nondistended Extremities no clubbing cyanosis Plus one bilateral lower extremity edema Neurological exam no focal deficits Skin is intact Diagnostic Data Last Recorded Lab Results: 10/12/25 1439 10/12/25 1439 Additional Plan Assessment and plan -acute renal failure secondary to BPH secondary to obstruction Monitor BUN and creatinine Rodriguez catheter placed in ER -anemia 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 q.h.s. start insulin sliding scale -hypertension Continue home meds Use clonidine PRN -hyperlipidemia Continue statins -history of CHF Monitor -start the patient on DVT prophylaxis Patient is a full code Date of Service: Oct 12, 2025 Billing Provider: EMMY ALMENDAREZ MD Common Visit Codes: [id number] INP/OBS CARE (HIGH) EMMY ALMENDAREZ MD Oct 12, 2025 17:17
[2025-10-12] MEDS ORDERED: magnesium sulf-water 4G/100mL 100 ML IV PRN (17:20)
[2025-10-12] MEDS ORDERED: potassium Cl 40MEQ/1/2NS 520ml 520 ML IV PRN (17:20)
[2025-10-12] MEDS ORDERED: magnesium hydroxide 30ml (MOM) UD suspension PO PRN (17:20)
[2025-10-12] MEDS ORDERED: magnesium sulf-water 2g/50mL 50 ML IV PRN (17:20)
[2025-10-12] MEDS ORDERED: ondansetron/PF 4mg/2ml inj IV PRN (17:20)
[2025-10-12] MEDS ORDERED: HYDROcodone/acetaminophen 5mg/325mg tablet PO PRN (17:20)
[2025-10-12] MEDS ORDERED: magnesium Cl slow-release 64mg tablet PO PRN (17:20)
[2025-10-12] MEDS ORDERED: mag hydrox/Alum hydrox/simeth 30ml oral suspension PO PRN (17:20)
[2025-10-12] MEDS ORDERED: potassium Cl 20 mEq SR tablet PO PRN ×2 (17:20)
[2025-10-12] MEDS: normal saline 1000ml 1,000 ML IV SCH (17:27)
--- NOTE | 2025-10-12 19:08 | RADIOLOGY REPORT ---
EXAM: DI FOOT, COMPLETE (3VW MIN) REASON FOR EXAM: Left foot pain TECHNIQUE: AP, lateral, and oblique views of the left foot are submitted for review. COMPARISON: None FINDINGS: There is no acute fracture or dislocation. There are vascular calcifications. IMPRESSION: No acute fracture or dislocation.
[2025-10-12] MEDS: docusate sod 100mg capsule PO SCH (20:00)
[2025-10-12] MEDS: K and/or MAG REPLACEMENT MC SCH (20:00)
[2025-10-12] MEDS: heparin, porcine 5000 units/ml vial SQ SCH (21:19)
[2025-10-12 22:00] VITALS: BP 119/63; PULSE 88; RESP 14; RESP 15; TEMP 98.2; O2SAT 100
[2025-10-13] MEDS ORDERED: DEXTROSE 15 GM of carb/4 tabs (each vial/BOTTLE has 4 tablets) PO PRN ×2 (00:20)
[2025-10-13] MEDS ORDERED: glucagon, human recombinant 1mg kit SUBCUT PRN (00:20)
[2025-10-13] MEDS ORDERED: dextrose 50%-water 50ml dispensing syringe IV PRN ×2 (00:20)
[2025-10-13 06:00] VITALS: BP 96/56; PULSE 79; RESP 25; TEMP 97.6; O2SAT 95
[2025-10-13] MEDS: INSULIN LISPRO 100 UNIT/ML INSULN.PEN MULTI-DOSE SQ SCH (07:00)
[2025-10-13 07:15] LABS: MEAN PLATELET VOLUME 7.9 FL (7.4-10.4); RED CELL DISTRIBUTION WIDTH 15.8 % (11.5-14.5)
[2025-10-13 07:37] LABS: CREATININE 3.11 MG/DL (0.60-1.10); TOTAL CARBON DIOXIDE 24.4 MMOL/L (24-32); eCRCL 32 ML/MIN; eGFR 21 ML/MIN
[2025-10-13 08:00] VITALS: RESP 14; O2SAT 100
[2025-10-13 11:00] VITALS: BP 96/59; PULSE 84; RESP 22; TEMP 97.6; O2SAT 98
[2025-10-13] MEDS: Nepro carb steady vanilla 8oz. PO SCH (13:21)
[2025-10-13 13:35] LABS: C DIFF ANTIGEN POSITIVE (NEGATIVE); C DIFF SPECIMEN=DIARRHEA? ACCEPTABLE; C DIFFICILE TOXINS A&B POSITIVE (Neg)
[2025-10-13 15:00] VITALS: BP 105/60; PULSE 80; RESP 15; TEMP 97.9; O2SAT 94
[2025-10-13 18:00] VITALS: BP 124/65; PULSE 67; RESP 14; TEMP 98.6; O2SAT 98
[2025-10-13] MEDS ORDERED: vancomycin 125 MG/5 ML UD oral SOLN.RECON 5mL oral syringe (FIRVANQ) PO SCH (20:00)
[2025-10-13] MEDS: vancomycin 125 MG/5 ML UD oral SOLN.RECON 5mL oral syringe (FIRVANQ) PO SCH (22:00)
[2025-10-13] MEDS: carvedilol 6.25mg tablet PO SCH (22:00)
[2025-10-13] MEDS: HYDROcodone/acetaminophen 10/325mg tab PO PRN (22:06)
[2025-10-14] VITALS (8 sets, daily range): BP systolic 97–134; BP diastolic 46–68; PULSE 75–81; RESP 15–22; TEMP 97.2–97.8; O2SAT 96–100
[2025-10-14] MEDS: cholecalciferol (vitamin D3) 1,000 unit (25mcg) tablet PO SCH (07:13)
[2025-10-14] MEDS: aspirin 81mg, enteric-coated 1 TAB TABLET.DR PO SCH (07:13)
[2025-10-14] MEDS: ESCITALOPRAM 10 mg tablet 10 MG TABLET PO SCH (07:13)
[2025-10-14 08:00] LABS: MEAN PLATELET VOLUME 7.1 FL (7.4-10.4); RED CELL DISTRIBUTION WIDTH 15.7 % (11.5-14.5)
[2025-10-14 08:40] LABS: % IRON SATURATION 38 % (11-46)
[2025-10-14 08:42] LABS: CREATININE 1.72 MG/DL (0.60-1.10); TOTAL CARBON DIOXIDE 25.5 MMOL/L (24-32); eCRCL 57 ML/MIN; eGFR 41 ML/MIN
[2025-10-14] MEDS: iron sucrose complex injection 300 MG in normal saline 250ml IV soln 250 ML IV SCH (14:23)
--- NOTE | 2025-10-14 17:44 | CONSULTATION REPORT - RESIDENT ---
Consult Providers to CC Resident Creating Document: FAUSTO GARCÍA RES History of Present Illness Reason for Admit\Complaint: ALEKSANDAR History of Present Illness This is a 55-year-old male with a past medical history of HFpEF, CKD, hypertension, and type 2 diabetes mellitus, presenting to the ER for rising creatinine. He was recently hospitalized for a diabetic left foot infection, underwent I&D, and received prolonged antibiotic therapy. Subsequently, he developed chronic diarrhea and was diagnosed with C. difficile infection. GI was consulted for severe anemia and an acute hemoglobin drop. Despite persistent watery diarrhea, he denies nausea, vomiting, hematemesis, hematochezia, melena, or weight loss. His last colonoscopy one year ago was normal; he has never had an upper endoscopy. He takes aspirin but denies NSAID use. No other symptoms reported. During his last admission, he had documented atrial fibrillation but is not currently on anticoagulation. Allergies: Coded Allergies: No Known Allergies (Unverified , 09/26/25) Home Medications Home Medications Active Eliquis (Apixaban) 5 Mg Tablet 5 Mg PO BID Reported Carvedilol 6.25 Mg Tablet 1 Tab PO BID Lisinopril 20 Mg Tablet 1 Tab PO DAILY 30 Days Lipitor (Atorvastatin Calcium) 80 Mg Tablet 1 Tab PO DAILY 30 Days Vitamin D3 (Cholecalciferol (Vitamin D3)) 50 Mcg (2000 Unit) Tablet 100 Mcg PO DAILY 30 Days Lexapro (Escitalopram Oxalate) 10 Mg Tablet 1 Tab PO DAILY 30 Days Ozempic (Semaglutide) 2 Mg/0.75 Ml (8 Mg/3 Ml) Pen.injctr 0.2 Mg SUBCUT Q7D 30 Days Aspirin EC (Aspirin) 81 Mg Tablet.dr 1 Tab PO DAILY Furosemide 20 Mg Tablet 1 Tab PO DAILY Humulin 70/30 Kwikpen (Hum Insulin NPH/Reg Insulin Hm) 100 Unit/1 Ml Insuln.pen 0 SQ BID 40 units before breakfast and 42 units before dinner Neurontin (Gabapentin) 300 Mg Capsule 1 Cap PO TID Past Medical History Past Medical History HFpEF CKD Paroxysmal AFib Hypertension Type 2 diabetes mellitus complicated with diabetic neuropathy and nephropathy Past Surgical History Surgical History Comment Incision drainage of the left foot Family History Family History: FH: heart failure MOTHER Past Social History Social History Comment Quit smoking three weeks ago. Used to smoke one pack a day. Denies alcohol or illicit drug use. Exam Vitals: Vital Signs Date Time Temp Pulse Resp B/P (MAP) Pulse Ox O2 Delivery O2 Flow Rate FiO2 10/14/25 15:00 97.6 80 20 111/51 (71) 97 Room Air 10/12/25 22:00 0.0 21 General: Awake , alert, and oriented x4 HEENT: Atraumatic, normocephalic, EOMI, anicteric sclera ; pale conjunctiva; moist mucous membranes Neck: Trachea midline. Supple, full range of motion, no JVD Cardiac: Regular rhythm, regular rate with no murmurs all over the precordium. Respiratory: Diminished air movement bilaterally, no wheezing ,rub or rales, Chest wall is symmetric and without deformity. Gastrointestinal: Abdomen symmetric, non-distended, soft, non-tender, normal bowel sounds x4 quadrant, normoactive, no hepatosplenomegaly Musculoskeletal: Bilateral pedal edema. Left foot dressing intact. Skin: Warm and dry Diagnostic Data Last Recorded Lab Results: 10/14/25 0723 10/14/25 0723 Additional Plan Assessment/plan This is a 55-year-old male patient with a past medical history of HFpEF, CKD, hypertension, type 2 diabetes mellitus, who presented to the ER for initially increasing creatinine. GI consult was requested in view of severe anemia sudden drop in hemoglobin, to rule out GI bleed. He is scheduled for EGD tomorrow. Normochromic normocytic anemia, possibly from chronic disease Rule out GI bleeding - patient has chronic diarrhea, C diff infection, left foot diabetic infection and ALEKSANDAR on CKD - Hb 7.7, MCV 81.1, MCHC 33.0, RDW 15.7, iron 49, TIBC 130, ferritin 195 - no overt signs of GI bleeding but had a sudden drop in hemoglobin for the past two days - ordered stool occult blood - started on IV iron replacement by the primary team - scheduled for EGD tomorrow. Colonoscopy should be avoided in view of active C diff infection. ALEKSANDAR on CKD Left foot diabetic infection HFpEF, not on acute exacerbation Paroxysmal AFib Hypertension Type 2 diabetes mellitus - management with the primary team Patient was seen, examined and discussed with the attending physician Dr. Delgadillo Date of Service: Oct 14, 2025 Billing Provider: PARIS RAY MD, LUCAS, RES Oct 14, 2025 17:44
[2025-10-15] VITALS (15 sets, daily range): BP systolic 92–148; BP diastolic 43–70; PULSE 70–83; RESP 14–18; TEMP 97.2–98.8; O2SAT 95–100
[2025-10-15 06:55] LABS: MEAN PLATELET VOLUME 7.7 FL (7.4-10.4); RED CELL DISTRIBUTION WIDTH 15.4 % (11.5-14.5)
[2025-10-15 07:07] LABS: CREATININE 1.40 MG/DL (0.60-1.10); TOTAL CARBON DIOXIDE 27.6 MMOL/L (24-32); eCRCL 70 ML/MIN; eGFR 52 ML/MIN
[2025-10-15 07:22] LABS: HIV ANTIBODY 1&2 RAPID NON-REACTIVE (Neg)
--- NOTE | 2025-10-15 10:21 | PROGRESS NOTE ---
Daily Progress Note Providers to CC Late entry for 10/13/2025 ~ Antibiotic Timeout Antibiotic Ordered?: Yes Subjective Chief complaint I still have the diarrhea Review of systems negative for all 10 systems reviewed Objective Vital Signs Date Time Temp Pulse Resp B/P (MAP) Pulse Ox O2 Delivery O2 Flow Rate FiO2 10/15/25 06:00 98.8 78 18 122/55 (77) 97 Room Air 10/12/25 22:00 0.0 21 Result Diagram: 10/15/25 0553 10/15/25 0553 Patient is alert and oriented x3 no acute distress lying down comfortably speaking in full sentences HEENT normocephalic nontraumatic head CVS first and second heart sounds are regular rate rhythm no murmurs gallops or rubs Respiratory system is clear to auscultate bilaterally no rales rhonchi crackles or wheezing Abdomen is soft bowel sounds are positive nontender nondistended Extremities no clubbing cyanosis plus one bilateral lower extremity edema Problem\Assessment\Plan Assessment and plan -acute renal failure secondary to BPH secondary to obstruction Improving -C diff colitis rule out Patient recently been on antibiotics after I and D -anemia Iron-deficiency Monitor H&H -diabetes type 2 Check hemoglobin A1c Carb consistent diet Check Accu-Cheks q.a.c. q.h.s. start insulin sliding scale -hypertension Continue home meds Use clonidine PRN -hyperlipidemia Continue statins -history of CHF Monitor -start the patient on DVT prophylaxis Date of Service: Oct 13, 2025 Billing Provider: EMMY ALMENDAREZ MD Common Visit Codes: [id number] INP/OBS CARE(HIGH) EMMY ALMENDAREZ MD Oct 15, 2025 10:21
--- NOTE | 2025-10-15 10:23 | PROGRESS NOTE ---
Daily Progress Note Providers to CC Late entry for 10/14/2025 ~ Antibiotic Timeout Antibiotic Ordered?: Yes Subjective Chief complaint-I still have the diarrhea I do not know if there is any blood in it I do not know what color it is Patient adamantly refuses a blood transfusion Review of systems is negative for all 10 systems reviewed Objective Vital Signs Date Time Temp Pulse Resp B/P (MAP) Pulse Ox O2 Delivery O2 Flow Rate FiO2 10/15/25 06:00 98.8 78 18 122/55 (77) 97 Room Air 10/12/25 22:00 0.0 21 Result Diagram: 10/15/25 0553 10/15/2553 Patient is alert and oriented x3 no acute distress lying down comfortably speaking in full sentences HEENT normocephalic nontraumatic head CVS first and second heart sounds are regular rate rhythm no murmurs gallops or rubs Respiratory system is clear to auscultate bilaterally no rales rhonchi crackles or wheezing Abdomen is soft bowel sounds are positive nontender nondistended Extremities no clubbing cyanosis plus one bilateral lower extremity edema Problem\Assessment\Plan Assessment and plan -acute renal failure secondary to BPH secondary to obstruction Improving -C diff colitis rule out Patient is started on p.o. vanco -anemia Patient refusing blood transfusions Consulted GI Possible EGD Colonoscopy about one year ago Iron-deficiency replace IV iron Monitor H&H -diabetes type 2 Check hemoglobin A1c Carb consistent diet Check Accu-Cheks q.a.c. q.h.s. start insulin sliding scale -hypertension Continue home meds Use clonidine PRN -hyperlipidemia Continue statins -history of CHF Monitor -start the patient on DVT prophylaxis Date of Service: Oct 14, 2025 Billing Provider: EMMY ALMENDAREZ MD Common Visit Codes: [id number] INP/OBS CARE(HIGH) EMMY ALMENDAREZ MD Oct 15, 2025 10:23
--- NOTE | 2025-10-15 10:24 | PROGRESS NOTE ---
Daily Progress Note Providers to CC ~ Antibiotic Timeout Antibiotic Ordered?: Yes Subjective Chief complaint none Objective Vital Signs Date Time Temp Pulse Resp B/P (MAP) Pulse Ox O2 Delivery O2 Flow Rate FiO2 10/15/25 06:00 98.8 78 18 122/55 (77) 97 Room Air 10/12/25 22:00 0.0 21 Result Diagram: 10/15/25 0553 10/15/25 0553 Patient is alert and oriented x3 no acute distress lying down comfortably speaking in full sentences HEENT normocephalic nontraumatic head CVS first and second heart sounds are regular rate rhythm no murmurs gallops or rubs Respiratory system is clear to auscultate bilaterally no rales rhonchi crackles or wheezing Abdomen is soft bowel sounds are positive nontender nondistended Extremities no clubbing cyanosis plus one bilateral lower extremity edema Problem\Assessment\Plan Assessment and plan -acute renal failure secondary to BPH secondary to obstruction Improving -C diff colitis rule out Patient is started on p.o. vanco -anemia Patient refusing blood transfusions Consulted GI Possible EGD Colonoscopy about one year ago Iron-deficiency replace IV iron Monitor H&H -diabetes type 2 Check hemoglobin A1c Carb consistent diet Check Accu-Cheks q.a.c. q.h.s. start insulin sliding scale -hypertension Continue home meds Use clonidine PRN -hyperlipidemia Continue statins -history of CHF Monitor -start the patient on DVT prophylaxis Date of Service: Oct 15, 2025 Billing Provider: EMMY ALMENDAREZ MD Common Visit Codes: [id number] INP/OBS CARE(HIGH) EMMY ALMENDAREZ MD Oct 15, 2025 10:24
[2025-10-15] MEDS: pantoprazole 40mg Tablet.DR PO SCH (22:37)
[2025-10-16] VITALS (7 sets, daily range): BP systolic 115–131; BP diastolic 49–85; PULSE 68–93; RESP 13–17; TEMP 97.3–99.3; O2SAT 71–99
[2025-10-16 06:33] LABS: MEAN PLATELET VOLUME 6.9 FL (7.4-10.4); RED CELL DISTRIBUTION WIDTH 15.7 % (11.5-14.5)
[2025-10-16 07:01] LABS: CREATININE 1.26 MG/DL (0.60-1.10); TOTAL CARBON DIOXIDE 28.1 MMOL/L (24-32); eCRCL 78 ML/MIN; eGFR 59 ML/MIN
[2025-10-16 09:24] LABS: HBSAG SCREEN Negative (Negative); HEP B CORE AB, TOT Negative (Negative); HEPATITIS C VIRUS ANTIBODY Reactive (Non Reactive)
[2025-10-16] MEDS ORDERED: potassium Cl 40MEQ/1/2NS 520ml 520 ML IV PRN (10:40)
[2025-10-16] MEDS ORDERED: potassium Cl 20 mEq SR tablet PO PRN ×2 (10:40)
[2025-10-16] MEDS: magnesium sulf-water 2g/50mL 50 ML IV PRN (12:04)
[2025-10-16] MEDS: magnesium sulf-water 4G/100mL 100 ML IV PRN (13:41)
[2025-10-16] MEDS ORDERED: propofol 10mg/ml 20ml vial IV ONE (15:27)
--- NOTE | 2025-10-16 19:43 | PROGRESS NOTE ---
Daily Progress Note Providers to CC ~ Antibiotic Timeout Antibiotic Ordered?: Yes Subjective The patient is states that has diarrhea has improved in his hemoglobin has stabilized as well Objective Vital Signs Date Time Temp Pulse Resp B/P (MAP) Pulse Ox O2 Delivery O2 Flow Rate FiO2 10/16/25 15:00 98.1 68 16 116/70 (85) 97 Room Air 10/15/25 15:40 0.0 10/12/25 22:00 21 Result Diagram: 10/16/25 0608 10/16/25 0608 Gen. No acute distress alert and oriented 4 Lungs clear to ascultation bilaterally, no wheezes rales or rhonchi appreciated Heart normal sinus rhythm no murmurs rubs or clicks noted Abdomen soft nontender bowel sounds are normoactive Lower extremities no clubbing cyanosis, nor edema appreciated bilaterally Problem\Assessment\Plan Assessment and plan -acute renal failure secondary to BPH secondary to obstruction Improving -C diff enterocolitis Continue p.o. vanco -anemia Status post EGD with Dr. Becker demonstrated gastritis will need an outpatient colonoscopy -diabetes type 2 Carb consistent diet Check Accu-Cheks q.a.c. q.h.s. start insulin sliding scale Blood sugars under acceptable control -hypertension Continue home meds Use clonidine PRN -hyperlipidemia Continue statins -history of HFpEF No signs of fluid overload -ALEKSANDAR possibly secondary to vasomotor nephropathy Significantly improved continue monitor daily labs Date of Service: Oct 16, 2025 Billing Provider: VALENCIA NORRIS DO Common Visit Codes: [id number] INP/OBS CARE(HIGH) VALENCIA NORRIS DO Oct 16, 2025 19:43
[2025-10-16] MEDS: K and/or MAG REPLACEMENT MC SCH (20:00)
[2025-10-17] VITALS (8 sets, daily range): BP systolic 108–122; BP diastolic 59–66; PULSE 78–83; RESP 14–22; TEMP 97.5–98.2; O2SAT 95–99
[2025-10-17 06:12] LABS: MEAN PLATELET VOLUME 7.0 FL (7.4-10.4); RED CELL DISTRIBUTION WIDTH 15.6 % (11.5-14.5)
[2025-10-17 06:17] LABS: CREATININE 1.26 MG/DL (0.60-1.10); TOTAL CARBON DIOXIDE 28.4 MMOL/L (24-32); eCRCL 78 ML/MIN; eGFR 59 ML/MIN
--- NOTE | 2025-10-17 17:04 | PROGRESS NOTE ---
Daily Progress Note Providers to CC ~ Antibiotic Timeout Antibiotic Ordered?: Yes Subjective The patient has diarrhea has resolved in his hemoglobin has stabilized. I informed the patient that he will be going back to [facility] once insurance authorization is obtained. Objective Vital Signs Date Time Temp Pulse Resp B/P (MAP) Pulse Ox O2 Delivery O2 Flow Rate FiO2 10/17/25 11:00 97.9 80 16 108/59 (75) 99 Room Air 10/15/25 15:40 0.0 Result Diagram: 10/17/2541 10/17/25 0541 Gen. No acute distress alert and oriented 4 Lungs clear to ascultation bilaterally, no wheezes rales or rhonchi appreciated Heart normal sinus rhythm no murmurs rubs or clicks noted Abdomen soft nontender bowel sounds are normoactive Lower extremities no clubbing cyanosis, nor edema appreciated bilaterally Problem\Assessment\Plan Assessment and plan -acute renal failure secondary to BPH secondary to obstruction Improving -C diff enterocolitis Continue p.o. vanco 10/17 significantly improved diarrhea has a essentially resolved -anemia Status post EGD with Dr. Becker demonstrated gastritis and nonbleeding ulcer will need an outpatient colonoscopy 10/17 hemoglobin has stabilized -diabetes type 2 Carb consistent diet Check Accu-Cheks q.a.c. q.h.s. start insulin sliding scale Blood sugars under acceptable control -hypertension Continue home meds Use clonidine PRN Blood pressure is under acceptable control -hyperlipidemia Continue statins -history of HFpEF No signs of fluid overload -ALEKSANDAR possibly secondary to vasomotor nephropathy Significantly improved continue monitor daily labs Disposition: Transferred to [facility] once insurance authorization is obtained Date of Service: Oct 17, 2025 Billing Provider: VALENCIA NORRIS DO Common Visit Codes: [id number] INP/OBS CARE(HIGH) VALENCIA NORRIS DO Oct 17, 2025 17:03
[2025-10-18] VITALS (7 sets, daily range): BP systolic 92–159; BP diastolic 52–78; PULSE 81–100; RESP 18–27; TEMP 97.8–98.9; O2SAT 93–98
[2025-10-18 08:17] LABS: MEAN PLATELET VOLUME 6.9 FL (7.4-10.4); RED CELL DISTRIBUTION WIDTH 15.9 % (11.5-14.5)
[2025-10-18 08:25] LABS: CREATININE 1.47 MG/DL (0.60-1.10); TOTAL CARBON DIOXIDE 25.0 MMOL/L (24-32); eCRCL 67 ML/MIN; eGFR 50 ML/MIN
--- NOTE | 2025-10-18 16:41 | PROGRESS NOTE- Residence ---
Progress Note - Resident Providers to CC Resident Creating Document: JOHANNA CURTIS, RES CC: PARIS RAY MD ~ Antibiotic Timeout Antibiotic Ordered?: Yes Subjective Patient is examined at bedside. Patient's diarrhea has been improved. Patient's hemoglobin is stable, no drop, no active bleed. Objective Vital Signs Date Time Temp Pulse Resp B/P (MAP) Pulse Ox O2 Delivery O2 Flow Rate FiO2 10/18/25 11:00 97.9 100 27 92/54 (67) 96 Room Air 10/15/25 15:40 0.0 Result Diagram: 10/18/25 0807 10/18/25 0807 General: Alert, awake, oriented, not in acute distress HEENT: PERRLA, no icterus, pallor, lymphadenopathy, carotid bruit Respiratory system: Bilateral vesicular breath sounds heard, no adventitious breath sounds CVS: S1-S2 heard, no murmurs/rubs/gallop GI: Soft, nontender, no organomegaly, no guarding/rigidity, bowel sounds present Neuro: No focal neurological deficits present Extremities: No edema cyanosis clubbing/deformities Skin: Warm and dry Assessment Assessment A 55-year-old male with PMH of HTN and HLD presented to the ED in view of diarrhea and low hemoglobin count. GI is consulted in view of possible upper GI bleed and diarrhea. Patient underwent EGD and was found to have gastritis, nonbleeding ulcer. Patient is recommended for an outpatient colonoscopy. Plan Plan Normochromic normocytic anemia Possible upper GI bleed S/p EGD that revealed nonbleeding gastric ulcer H/H stable Recommend outpatient colonoscopy Continue Protonix 40 mg p.o. C diff enterocolitis Continue p.o. vancomycin Outpatient colonoscopy Defer colonoscopy at this time in view of active C diff colitis HTN HLD HFpEF Diabetes type 2 Management per hospitalist Code status: Full code Diet: Regular Disposition: Awaiting placement at [facility], pending authorization, outpatient colonoscopy Johanna Curtis MD Internal Medicine, PGY 2 Date of Service: Oct 18, 2025 Billing Provider: PARIS RAY MD, GAURAV, RES Oct 18, 2025 16:41
--- NOTE | 2025-10-18 16:45 | PROGRESS NOTE- Residence ---
Progress Note - Resident Providers to CC Resident Creating Document: JOHANNA CURTIS, RES CC: PARIS RAY MD ~ Antibiotic Timeout Antibiotic Ordered?: Yes Subjective Patient examined at bedside. Patient is hemoglobin is stable, no active bleeding. Patient's diarrhea is much improved. No other subjective complaints. Objective Vital Signs Date Time Temp Pulse Resp B/P (MAP) Pulse Ox O2 Delivery O2 Flow Rate FiO2 10/18/25 11:00 97.9 100 27 92/54 (67) 96 Room Air 10/15/25 15:40 0.0 Result Diagram: 10/18/25 0807 10/18/25 0807 General: Alert, awake, oriented, not in acute distress HEENT: PERRLA, no icterus, pallor, lymphadenopathy, carotid bruit Respiratory system: Bilateral vesicular breath sounds heard, no adventitious breath sounds CVS: S1-S2 heard, no murmurs/rubs/gallop GI: Soft, nontender, no organomegaly, no guarding/rigidity, bowel sounds present Neuro: No focal neurological deficits present Extremities: No edema cyanosis clubbing/deformities Skin: Warm and dry Assessment Assessment A 55-year-old male with PMH of HTN and HLD presented to the ED in view of diarrhea and low hemoglobin count. GI is consulted in view of possible upper GI bleed and diarrhea. Patient underwent EGD and was found to have gastritis, nonbleeding ulcer. Patient is recommended for an outpatient colonoscopy. Plan Plan Normochromic normocytic anemia Possible upper GI bleed S/p EGD that revealed nonbleeding gastric ulcer H/H stable Recommend outpatient colonoscopy Continue Protonix 40 mg p.o. C diff enterocolitis Continue p.o. vancomycin Outpatient colonoscopy Defer colonoscopy at this time in view of active C diff colitis HTN HLD HFpEF Diabetes type 2 Management per hospitalist Code status: Full code Diet: Regular Disposition: Awaiting placement at [facility], pending authorization, outpatient colonoscopy Johanna Curtis MD Internal Medicine, PGY 2 Date of Service: Oct 18, 2025 Billing Provider: PARIS RAY MD, SIVA, RES Oct 18, 2025 16:45
--- NOTE | 2025-10-18 19:52 | PROGRESS NOTE ---
Daily Progress Note Providers to CC ~ Antibiotic Timeout Antibiotic Ordered?: Yes Subjective The patient has diarrhea has resolved- [facility] caregiver is at bedside- awaiting transferred to rehab Objective Vital Signs Date Time Temp Pulse Resp B/P (MAP) Pulse Ox O2 Delivery O2 Flow Rate FiO2 10/18/25 17:00 98.4 85 19 107/52 (70) 94 Room Air 10/15/25 15:40 0.0 Result Diagram: 10/18/25 0807 10/18/25 0807 Gen. No acute distress alert and oriented 4 Lungs clear to ascultation bilaterally, no wheezes rales or rhonchi appreciated Heart normal sinus rhythm no murmurs rubs or clicks noted Abdomen soft nontender bowel sounds are normoactive Lower extremities no clubbing cyanosis, nor edema appreciated bilaterally Problem\Assessment\Plan Assessment and plan -acute renal failure secondary volume loss due to diarrhea/ possible vasomotor nephropathy Improving -C diff enterocolitis Continue p.o. vanco 10/17 significantly improved diarrhea has a essentially resolved -anemia Status post EGD with Dr. Becker demonstrated gastritis and nonbleeding ulcer will need an outpatient colonoscopy 10/17 hemoglobin has stabilized 10/18 improving -diabetes type 2 Carb consistent diet Check Accu-Cheks q.a.c. q.h.s. start insulin sliding scale Blood sugars under acceptable control -hypertension Continue home meds Use clonidine PRN Blood pressure is under acceptable control -hyperlipidemia Continue statins -history of HFpEF No signs of fluid overload Disposition: Transferred to [facility] once insurance authorization is obtained Date of Service: Oct 18, 2025 Billing Provider: VALENCIA NORRIS DO Common Visit Codes: [id number] INP/OBS CARE(HIGH) VALENCIA NORRIS DO Oct 18, 2025 19:52
[2025-10-19 02:00] VITALS: BP 110/70; PULSE 88; RESP 20; TEMP 98; O2SAT 98
[2025-10-19 08:00] VITALS: RESP 13; O2SAT 95
--- NOTE | 2025-10-19 10:59 | PROGRESS NOTE- Residence ---
Progress Note - Resident Providers to CC Resident Creating Document: JOHANNA CURTIS, RES CC: PARIS RAY MD ~ Antibiotic Timeout Antibiotic Ordered?: Yes Subjective Patient examined at bedside. Patient is hemoglobin is stable, no active bleeding. Patient's diarrhea is much improved. No other subjective complaints. Objective Vital Signs Date Time Temp Pulse Resp B/P (MAP) Pulse Ox O2 Delivery O2 Flow Rate FiO2 10/19/25 06:00 82 10/19/25 02:00 98.0 20 110/70 (83) 98 Room Air 10/15/25 15:40 0.0 Result Diagram: 10/18/25 0807 10/18/25 0807 General: Alert, awake, oriented, not in acute distress HEENT: PERRLA, no icterus, pallor, lymphadenopathy, carotid bruit Respiratory system: Bilateral vesicular breath sounds heard, no adventitious breath sounds CVS: S1-S2 heard, no murmurs/rubs/gallop GI: Soft, nontender, no organomegaly, no guarding/rigidity, bowel sounds present Neuro: No focal neurological deficits present Extremities: No edema cyanosis clubbing/deformities Skin: Warm and dry Assessment Assessment A 55-year-old male with PMH of HTN and HLD presented to the ED in view of diarrhea and low hemoglobin count. GI is consulted in view of possible upper GI bleed and diarrhea. Patient underwent EGD and was found to have gastritis, nonbleeding ulcer. Patient is recommended for an outpatient colonoscopy. Plan Plan Normochromic normocytic anemia Possible upper GI bleed S/p EGD that revealed nonbleeding gastric ulcer H/H stable Recommend outpatient colonoscopy Continue Protonix 40 mg p.o. C diff enterocolitis Continue p.o. vancomycin Outpatient colonoscopy Defer colonoscopy at this time in view of active C diff colitis HTN HLD HFpEF Diabetes type 2 Management per hospitalist Code status: Full code Diet: Regular Disposition: Awaiting placement at [facility], pending authorization, outpatient colonoscopy. GI team we will be signing of this patient. Johanna Curtis MD Internal Medicine, PGY 2 Date of Service: Oct 19, 2025 Billing Provider: PARIS RAY MD, SIVA, POOJA Oct 19, 2025 10:59
--- NOTE | 2025-10-19 19:50 | DISCHARGE SUMMARY ---
Discharge Summary Providers to CC ~ Discharge Summary Admission Diagnosis: ARF, HYPOTENSION Hospital Course DATE OF ADMISSION: 10/12/2025 DATE OF DISCHARGE: 10/19/2025 Discharge Diagnosis\\Comment: Clostridium difficile enterocolitis Anemia secondary to gastritis and nonbleeding ulcer Type 2 diabetes mellitus Hypertension Hyperlipidemia HFpEF chronic not in acute exacerbation Chronic hepatitis-C Operations\\Procedures: EGD with biopsy Consultants: Dr. Becker transition rn Complications: None Condition on DC: Stable for transfer Continued Medications: Apixaban (Eliquis) 5 Mg Tablet 5 MG PO BID, #60 TAB Aspirin (Aspirin EC) 81 Mg Tablet.dr 1 TAB PO DAILY Atorvastatin Calcium (Lipitor) 80 Mg Tablet 1 TAB PO DAILY for 30 Days, #30 TAB 0 Refills Carvedilol (Carvedilol) 6.25 Mg Tablet 1 TAB PO BID Cholecalciferol (Vitamin D3) (Vitamin D3) 50 Mcg (2000 Unit) Tablet 100 MCG PO DAILY for 30 Days, #30 TAB 0 Refills Escitalopram Oxalate (Lexapro) 10 Mg Tablet 1 TAB PO DAILY for 30 Days, #30 TAB 0 Refills Furosemide (Furosemide) 20 Mg Tablet 1 TAB PO DAILY Gabapentin (Neurontin) 300 Mg Capsule 1 CAP PO TID Hum Insulin NPH/Reg Insulin Hm (Humulin 70/30 Kwikpen) 100 Unit/1 Ml Insuln.pen 0 SQ BID 40 units before breakfast and 42 units before dinner Discontinued Medications: Lisinopril (Lisinopril) 20 Mg Tablet 1 TAB PO DAILY for 30 Days, #30 TAB Semaglutide (Ozempic) 2 Mg/0.75 Ml (8 Mg/3 Ml) Pen.injctr 0.2 MG SUBCUT Q7D for 30 Days, #3 ML 0 Refills Discharge Summary: The patient is admitted by Dr. Octavia Bryant with the following HPI:"Patient is a 55-year-old gentleman who is morbidly obese with multiple comorbidities of CHF CAD chronic renal failure diabetes hypertension hyperlipidemia. Was in his usual state of health does not know what his baseline creatinine in his but knows he has some kidney disease. He was noted to have acute renal failure secondary to obstruction as soon as a Rodriguez catheter was placed patient's abdominal distension and symptoms started improving and patient is being admitted for further follow up of his acute renal failure. Unfortunately patient is a poor historian unable to give any other significant history." The patient initially has a hemoglobin 9.2 this did drop on the 12th 7.0 the patient did have an upper endoscopy with the transition rn Dr. Becker who found gastritis and a nonbleeding gastric ulcer the patient is on Protonix the patient we will need a colonoscopy however this will need to be done in the outpatient setting as the patient had Clostridium difficile enterocolitis and was placed on p.o. vancomycin the patient did not require transfusion during hospitalization hemoglobin normalized and was 9.1 on the day discharge It was confirmed that the patient has chronic hepatitis-C with the patient has a positive antibody for hepatitis-C The patient has type 2 diabetes mellitus his blood sugars were controlled during hospitalization The patient is chronic HFpEF which was not in acute exacerbation. Gen. No acute distress alert and oriented 4 Lungs clear to ascultation bilaterally, no wheezes rales or rhonchi appreciated Heart normal sinus rhythm no murmurs rubs or clicks noted Abdomen soft nontender bowel sounds are normoactive Lower extremities no clubbing cyanosis, nor edema appreciated bilaterally The patient was medically cleared to be transferred to [facility] on 10/19/2025 the patient is to complete a course of p.o. vancomycin of two weeks and I wrote orders to follow up with Dr. Becker outpatient setting and the patient we will need a colonoscopy in the future as well The patient was seen and evaluated on day of discharge. Time spent on discharge 40 minutes *Problems/Diagnosis: (1) Clostridium difficile enterocolitis Total Time Spent on D/C: > 30 Minutes Date of Service: Oct 19, 2025 Billing Provider: VALENCIA NORRIS DO Common Visit Codes: [id number] DISCH DAY >30min VALENCIA NORRIS DO Oct 19, 2025 19:50
== END 2025-10-19 13:25 | DRG 501 ==
LOC: ER 14:18 → ED HOLD 17:23 → PCU 3S 21:51
PROVIDERS: ADMIT Internal Medicine; ATTEND Internal Medicine
PROC: 0DB68ZX Excision of Stomach, Via Natural or Artificial Opening Endoscopic, Diagnostic (ICD-10-PCS; principal; 2025-10-15 14:02)
DX: N40.1 Benign prostatic hyperplasia with lower urinary tract symptoms (principal); A04.72 Enterocolitis due to Clostridium difficile, not specified as recurrent; N17.9 Acute kidney failure, unspecified; I13.0 Hypertensive heart and chronic kidney disease with heart failure and stage 1 through stage 4 chronic kidney disease, or unspecified chronic kidney disease; I50.32 Chronic diastolic (congestive) heart failure; N13.8 Other obstructive and reflux uropathy; D64.9 Anemia, unspecified; E11.22 Type 2 diabetes mellitus with diabetic chronic kidney disease; I48.0 Paroxysmal atrial fibrillation; B19.20 Unspecified viral hepatitis C without hepatic coma; Z79.01 Long term (current) use of anticoagulants; N18.9 Chronic kidney disease, unspecified; E66.01 Morbid (severe) obesity due to excess calories; K25.9 Gastric ulcer, unspecified as acute or chronic, without hemorrhage or perforation; E11.40 Type 2 diabetes mellitus with diabetic neuropathy, unspecified; I95.9 Hypotension, unspecified; E78.5 Hyperlipidemia, unspecified; I25.10 Atherosclerotic heart disease of native coronary artery without angina pectoris; K29.70 Gastritis, unspecified, without bleeding; Z79.82 Long term (current) use of aspirin; Z79.4 Long term (current) use of insulin; Z79.899 Other long term (current) drug therapy; Z87.891 Personal history of nicotine dependence
CPT/HCPCS: 36415; 43239; 71045; 73630; 80048; 80053; 81003; 82607; 82728; 82948; 83540; 83550; 83605; 83690; 83735; 84145; 85025; 86703; 86704; 86803; 86885; 86900; 86901; 87040; 87081; 87324; 87340; 87449; 87522; 96360; 96372; 97110; 97161; 97530; 97535; 99285; A4314; A4615; A5200; A6209; A6212; A6213; A6222; A6223; A6250; A6446; A6449; G0378; J1644; J1756; J1815; J2704; J3420; J3475; J7030; J7040; J7050